=== PATIENT | female | born 1995 | race Caucasian/White ===

== ENCOUNTER 2021-05-29 16:43 | Emergency (ER) | payer OTHER, SELFPAY ==
[2021-05-29 16:48] VITALS: BP 140/62; PULSE 95; RESP 16; TEMP 36.8; O2SAT 99
[2021-05-29 17:01] VITALS: BP 140/62; PULSE 95; RESP 16; TEMP 36.8; O2SAT 99
--- NOTE | 2021-05-29 17:08 | ED.URI ---
HPI - URI/Sore Throat General Chief Complaint: Upper Respiratory Infection Stated Complaint: Fever/Cough/Sore Throat Time Seen by Provider: 05/29/21 17:00 Source: patient and RN notes reviewed Mode of arrival: ambulatory Limitations: no limitations History of Present Illness HPI Narrative: 26-year-old female presents with concern for fever, cough, body aches, sore throat since yesterday. Reports her son was diagnosed with influenza B 2 days ago. In a separate complaint she reports 3-day history of left lower dental/wisdom tooth pain. She denies difficulty swallowing. Reports she has been taking ibuprofen. MD elicited complaint: cough and sore throat Related Data Home Medications Medication Instructions Recorded Confirmed levothyroxine [Euthyrox] 200 mcg PO DAILY 05/29/21 05/29/21 venlafaxine 75 mg PO DAILY 05/29/21 05/29/21 Allergies Allergy/AdvReac Type Severity Reaction Status Date / Time adalimumab Allergy Unknown HIVES Verified 05/29/21 17:00 cefprozil Allergy Unknown Hives / Verified 05/29/21 17:00 Red Face Cephalosporins Allergy Unknown Hives / Verified 05/29/21 17:00 Red Face naproxen Allergy Unknown Hives Verified 05/29/21 17:00 etanercept AdvReac Unknown Hives / Verified 05/29/21 17:00 Red Face CEFUROXIME AXETIL Allergy Unknown Hives / Uncoded 01/26/18 11:02 Red Face Review of Systems Review of Systems: CONSTITUTIONAL: Reports malaise, fever. EYES: Denies visual changes, redness, or discharge. ENT: Denies rhinorrhea, congestion, sinus pain, otalgia. Reports sore throat. CARDIOVASCULAR: Denies chest pain, palpitations, or edema. RESPIRATORY: Reports cough. Denies dyspnea. GASTROINTESTINAL: Denies abdominal pain, nausea, vomiting, diarrhea SKIN: Denies rash or itching. MUSCULOSKELETAL: Reports myalgia. NEUROLOGIC: Denies headache. All systems reviewed & are unremarkable except as noted in HPI and below PMFSH Comments At time of signature, agree with nursing past medical, surgical, social and family history. There is no relevant family history pertinent to the presenting complaint Exam Narrative: GENERAL: Nontoxic-appearing and in no acute distress. HEAD: Normocephalic EYES: PERRLA, conjunctivae clear ENT: Nares clear, clear discharge. Mucous membranes moist. TM pearly henderson with dull light reflex bilaterally; no tragal tenderness. Oropharynx not erythematous without lesions. Tonsils not enlarged and without exudate, no drooling, no hoarseness, no trismus, uvula midline. Carry noted tooth #17 with mild gingival erythema and edema NECK: Supple. No lymphadenopathy CHEST: Clear to auscultation, breath sounds equal. No wheezing, rhonchi, rales, or stridor. No respiratory distress, speaks in full sentences. HEART: Regular rate and rhythm. No murmur heard. SKIN: Warm, dry, no rash. NEURO: Alert and oriented x3. PSYCH: Normal mood and affect Course Course Emergency Course: Patient is aware of diagnosis, understands and agrees to treatment plan. Anticipatory guidance given. Patient agrees to follow-up as directed and is aware of reasons to seek care at the emergency department. Portions of this record may have been created with voice recognition software Level of Care: Express Care Visit Vital Signs Vital signs: Vital Signs Temperature 98.2 F 05/29/21 16:48 Pulse Rate 95 05/29/21 16:48 Respiratory Rate 16 05/29/21 16:48 Blood Pressure 140/62 05/29/21 16:48 Pulse Oximetry 99 05/29/21 16:48 Temperature 98.2 F 05/29/21 17:01 Pulse Rate 95 05/29/21 17:01 Respiratory Rate 16 05/29/21 17:01 Blood Pressure 140/62 05/29/21 17:01 Pulse Oximetry 99 05/29/21 17:01 Reviewed. MDM - URI/Sore Throat MDM Narrative Medical decision making narrative: Differential diagnosis considered: Bonner virus, strep pharyngitis, allergic rhinitis, upper respiratory tract infection, sinusitis, rhinosinusitis, nasopharyngitis. viral pharyngitis, otitis media, otitis externa, pn
== END 2021-05-29 17:13 | disposition home or self-care (01) ==
PROVIDERS: Emergency Provider Nurse Practitioner
DX: B34.9 Viral infection, unspecified (principal); K08.89 Other specified disorders of teeth and supporting structures; J45.909 Unspecified asthma, uncomplicated; M06.9 Rheumatoid arthritis, unspecified; E03.9 Hypothyroidism, unspecified; F32.A Depression, unspecified
CPT/HCPCS: 87804; 99203; G0463

== ENCOUNTER 2021-06-13 14:08 | Emergency (ER) | payer OTHER, SELFPAY ==
--- NOTE | 2021-06-13 14:16 | ED.URI ---
HPI - URI/Sore Throat General Chief Complaint: Upper Respiratory Infection Stated Complaint: tight chest congestion Time Seen by Provider: 06/13/21 14:16 Source: patient and RN notes reviewed History of Present Illness HPI Narrative: Patient is a 26-year-old female who presents the urgent care with complaints of chest congestion, wheezing, congestion and runny nose. Patient states she has been running a fever since Sunday. States that her boyfriend was positive for influenza and COVID. Patient states that her rapid COVID at home was negative. Patient has been taking Mucinex, Tylenol and DayQuil. No other acute complaints. No acute distress noted. Patient aware of the plan of care. Some parts of this dictation were generated by voice recognition software and may contain typographical and/or grammatical inaccuracies. Related Data Home Medications Medication Instructions Recorded Confirmed levothyroxine [Euthyrox] 200 mcg PO DAILY 05/29/21 06/13/21 venlafaxine 75 mg PO DAILY 05/29/21 06/13/21 Allergies Allergy/AdvReac Type Severity Reaction Status Date / Time adalimumab Allergy Unknown HIVES Verified 06/13/21 14:13 cefprozil Allergy Unknown Hives / Verified 06/13/21 14:13 Red Face Cephalosporins Allergy Unknown Hives / Verified 06/13/21 14:13 Red Face naproxen Allergy Unknown Hives Verified 06/13/21 14:13 etanercept AdvReac Unknown Hives / Verified 06/13/21 14:13 Red Face CEFUROXIME AXETIL Allergy Unknown Hives / Uncoded 01/26/18 11:02 Red Face Review of Systems Review of Systems: CONSTITUTIONAL: Reports of fever, chills, sweats EYES: Denies visual changes, redness, or discharge. ENT: Reports of postnasal drainage, rhinorrhea, congestion CARDIOVASCULAR: Denies chest pain, palpitations, or edema. RESPIRATORY: Reports of cough and wheezing GASTROINTESTINAL: Denies abdominal pain, nausea, vomiting, or diarrhea. GENITOURINARY: Denies dysuria or hematuria. SKIN: Denies rash or itching. MUSCULOSKELETAL: Denies back pain, joint pain. Reports of body aches NEUROLOGIC: Denies headache, numbness, or weakness. All other systems reviewed are negative, except as documented in HPI. PMFSH Comments At the time of my signature, I reviewed and agree with the nursing past medical, surgical, social, and family history. There is no relevant family history pertinent to the patient complaint. Exam Narrative: GENERAL: This is a well-nourished, well-developed patient, appears fatigued HEAD: normocephalic, atraumatic. EYES: PERRL. Sclera clear/white. Vision is grossly intact. EARS: External ears normal, auditory canals clear and without drainage, TMs normal without perforation. Hearing grossly intact. NOSE: External nose normal with no obvious nasal discharge. Mild bilateral erythemic nares with copious amounts of yellow rhinorrhea THROAT: Mucous membranes moist. Moderate postnasal drainage NECK: Neck supple CARDIOVASCULAR: Regular rate and rhythm without murmurs, gallops, or rubs. RESPIRATORY: Wheezes and crackles throughout. SKIN: warm, intact with no suspicious lesions or rash, good texture and turgor. NEURO: awake, alert, and oriented to person, place and time. There were no obvious focal neurologic abnormalities. EXTREMITIES: No clubbing, cyanosis, or edema. Course Course Level of Care: Express Care Visit Vital Signs Vital signs: Vital Signs Temperature 98.8 F 06/13/21 14:18 Pulse Rate 100 06/13/21 14:18 Respiratory Rate 22 H 06/13/21 14:18 Blood Pressure 118/78 06/13/21 14:18 Pulse Oximetry 98 06/13/21 14:18 Temperature 98.8 F 06/13/21 14:18 Pulse Rate 100 06/13/21 14:18 Respiratory Rate 22 H 06/13/21 14:18 Blood Pressure 118/78 06/13/21 14:18 Pulse Oximetry 98 06/13/21 14:18 Reviewed MDM - URI/Sore Throat MDM Narrative Medical decision making narrative: Reviewed lab results with the patient. She is aware that she is positive for COVID. Flu swab was negative. Advis
[2021-06-13 14:18] VITALS: BP 118/78; PULSE 100; RESP 22; TEMP 37.1; O2SAT 98
== END 2021-06-13 15:00 | disposition home or self-care (01) ==
PROVIDERS: Emergency Provider Nurse Practitioner Family
DX: U07.1 COVID-19 (principal)
CPT/HCPCS: 87426; 87804; 99213; C9803; G0463

== ENCOUNTER 2021-08-02 10:35 | Emergency (ER) | payer OTHER, SELFPAY ==
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
[2021-08-02 10:39] VITALS: BP 121/82; PULSE 87; RESP 16; TEMP 37.3; O2SAT 100
== END 2021-08-02 10:56 | disposition home or self-care (01) ==
PROVIDERS: Emergency Provider Nurse Practitioner Family
DX: H66.92 Otitis media, unspecified, left ear (principal); L01.00 Impetigo, unspecified; J45.909 Unspecified asthma, uncomplicated; Z86.16 Personal history of COVID-19; M06.9 Rheumatoid arthritis, unspecified; F32.A Depression, unspecified
CPT/HCPCS: 99213; G0463

== ENCOUNTER 2021-10-22 17:18 | Emergency (ER) | payer OTHER, SELFPAY ==
[2021-10-22 17:40] VITALS: BP 126/81; PULSE 99; RESP 16; TEMP 36.3; O2SAT 98
--- NOTE | 2021-10-22 18:33 | ED.EAR ---
HPI - Ear Problem General Chief complaint: Ear Stated complaint: ear inf Time Seen by Provider: 10/22/21 18:33 Source: patient, RN notes reviewed and old records reviewed Mode of arrival: ambulatory Limitations: no limitations History of Present Illness HPI Narrative: 26-year-old female who presents to [facility] care with complaints of past history of some ear infection and ear pain with complaints to 3 days of bilateral earpain. Patient states that she has nbeen on Augment for the past 4 days for sinus infection. Patient denies any fevers or chills or sweats, reports no drainage from her ears, positive for greater ear pain to right than to left ear. MD Complaint: ear pain Location: bilateral Severity: moderate (2/10 to left ear, 7/10 to right ear) Discharge from ear: Reports no Treatment prior to arrival: other (on antibiotic for 4 days,DayQuil, Benadryl, Ibuprofen) Related Data Home Medications Medication Instructions Recorded Confirmed levothyroxine 200 mcg tablet 200 mcg PO DAILY 05/29/21 10/22/21 (Euthyrox) venlafaxine 75 mg tablet 75 mg PO BID 05/29/21 10/22/21 Allergies Allergy/AdvReac Type Severity Reaction Status Date / Time adalimumab Allergy Unknown HIVES Verified 10/22/21 17:50 cefprozil Allergy Unknown Hives / Verified 10/22/21 17:50 Red Face Cephalosporins Allergy Unknown Hives / Verified 10/22/21 17:50 Red Face naproxen Allergy Unknown Hives Verified 10/22/21 17:50 etanercept AdvReac Unknown Hives / Verified 10/22/21 17:50 Red Face CEFUROXIME AXETIL Allergy Unknown Hives / Uncoded 01/26/18 11:02 Red Face Review of Systems Review of Systems: CONSTITUTIONAL: Denies fever, chills, or sweats. EYES: Denies visual changes, redness, or discharge. ENT: Positive for rhinorrhea, congestion,no sore throat, positive for bilatral otalgia. CARDIOVASCULAR: Denies chest pain, palpitations, or edema. RESPIRATORY: Denies cough or dyspnea. GASTROINTESTINAL: Denies abdominal pain, nausea, vomiting, or diarrhea. GENITOURINARY: Denies dysuria or hematuria. SKIN: Denies rash or itching. MUSCULOSKELETAL: Denies back pain, joint pain, or myalgia. NEUROLOGIC: Denies headache, numbness, or weakness. PSYCHIATRIC: Positive for anxiety or depression. All systems reviewed & are unremarkable except as noted in HPI and below PMFSH Past Medical History Medical History (Updated 10/26/21 @ 20:26 by Melissa Colorado NP) Anxiety and depression Asthma COVID-23 Jun 2021 Hypothyroid PTSD (post-traumatic stress disorder) Surgical History Surgical History (Updated 10/26/21 @ 20:26 by Melissa Colorado NP) History of tonsillectomy S/P ureteral stent placement several ureteral stent surgeries Social History Social History (Updated 10/26/21 @ 20:21 by Melissa Colorado NP) Smoking status: Current every day smoker Tobacco type: e-cigarettes/vaping Alcohol intake: unknown Substance use type: marijuana Living arrangements: with family Gender identity (if verbalized by the patient): Female Comments At time of signature, agree with nursing past medical, surgical, social and family history. There is no relevant family history pertinent to the presenting complaint Exam Narrative: GENERAL: Well-appearing, well-nourished, and in no acute distress. HEAD: Normocephalic, atraumatic. EYES: PERRLA and EOMI. ENT: Nares with minimal redness, clear rhinorrhea no epistaxis. Mucous membranes moist.TM;s normal bilaterally ear canals bilaterally red and excoriated with some swelling to right ear canal throat pink no tonsils present. NECK: Supple. no lymphadenopathy CHEST: Clear to auscultation. No respiratory distress.[id number]% on room air HEART: Regular rate and rhythm. No murmur heard. Normal peripheral pulses. ABDOMEN: Soft, nontender, nondistended, normal active bowel sounds. EXTREMITIES: Normal range of motion. No edema. SKIN: Warm, dry, no rash. NEURO: No focal deficits. Alert and oriented x3. Course
== END 2021-10-22 18:55 | disposition home or self-care (01) ==
PROVIDERS: Emergency Provider Registered Nurse; PCP Family Medicine
DX: H60.313 Diffuse otitis externa, bilateral (principal)
CPT/HCPCS: 99213; G0463

== ENCOUNTER 2021-12-01 11:44 | Emergency (ER) | payer OTHER, SELFPAY ==
[2021-12-01 12:04] VITALS: BP 120/81; PULSE 81; RESP 18; TEMP 35.8; O2SAT 100
--- NOTE | 2021-12-01 13:01 | ED.URI ---
HPI - URI/Sore Throat General Chief Complaint: Upper Respiratory Infection Stated Complaint: Body Aches,Congestion,Sore Throat Time Seen by Provider: 12/01/21 13:01 Source: patient and RN notes reviewed Mode of arrival: ambulatory Limitations: no limitations History of Present Illness HPI Narrative: 44-year-old female presented for complaints of fever for 2 days. Temp 101 at onset. Reports body aches, sinus congestion and sore throat. Started with n/v/d today while at work. Endorses sick contacts, works at daycare. Taking up to 800mg ibuprofen every 5-6 hours. Denies cough, sob, wheezing. MD elicited complaint: cough Related Data Home Medications Medication Instructions Recorded Confirmed levothyroxine 200 mcg tablet 200 mcg PO DAILY 05/29/21 10/22/21 (Euthyrox) venlafaxine 75 mg tablet 75 mg PO BID 05/29/21 10/22/21 Allergies Allergy/AdvReac Type Severity Reaction Status Date / Time adalimumab Allergy Unknown HIVES Verified 10/22/21 17:50 cefprozil Allergy Unknown Hives / Verified 10/22/21 17:50 Red Face Cephalosporins Allergy Unknown Hives / Verified 10/22/21 17:50 Red Face naproxen Allergy Unknown Hives Verified 10/22/21 17:50 etanercept AdvReac Unknown Hives / Verified 10/22/21 17:50 Red Face CEFUROXIME AXETIL Allergy Unknown Hives / Uncoded 01/26/18 11:02 Red Face Review of Systems Review of Systems: CONSTITUTIONAL: Endorses malaise, chills, sweats, fever EYES: Denies visual changes, redness, or discharge ENT: Reports rhinorrhea, congestion, denies sinus pain, otalgia CARDIOVASCULAR: Denies chest pain, palpitations, edema RESPIRATORY: Reports cough, post nasal drainage. Denies dyspnea GASTROINTESTINAL: Denies abdominal pain SKIN: Denies rash PMFSH Past Medical History Medical History Anxiety and depression Asthma COVID-23 Jun 2021 Hypothyroid PTSD (post-traumatic stress disorder) Surgical History Surgical History History of tonsillectomy S/P ureteral stent placement several ureteral stent surgeries Social History Social History Smoking status: Current every day smoker Tobacco type: e-cigarettes/vaping Alcohol intake: unknown Substance use type: marijuana Gender identity (if verbalized by the patient): Female Exam Narrative: GENERAL: Ill-appearing, nontoxic EYES: PERRLA, conjunctivae clear ENT: Mucous membranes moist. TM pearly henderson with dull light reflex bilaterally; no tragal tenderness. Oropharynx erythematous without lesions or exudate, tonsils absent. no drooling, no hoarseness, no trismus, uvula midline. No tripod positioning, muffled voice, soft palate or pharyngeal wall bulging NECK: Supple. No lymphadenopathy CHEST: Clear to auscultation, breath sounds equal. HEART: Regular rate and rhythm. No murmur heard. ABD: Soft, nontender SKIN: Warm, dry, no rash. Course Course Emergency Course: Patient is aware of diagnosis, understands and agrees to treatment plan. Anticipatory guidance given. Patient agrees to follow-up as directed and is aware of reasons to seek care at the emergency department. Portions of this record may have been created with voice recognition software Level of Care: Express Care Visit Vital Signs Vital signs: Vital Signs Temperature 96.5 F L 12/01/21 12:04 Pulse Rate 81 12/01/21 12:04 Respiratory Rate 18 12/01/21 12:04 Blood Pressure 120/81 12/01/21 12:04 Pulse Oximetry 100 12/01/21 12:04 Oxygen Delivery Room Air 12/01/21 12:04 Temperature 96.5 F L 12/01/21 12:04 Pulse Rate 81 12/01/21 12:04 Respiratory Rate 18 12/01/21 12:04 Blood Pressure 120/81 12/01/21 12:04 Pulse Oximetry 100 12/01/21 12:04 Oxygen Delivery Room Air 12/01/21 12:04 reviewed MDM - URI/Sore Throat MDM Narrative Medical decision
== END 2021-12-01 13:20 | disposition home or self-care (01) ==
PROVIDERS: Emergency Provider Nurse Practitioner Family
DX: B34.9 Viral infection, unspecified (principal); Z20.822 Contact with and (suspected) exposure to COVID-19; F17.290 Nicotine dependence, other tobacco product, uncomplicated; J45.909 Unspecified asthma, uncomplicated; E03.9 Hypothyroidism, unspecified; F41.9 Anxiety disorder, unspecified; F32.A Depression, unspecified; F43.10 Post-traumatic stress disorder, unspecified; Z86.16 Personal history of COVID-19
CPT/HCPCS: 87081; 87426; 87804; 87880; 99213; C9803; G0463

== ENCOUNTER 2022-03-15 09:36 | Emergency (ER) | payer OTHER, SELFPAY ==
[2022-03-15 10:33] VITALS: BP 118/71; PULSE 79; RESP 18; TEMP 36.6; O2SAT 100; O2SAT 98
[2022-03-15 10:34] VITALS: BP 118/71; O2SAT 100
[2022-03-15 10:35] VITALS: O2SAT 100
--- NOTE | 2022-03-15 10:39 | ED.GENADULT ---
HPI - General Adult General Chief complaint: Vaginal Bleeding Stated complaint: vaginal bleeding Time Seen by Provider: 03/15/22 09:48 Source: patient Mode of arrival: ambulatory Limitations: no limitations History of Present Illness HPI narrative: Patient is a 26 y/o female who presents to the ED with c/o vaginal bleeding. Patient reports she started a new combined oral control pill, , 12 days ago. She was not previously on control. She had her last normal cycle approximately 2.5 weeks ago. Patient states she developed some light vaginal spotting last night. The bleeding became heavier and she noticed she is passing some clots. Bleeding persisted into today, which prompted her presentation. Patient sees an [facility] in [place], [place]. She also reports some lower abdominal cramping, but denies fever, nausea, vomiting, urinary symptoms. Related Data Home Medications Medication Instructions Recorded Confirmed levothyroxine 200 mcg tablet 200 mcg PO DAILY 05/29/21 12/01/21 (Euthyrox) venlafaxine 75 mg tablet 75 mg PO BID 05/29/21 12/01/21 Allergies Allergy/AdvReac Type Severity Reaction Status Date / Time adalimumab AdvReac Mild HIVES Verified 12/01/21 19:11 cefprozil AdvReac Mild Hives / Verified 12/01/21 19:11 Red Face Cephalosporins AdvReac Mild Hives / Verified 12/01/21 19:11 Red Face etanercept AdvReac Mild Hives / Verified 12/01/21 19:11 Red Face naproxen AdvReac Mild Hives Verified 12/01/21 19:11 CEFUROXIME AXETIL AdvReac Mild Hives / Uncoded 12/01/21 19:11 Red Face Review of Systems Review of Systems: CONSTITUTIONAL: Denies fever, chills, or sweats. CARDIOVASCULAR: Denies chest pain. RESPIRATORY: Denies dyspnea. GASTROINTESTINAL: See HPI. GENITOURINARY: See HPI. All systems reviewed & are unremarkable except as noted in HPI and below PMFSH Past Medical History Medical History Anxiety and depression Asthma COVID-23 Jun 2021 Hypothyroid PTSD (post-traumatic stress disorder) Surgical History Surgical History History of tonsillectomy S/P ureteral stent placement several ureteral stent surgeries Social History Social History Smoking status: Current every day smoker Tobacco type: e-cigarettes/vaping Alcohol intake: unknown Substance use type: marijuana Living arrangements: with family Gender identity (if verbalized by the patient): Female Exam Narrative: GENERAL: Well appearing, obese, non-toxic, in no acute distress. HEAD: Normocephalic, atraumatic. NECK: Supple. No adenopathy, no masses. RESPIRATORY: Airway patent, respirations nonlabored. Clear to auscultation bilaterally, no rales, rhonchi, wheezing. CARDIOVASCULAR: Regular rate and rhythm without murmurs, rubs, or gallops. Peripheral pulses 2+ and equal bilaterally. ABDOMINAL: Soft, no significant tenderness to palpation throughout abdomen, nondistended, no hepatosplenomegaly. Normoactive BS. PELVIC: Normal external genitalia. Very mild amount of bleeding in vaginal vault. No brisk bleeding, pooling of blood, or signs of hemorrhage. Normal-appearing cervix. No significant CMT. MUSCULOSKELETAL: Moves all extremities. Strength/ROM intact without gross deformities. SKIN: Warm, dry, normal color. No rashes. NEURO: A&O X3. Speech clear. Cranial nerves II-XII grossly intact. Steady gait. No ataxic movements. PSYCHIATRIC: Appropriate mood and affect. Normal interaction. Course Vital Signs Vital signs: Vital Signs Temperature 98 F 03/15/22 10:33 Pulse Rate 79 03/15/22 10:33 Respiratory Rate 18 03/15/22 10:33 Blood Pressure 118/71 03/15/22 10:33 Pulse Oximetry 100 03/15/22 10:33 Oxygen Delivery Room Air 03/15/22 10:33 Temperature 98 F 03/15/22 12:15 Pulse Rate 71 03/15/22 12:15 Respira
[2022-03-15 11:16] LABS: Basophils Percent Auto 0.2 % (0.2-1.2); Eosinophils Percent Auto 0.6 % (0-4.4); Hematocrit 38.5 % (37.0-47.0); Hemoglobin 12.6 g/dL (12.0-15.0); Immature Granulocyte Absolute 0.01 K/mm3 (0.00-0.031); Immature Granulocyte Percent A 0.2 % (0-0.5); Lymphocytes Absolute Auto 1.68 K/mm3 (0.9-3.2); Lymphocytes Percent Auto 32.4 % (18.3-44.2); Mean Corpuscular HGB Conc 32.7 g/dl (32-36); Mean Corpuscular Hemoglobin 25.2 pg (26-34); Mean Platelet Volume 10.4 fl (7.4-10.4); Monocytes Absolute Auto 0.3 K/mm3 (0.1-0.6); Monocytes Percent Auto 6.6 % (2.6-8.5); Neutrophils Absolute Auto 3.1 K/mm3 (1.3-6.7); Platelet Count Result 245 k/mm3 (150-375); Red Cell Distribution Width 15.7 % (11.5-14.5); White Blood Count 5.2 K/mm3 (4.5-10.0)
[2022-03-15 11:17] LABS: Appearance Urine Clear (Clear); Bilirubin Urine Negative (Negative); Blood Urine 3+ (Negative); Color Urine Yellow (Yellow); Glucose Urine UA Negative (Negative); Ketones Urine Negative (Negative); Leukocyte Esterase Ur Negative LEU/UL (Negative); Nitrate Urine Negative (Negative); Protein Urine Negative (Negative); Specific Grav Ur 1.025 (1.001-1.035); Urobilinogen Urine 0.2 mg/dL (<2.0); pH Urine 5.5 (5.0-9.0)
[2022-03-15 11:24] LABS: Bacteria Urine Trace /hpf; Mucus Urine Rare /lpf; RBC Urine >75 /hpf (0-2); Squamous Epithelial Cell Urine Few /hpf (Few)
[2022-03-15 11:25] LABS: Add Urine Microscopic? YES
[2022-03-15 11:26] LABS: Alanine Aminotransferase 28 U/L (6-35); Albumin Level 4.4 g/dL (3.5-5.1); Alkaline Phosphatase 51 U/L (38-126); Anion Gap 5 mmol/L (8-16); Aspartate Amino Transferase 25 U/L (14-36); Bilirubin,Total 0.4 mg/dL (0.2-1.3); Blood Urea Nitrogen 10 mg/dL (7-17); Calcium 8.8 mg/dL (8.4-10.2); Carbon Dioxide 26 mmol/L (22-30); Chloride 104 mmol/L (98-107); Estimated CRCL calculation 125 ml/min; Estimated Glomerular Filt Rate > 60; Glucose 120 mg/dL (65-110); Potassium 3.7 mmol/L (3.4-5.0); Sodium 135 mmol/L (137-145)
[2022-03-15 12:15] VITALS: PULSE 71; TEMP 36.6
== END 2022-03-15 12:30 | disposition home or self-care (01) ==
PROVIDERS: Emergency Provider Physician Assistant
DX: N93.9 Abnormal uterine and vaginal bleeding, unspecified (principal); F41.9 Anxiety disorder, unspecified; F32.9 Major depressive disorder, single episode, unspecified; J45.909 Unspecified asthma, uncomplicated; E03.9 Hypothyroidism, unspecified; Z86.16 Personal history of COVID-19
CPT/HCPCS: 36415; 80053; 81001; 81025; 85025; 99284

== ENCOUNTER 2022-03-20 08:49 | Emergency (ER) | payer OTHER, SELFPAY ==
[2022-03-20 08:52] VITALS: BP 130/56; PULSE 82; RESP 20; TEMP 37.1; O2SAT 100
--- NOTE | 2022-03-20 10:00 | ED.GENADULT ---
HPI - General Adult General Chief complaint: Upper Respiratory Infection Stated complaint: Vomitng/Sore Throat Time Seen by Provider: 03/20/22 10:00 Source: patient, RN notes reviewed and old records reviewed Mode of arrival: ambulatory Limitations: no limitations History of Present Illness HPI narrative: 26 year old female who presents today with complaints of sore throat since Sunday and also some nausea and vomiting started on Sunday. Patient reports on Sunday she started feeling a little stuffy with some sinus drainage and dry cough, reports fever this morning of 101F. Patient reports she has been taking DayQuil for her symptoms. patient has had COVID vaccinations but has not had Flu shot. Patient does work in a daycare. MD complaint: sore throat, nasal congestion Onset (ago): day(s) (2) Severity scale (1-10): 4 Treatments prior to arrival: other (Dayquil) Related Data Home Medications Medication Instructions Recorded Confirmed levothyroxine 200 mcg tablet 200 mcg PO DAILY 05/29/21 03/20/22 (Euthyrox) venlafaxine 75 mg tablet 75 mg PO BID 05/29/21 03/20/22 Allergies Allergy/AdvReac Type Severity Reaction Status Date / Time cefuroxime Allergy Mild Hives Verified 03/20/22 09:38 adalimumab AdvReac Mild HIVES Verified 03/20/22 09:38 cefprozil AdvReac Mild Hives / Verified 03/20/22 09:38 Red Face Cephalosporins AdvReac Mild Hives / Verified 03/20/22 09:38 Red Face etanercept AdvReac Mild Hives / Verified 03/20/22 09:38 Red Face naproxen AdvReac Mild Hives Verified 03/20/22 09:38 Review of Systems Review of Systems: CONSTITUTIONAL reports malaise, chills, sweats, or fever. EYES: Denies visual changes, redness, or discharge. ENT: Reports rhinorrhea, congestion,no sinus pain, no otalgia positive sore throat. CARDIOVASCULAR: Denies chest pain, palpitations, or edema. RESPIRATORY: Reports cough.? Denies dyspnea. GASTROINTESTINAL: Denies abdominal pain, positive for nausea, vomiting,no diarrhea SKIN: Denies rash or itching. MUSCULOSKELETAL: Denies myalgia. NEUROLOGIC: Denies headache. All systems reviewed & are unremarkable except as noted in HPI and below PMFSH Past Medical History Medical History Anxiety and depression Asthma COVID-23 Jun 2021 Hypothyroid PTSD (post-traumatic stress disorder) Surgical History Surgical History History of tonsillectomy S/P ureteral stent placement several ureteral stent surgeries Social History Social History Smoking status: Current every day smoker Tobacco type: e-cigarettes/vaping Alcohol intake: unknown Substance use type: marijuana Living arrangements: with family Gender identity (if verbalized by the patient): Female Comments At time of signature, agree with nursing past medical, surgical, social and family history. There is no relevant family history pertinent to the presenting complaint Exam Narrative: GENERAL: Well-appearing, well-nourished, and in no acute distress. HEAD: Normocephalic EYES: PERRLA, conjunctivae clear ENT: Nares clear, turbinates edematous and erythematous, clear discharge. Mucous membranes moist. TM pearly henderson with dull light reflex bilaterally; no tragal tenderness. Oropharynx erythematous without lesions. Tonsils not present, throat red with no exudate, no drooling, no hoarseness, no trismus, uvula midline.Painful swallowing. NECK: Supple. lymphadenopathy CHEST: Clear to auscultation, breath sounds equal. No wheezing, rhonchi, rales, or stridor. No respiratory distress, speaks in full sentences.cough, [id number]% on room air. HEART: Regular rate and rhythm. No murmur heard. SKIN: Warm, dry, no rash. NEURO: Alert and oriented x3. PSYCH: Normal mood and affect Course Course Emergency Course: Patient is aware o
== END 2022-03-20 10:15 | disposition home or self-care (01) ==
PROVIDERS: Emergency Provider Registered Nurse
DX: J02.0 Streptococcal pharyngitis (principal); F41.9 Anxiety disorder, unspecified; F32.A Depression, unspecified; E03.9 Hypothyroidism, unspecified; F43.10 Post-traumatic stress disorder, unspecified; Z86.16 Personal history of COVID-19; F17.290 Nicotine dependence, other tobacco product, uncomplicated
CPT/HCPCS: 87880; 99213; G0463

== ENCOUNTER 2022-06-12 09:06 | Emergency (ER) | payer OTHER, SELFPAY ==
[2022-06-12 09:14] VITALS: BP 123/71; PULSE 99; RESP 20; TEMP 37.1; O2SAT 99
--- NOTE | 2022-06-12 09:53 | ED.URI ---
HPI - URI/Sore Throat General Chief Complaint: Upper Respiratory Infection Stated Complaint: cold/flu/throat Time Seen by Provider: 06/12/22 09:54 Source: patient, RN notes reviewed and old records reviewed Mode of arrival: ambulatory Limitations: no limitations History of Present Illness HPI Narrative: 27-year-old female presents to [facility] with complaints of sore throat, body aches cough with some chest congestion with no fevers since yesterday. Patient reports that she had negative COVID test at work today. Patient reports that she has not had any fevers, has been taking Ibuprofen for her symptoms. Patient rates her throat pain as 4/10, denies any dyspnea or inability to swallow. MD elicited complaint: cough and sore throat Pertinent past history: other (strep) Onset (ago): day(s) (since yesterday) Pain scale (0-10): 4 Able to tolerate fluids by mouth: Yes Exacerbating factors: swallowing Treatments prior to arrival: ibuprofen Related Data Home Medications Medication Instructions Recorded Confirmed venlafaxine 75 mg tablet 75 mg PO BID 05/29/21 06/12/22 levothyroxine 200 mcg tablet 200 mcg PO DAILY 06/12/22 06/12/22 ziprasidone HCl 40 mg capsule 40 mg PO DAILY 06/12/22 06/12/22 Allergies Allergy/AdvReac Type Severity Reaction Status Date / Time cefuroxime Allergy Mild Hives Verified 06/12/22 09:39 adalimumab AdvReac Mild HIVES Verified 06/12/22 09:39 cefprozil AdvReac Mild Hives / Verified 06/12/22 09:39 Red Face Cephalosporins AdvReac Mild Hives / Verified 06/12/22 09:39 Red Face etanercept AdvReac Mild Hives / Verified 06/12/22 09:39 Red Face naproxen AdvReac Mild Hives Verified 06/12/22 09:39 Review of Systems Review of Systems: CONSTITUTIONAL:Reports malaise,no chills, sweats, or fever. EYES: Denies visual changes, redness, or discharge. ENT: Reports rhinorrhea, congestion, no sinus pain, no otalgia positive for sore throat. CARDIOVASCULAR: Denies chest pain, palpitations, or edema. RESPIRATORY: Reports cough.? Denies dyspnea. GASTROINTESTINAL: Denies abdominal pain, nausea, vomiting, diarrhea SKIN: Denies rash or itching. MUSCULOSKELETAL:Reports myalgia. NEUROLOGIC: Denies headache. All systems reviewed & are unremarkable except as noted in HPI and below PMFSH Past Medical History Medical History Anxiety and depression Asthma COVID-23 Jun 2021 Hypothyroid PTSD (post-traumatic stress disorder) Surgical History Surgical History History of tonsillectomy S/P ureteral stent placement several ureteral stent surgeries Social History Social History Smoking status: Current every day smoker Tobacco type: e-cigarettes/vaping Alcohol intake: unknown Substance use type: marijuana Living arrangements: with family Gender identity (if verbalized by the patient): Female Comments At time of signature, agree with nursing past medical, surgical, social and family history. There is no relevant family history pertinent to the presenting complaint Exam Narrative: GENERAL: Well-appearing, well-nourished, and in no acute distress. HEAD: Normocephalic EYES: PERRLA, conjunctivae clear ENT: Nares clear, turbinates edematous and erythematous, clear discharge. Mucous membranes moist. TM pearly henderson with dull light reflex bilaterally; no tragal tenderness. Oropharynx erythematous without lesions. Tonsils not present and throat without exudate, no drooling, no hoarseness, no trismus, uvula midline. NECK: Supple. lymphadenopathy CHEST: Clear to auscultation, breath sounds equal. No wheezing, rhonchi, rales, or stridor. No respiratory distress, speaks in full sentences. cough present SAO2 99% on room air HEART: Regular rate and rhythm. No murmur heard. SKIN: Warm, dry, no rash. NEURO: Alert and
== END 2022-06-12 10:12 | disposition home or self-care (01) ==
PROVIDERS: Emergency Provider Registered Nurse
DX: J02.0 Streptococcal pharyngitis (principal); F41.9 Anxiety disorder, unspecified; F32.A Depression, unspecified; E03.9 Hypothyroidism, unspecified; F43.10 Post-traumatic stress disorder, unspecified; Z86.16 Personal history of COVID-19
CPT/HCPCS: 87880; 99213; G0463

== ENCOUNTER 2022-10-27 09:26 | Emergency (ER) | payer OTHER, SELFPAY ==
[2022-10-27 09:34] VITALS: BP 117/78; PULSE 87; RESP 16; TEMP 36.7; O2SAT 99
--- NOTE | 2022-10-27 09:38 | ED.URI ---
HPI - URI/Sore Throat General Chief Complaint: Upper Respiratory Infection Stated Complaint: Sore Throat Time Seen by Provider: 10/27/22 09:51 Source: patient, RN notes reviewed and old records reviewed Mode of arrival: ambulatory Limitations: no limitations History of Present Illness HPI Narrative: 27-year-old female presents to the [facility] with complaints of a sore throat, right ear pain Symptoms started yesterday. Patient states even though she does not have tonsils that she had strep frequently. Patient is diabetic, has a Dexcom, currently blood blood sugar reading 177 Onset (ago): day(s) (1) Related Data Home Medications Medication Instructions Recorded Confirmed venlafaxine 75 mg tablet 75 mg PO BID 05/29/21 10/27/22 levothyroxine 200 mcg tablet 200 mcg PO DAILY 06/12/22 10/27/22 ziprasidone HCl 40 mg capsule 40 mg PO DAILY 06/12/22 10/27/22 rosuvastatin 20 mg tablet 20 mg PO DAILY 10/27/22 10/27/22 venlafaxine 37.5 mg 37.5 mg PO DAILY 10/27/22 10/27/22 capsule,extended release 24 hr Allergies Allergy/AdvReac Type Severity Reaction Status Date / Time cefuroxime Allergy Mild Hives Verified 06/12/22 09:39 adalimumab AdvReac Mild HIVES Verified 06/12/22 09:39 cefprozil AdvReac Mild Hives / Verified 06/12/22 09:39 Red Face Cephalosporins AdvReac Mild Hives / Verified 06/12/22 09:39 Red Face etanercept AdvReac Mild Hives / Verified 06/12/22 09:39 Red Face naproxen AdvReac Mild Hives Verified 06/12/22 09:39 Review of Systems Review of Systems: All systems reviewed & are unremarkable except as noted in HPI and below Constitutional: Constitutional: Reports no additional constitutional complaints Eyes: Eyes: Reports no additional eye complaints ENT: Reports as per HPI, Reports otalgia and Reports sore throat Cardiovascular: Cardiovascular: Reports no additional cardiovascular complaints, Denies chest pain and Denies dyspnea Respiratory: Respiratory: Reports as per HPI, Denies chest congestion, Reports cough and Denies dyspnea Gastrointestinal: Gastrointestinal: Reports no additional gastrointestinal complaints, Denies abdominal pain, Denies nausea and Denies vomiting Musculoskeletal: Musculoskeletal: Reports no additional musculoskeletal complaints Integumentary/Breasts: Skin/Breast: Reports system reviewed and no additional complaints, except as docu Neurologic: Reports system reviewed and no additional complaints, except as documented Psychiatric: Psychiatric: Reports no additional psychiatric complaints Allergic/Immunologic: Allergic/Immunologic: Reports no additional allergic/immunologic complaints PMFSH Past Medical History Medical History Anxiety and depression Asthma COVID-23 Jun 2021 Hypothyroid PTSD (post-traumatic stress disorder) Surgical History Surgical History History of tonsillectomy S/P ureteral stent placement several ureteral stent surgeries Social History Social History Smoking status: Current every day smoker Tobacco type: e-cigarettes/vaping Alcohol intake: unknown Substance use type: marijuana Living arrangements: with family Gender identity (if verbalized by the patient): Female Comments At the time of my signature, I reviewed and agree with the nursing past medical, surgical, social, and family history. There is no relevant family history pertinent to the patient complaint. Exam Const: General: cooperative, healthy appearing, comfortable, no acute distress, well developed, alert and well nourished Nutritional Appearance: well nourished and obese Orientation/consciousness: patient oriented x3 Limitations: no limitations HENMT: Head: normal to inspection Ears: hearing grossly normal bilaterally, external ears normal, EAC's normal and TM abnormal with fluid behind the TM gee
== END 2022-10-27 10:33 | disposition home or self-care (01) ==
PROVIDERS: Emergency Provider Nurse Practitioner
DX: J02.9 Acute pharyngitis, unspecified (principal); J06.9 Acute upper respiratory infection, unspecified; F17.290 Nicotine dependence, other tobacco product, uncomplicated; F12.90 Cannabis use, unspecified, uncomplicated; J45.909 Unspecified asthma, uncomplicated; E03.9 Hypothyroidism, unspecified; F41.9 Anxiety disorder, unspecified; F32.A Depression, unspecified; F43.10 Post-traumatic stress disorder, unspecified; Z96.0 Presence of urogenital implants
CPT/HCPCS: 87081; 87880; 99213; G0463

== ENCOUNTER 2023-07-16 18:33 | Emergency (ER) | payer OTHER, SELFPAY ==
[2023-07-16 18:40] VITALS: BP 129/66; PULSE 73; RESP 20; TEMP 36.6; O2SAT 100
--- NOTE | 2023-07-16 19:09 | ED.URI ---
HPI - URI/Sore Throat General Chief Complaint: Upper Respiratory Infection Stated Complaint: Sore Throat Time Seen by Provider: 07/16/23 19:00 Source: patient, RN notes reviewed and old records reviewed Mode of arrival: ambulatory Limitations: no limitations History of Present Illness HPI Narrative: 28 year old female who presents to [facility] with complaints of 2 day history of sore throat, very painful to swallow, fatigue states history of frequent strep. Patient reports that she has been taking Ibuprofen for her pain, reports that she has felt feverish with some chills and sweats, denies any body aches. Patient is Typw 1 diabetic, has insulin pump with Dexcom glucose monitor. MD elicited complaint: sore throat and other (fatigue, painful swallowing, has felt feverish) Pertinent past history: pneumonia, asthma and other (strep throat) Onset (ago): day(s) (2) Pain scale (0-10): 8 Able to tolerate fluids by mouth: Yes Exacerbating factors: swallowing Treatments prior to arrival: ibuprofen Related Data Home Medications Medication Instructions Recorded Confirmed venlafaxine 75 mg tablet 75 mg PO BID 05/29/21 07/16/23 levothyroxine 200 mcg tablet 200 mcg PO DAILY 06/12/22 07/16/23 rosuvastatin 20 mg tablet 20 mg PO DAILY 10/27/22 07/16/23 venlafaxine 37.5 mg 37.5 mg PO DAILY 10/27/22 07/16/23 capsule,extended release 24 hr blood-glucose sensor (Dexcom G6 07/16/23 07/16/23 Sensor device) insulin pump cart,automated,BT 07/16/23 07/16/23 (Omnipod 5 G6 Pods (Gen 5) subcutaneous cartridge) norgestimate 0.25 mg-ethinyl See Rx Instructions .Route .COMPLEX 07/16/23 07/16/23 estradiol 35 mcg tablet (Sprintec (28)) ziprasidone HCl 40 mg capsule 40 mg PO DAILY 07/16/23 07/16/23 Allergies Allergy/AdvReac Type Severity Reaction Status Date / Time cefuroxime Allergy Mild Hives Verified 07/16/23 19:08 adalimumab AdvReac Mild HIVES Verified 07/16/23 19:08 cefprozil AdvReac Mild Hives / Verified 07/16/23 19:08 Red Face Cephalosporins AdvReac Mild Hives / Verified 07/16/23 19:08 Red Face etanercept AdvReac Mild Hives / Verified 07/16/23 19:08 Red Face naproxen AdvReac Mild Hives Verified 07/16/23 19:08 Review of Systems Review of Systems: CONSTITUTIONAL: Reports malaise, chills, sweats, has felt feverish. EYES: Denies visual changes, redness, or discharge. ENT: Reports rhinorrhea, congestion,no sinus pain,no otalgia and positive for sore throat. CARDIOVASCULAR: Denies chest pain, palpitations, or edema. RESPIRATORY: Reports no cough.? Denies dyspnea. GASTROINTESTINAL: Denies abdominal pain, nausea, vomiting, diarrhea SKIN: Denies rash or itching. MUSCULOSKELETAL: Denies myalgia. NEUROLOGIC: Denies headache. All systems reviewed & are unremarkable except as noted in HPI and below PMFSH Past Medical History Medical History Anxiety and depression Asthma COVID-23 Jun 2021 Diabetes type I Hypothyroid PTSD (post-traumatic stress disorder) Surgical History Surgical History History of tonsillectomy S/P ureteral stent placement several ureteral stent surgeries Social History Social History Smoking status: Current every day smoker Tobacco type: e-cigarettes/vaping Alcohol intake: unknown Substance use type: marijuana Living arrangements: with family Gender identity (if verbalized by the patient): Female Comments At time of signature, agree with nursing past medical, surgical, social and family history. There is no relevant family history pertinent to the presenting complaint Exam Narrative: GENERAL: Well-appearing, well-nourished, and in no acute distress. HEAD: Normocephalic EYES: PERRLA, conjunctivae clear ENT: Nares clear, turbinates edematous and erythematous, clear discharge. Mucou
== END 2023-07-16 19:35 | disposition home or self-care (01) ==
PROVIDERS: Emergency Provider Registered Nurse
DX: J02.9 Acute pharyngitis, unspecified (principal); F17.290 Nicotine dependence, other tobacco product, uncomplicated; J45.909 Unspecified asthma, uncomplicated; E10.9 Type 1 diabetes mellitus without complications; E03.9 Hypothyroidism, unspecified; Z86.16 Personal history of COVID-19; Z96.0 Presence of urogenital implants; F41.9 Anxiety disorder, unspecified; F32.A Depression, unspecified; Z96.41 Presence of insulin pump (external) (internal)
CPT/HCPCS: 87081; 87880; 99213; G0463

== ENCOUNTER 2023-10-08 09:41 | Emergency (ER) | payer OTHER, SELFPAY ==
[2023-10-08 09:46] VITALS: BP 101/61; PULSE 81; RESP 20; TEMP 36.7; O2SAT 100
--- NOTE | 2023-10-08 09:55 | ED.HA ---
HPI - Headache General Chief Complaint: Headache Stated Complaint: migraine Time Seen by Provider: 10/08/23 09:56 Source: patient, RN notes reviewed and old records reviewed Mode of arrival: ambulatory Limitations: no limitations History of Present Illness HPI Narrative: 28 year old female presents to [facility] with complaints of migraine headache which started early this morning 0300 behind her eyes with nausea. Patient states she took Excedrin Migraine at 0400 and went to work but she had to leave work due to pain. Patient is Type I diabetic and is on insulin pump and Dexcom which she reports that sugars have been running higher lately reports that she thinks it is from stress.Patient reports that she has history of migraines usually every couple of month or so occurrence. Patient has no medication for nausea at home states that she normally can take Excedrin migraine and Ibuprofen and it helps but is bad today rates pain 7/10. Patient reports that she needs to get to a dark room and needs a work note. MD elicited complaint: migraine Pertinent past history: migraines and other Onset (ago): hour(s) (0300) Location: frontal and other (behind eyes) Pain scale (0-10): 7 Associated symptoms: nausea Treatments prior to arrival: ibuprofen and other (Excedrin migraine) Related Data Home Medications Medication Instructions Recorded Confirmed venlafaxine 75 mg tablet 75 mg PO BID 05/29/21 07/16/23 levothyroxine 200 mcg tablet 200 mcg PO DAILY 06/12/22 07/16/23 rosuvastatin 20 mg tablet 20 mg PO DAILY 10/27/22 07/16/23 venlafaxine 37.5 mg 37.5 mg PO DAILY 10/27/22 07/16/23 capsule,extended release 24 hr blood-glucose sensor (Dexcom G6 07/16/23 07/16/23 Sensor device) insulin pump cart,automated,BT 07/16/23 07/16/23 (Omnipod 5 G6 Pods (Gen 5) subcutaneous cartridge) norgestimate 0.25 mg-ethinyl See Rx Instructions .Route .COMPLEX 07/16/23 07/16/23 estradiol 35 mcg tablet (Sprintec (28)) ziprasidone HCl 40 mg capsule 40 mg PO DAILY 07/16/23 07/16/23 Allergies Allergy/AdvReac Type Severity Reaction Status Date / Time cefuroxime Allergy Mild Hives Verified 07/16/23 19:08 adalimumab AdvReac Mild HIVES Verified 07/16/23 19:08 cefprozil AdvReac Mild Hives / Verified 07/16/23 19:08 Red Face Cephalosporins AdvReac Mild Hives / Verified 07/16/23 19:08 Red Face etanercept AdvReac Mild Hives / Verified 07/16/23 19:08 Red Face naproxen AdvReac Mild Hives Verified 07/16/23 19:08 Review of Systems Review of Systems: CONSTITUTIONAL: Denies fever, chills, or sweats. EYES: Denies visual changes, redness, or discharge.pain behind eyes ENT: Denies rhinorrhea, congestion, sore throat, or otalgia. CARDIOVASCULAR: Denies chest pain, palpitations, or edema. RESPIRATORY: Denies cough or dyspnea. GASTROINTESTINAL: Denies abdominal pain,reports nausea,no vomiting, or diarrhea. GENITOURINARY: Denies dysuria or hematuria. SKIN: Denies rash or itching. MUSCULOSKELETAL: Denies back pain, joint pain, or myalgia. NEUROLOGIC: Reports migraine headache, no numbness, or weakness. PSYCHIATRIC: Positive for history of anxiety or depression. All systems reviewed & are unremarkable except as noted in HPI and below PMFSH Past Medical History Medical History (Updated 10/09/23 @ 08:06 by Melissa Colorado NP) Anxiety and depression Asthma COVID-23 Jun 2021 Diabetes type I Hx of migraines Hypothyroid PTSD (post-traumatic stress disorder) Surgical History Surgical History History of tonsillectomy S/P ureteral stent placement several ureteral stent surgeries Social History Social History Smoking status: Current every day smoker Tobacco type: e-cigarettes/vaping Alcohol intake: unknown Substance use type: marijuana Living arrangements: with family Gender identity (if verbalized by the patient):
== END 2023-10-08 10:13 | disposition home or self-care (01) ==
PROVIDERS: Emergency Provider Registered Nurse
DX: G43.909 Migraine, unspecified, not intractable, without status migrainosus (principal); F17.290 Nicotine dependence, other tobacco product, uncomplicated; J45.909 Unspecified asthma, uncomplicated; E10.9 Type 1 diabetes mellitus without complications; Z96.41 Presence of insulin pump (external) (internal); E06.9 Thyroiditis, unspecified; Z96.0 Presence of urogenital implants; F41.9 Anxiety disorder, unspecified; F32.A Depression, unspecified; Z86.16 Personal history of COVID-19
CPT/HCPCS: 99213; G0463

== ENCOUNTER 2024-01-12 09:33 | Emergency (ER) | payer OTHER, SELFPAY ==
[2024-01-12 10:15] VITALS: BP 117/59; PULSE 73; RESP 16; TEMP 36.3; O2SAT 100
--- NOTE | 2024-01-12 10:43 | ED.GENADULT ---
HPI - General Adult General Chief complaint: Dental/Oral Stated complaint: Toothache Source: patient Mode of arrival: ambulatory Limitations: no limitations History of Present Illness HPI narrative: Patient presents for evaluation of left upper dental pain. Symptom onset yesterday. She woke from sleep this morning with mild left sided facial swelling. Pain is constant, throbbing, 8/10 in severity. She has had similar symptoms in the past. She has an impacted wisdom tooth in the area where she is experiencing pain. No fever, chills, nausea, vomiting or sore throat. She has been taking ibuprofen for her symptoms. Related Data Home Medications Medication Instructions Recorded Confirmed venlafaxine 75 mg tablet 75 mg PO BID 05/29/21 01/12/24 levothyroxine 200 mcg tablet 200 mcg PO DAILY 06/12/22 01/12/24 rosuvastatin 20 mg tablet 20 mg PO DAILY 10/27/22 01/12/24 venlafaxine 37.5 mg 37.5 mg PO DAILY 10/27/22 01/12/24 capsule,extended release 24 hr blood-glucose sensor (Dexcom G6 07/16/23 01/12/24 Sensor device) insulin pump cart,automated,BT 07/16/23 01/12/24 (Omnipod 5 G6 Pods (Gen 5) subcutaneous cartridge) norgestimate 0.25 mg-ethinyl See Rx Instructions .Route .COMPLEX 07/16/23 01/12/24 estradiol 35 mcg tablet (Sprintec (28)) ziprasidone HCl 40 mg capsule 40 mg PO DAILY 07/16/23 01/12/24 Allergies Allergy/AdvReac Type Severity Reaction Status Date / Time cefuroxime Allergy Mild Hives Verified 01/12/24 10:01 prednisone AdvReac Severe Other Verified 01/12/24 10:03 adalimumab AdvReac Mild HIVES Verified 01/12/24 10:01 cefprozil AdvReac Mild Hives / Verified 01/12/24 10:01 Red Face Cephalosporins AdvReac Mild Hives / Verified 01/12/24 10:01 Red Face etanercept AdvReac Mild Hives / Verified 01/12/24 10:01 Red Face naproxen AdvReac Mild Hives Verified 01/12/24 10:01 Review of Systems Review of Systems: CONSTITUTIONAL: Denies fever, chills, or sweats. EYES: Denies visual changes, redness, or discharge. ENT: Reports left upper dental pain with associated mild facial swelling. Denies rhinorrhea, congestion, sore throat, or otalgia. CARDIOVASCULAR: Denies chest pain, palpitations, or edema. RESPIRATORY: Denies cough or dyspnea. GASTROINTESTINAL: Denies abdominal pain, nausea, vomiting, or diarrhea. GENITOURINARY: Denies dysuria or hematuria. SKIN: Denies rash or itching. MUSCULOSKELETAL: Denies back pain, joint pain, or myalgia. NEUROLOGIC: Denies headache, numbness, dizziness, or weakness. PSYCHIATRIC: Denies anxiety or depression. [facility], [facility] Past Medical History Medical History Anxiety and depression Asthma COVID-23 Jun 2021 Diabetes type I Hx of migraines Hypothyroid PTSD (post-traumatic stress disorder) Surgical History Surgical History History of tonsillectomy S/P ureteral stent placement several ureteral stent surgeries Family History Family History Mother Family history non-contributory Social History Social History Smoking status: Current every day smoker Tobacco type: e-cigarettes/vaping Alcohol intake: unknown Substance use type: marijuana Living arrangements: with family Gender identity (if verbalized by the patient): Female Exam Narrative: GENERAL: Well-appearing, well-nourished, and in no acute distress. HEAD: Normocephalic, atraumatic. EYES: PERRLA and EOMI. ENT: Left upper with some to this impacted. There is tenderness in the gumline at that site. Nares clear, no rhinorrhea or epistaxis. Mucous membranes moist. Oropharynx without tonsillar hypertrophy exudate or other lesions. Bilateral TMs pearly henderson nonbulging NECK: Supple. No adenopathy or masses. No carotid bruits or JVD CHEST: Clear to auscultation. No respiratory distress. No wheezes rales or rhonchi HEART: Regular rate and rhythm. No murmur heard. Normal peripheral pulses. ABDOMEN: Soft, nontender, nondistended, normal active bowel sounds. EXTREMITIES: Normal range of motion. No edema. SKIN: Warm, dry, no rash. NEURO: No focal deficits. Alert and oriented x3. PSYCH: Normal mood and affect. Course Course Emergency Course: This is a 28 yr old female who presented with left upper dental pain. She has an impacted tooth. Will tx with amoxicillin and tramadol. Follow-up with primary provider and dentist. Go to the ER for worsening symptoms. Patient in agreement with plan care. Level of Care: Express Care Visit Vital Signs Vital signs: Vital Signs Temperature 36.3 C L 01/12/24 10:15 Pulse Rate 73 01/12/24 10:15 Respiratory Rate 16 01/12/24 10:15 Blood Pressure 117/59 L 01/12/24 10:15 Pulse Oximetry 100 01/12/24 10:15 Oxygen Delivery Room Air 01/12/24 10:15 Temperature 36.3 C L 01/12/24 10:15 Pulse Rate 73 01/12/24 10:15 Respiratory Rate 16 01/12/24 10:15 Blood Pressure 117/59 L 01/12/24 10:15 Pulse Oximetry 100 01/12/24 10:15 Oxygen Delivery Room Air 01/12/24 10:15 Medical Decision Making Vital Signs Vital Signs: Vital Signs Temperature 36.3 C L 01/12/24 10:15 Pulse Rate 73 01/12/24 10:15 Respiratory Rate 16 01/12/24 10:15 Blood Pressure 117/59 L 01/12/24 10:15 Pulse Oximetry 100 01/12/24 10:15 Oxygen Delivery Room Air 01/12/24 10:15 Temperature 36.3 C L 01/12/24 10:15 Pulse Rate 73 01/12/24 10:15 Respiratory Rate 16 01/12/24 10:15 Blood Pressure 117/59 L 01/12/24 10:15 Pulse Oximetry 100 01/12/24 10:15 Oxygen Delivery Room Air 01/12/24 10:15 Discharge Plan Discharge Clinical Impression: Impacted tooth Patient Disposition: Home, Self-Care Condition: Stable Instructions: Antibiotic Form, Toothache (ED) Patient Language: Ukrainian Prescriptions: New amoxicillin 500 mg tablet 500 mg PO TID Qty: 30 0RF tramadol 50 mg tablet 50 mg PO Q8H PRN (Reason: pain) Qty: 15 0RF No Action venlafaxine 75 mg Tablet 75 mg PO BID levothyroxine 200 mcg tablet 200 mcg PO DAILY venlafaxine 37.5 mg capsule,extended release 24hr 37.5 mg PO DAILY rosuvastatin 20 mg tablet 20 mg PO DAILY norgestimate-ethinyl estradiol [Sprintec (28)] 0.25-35 mg-mcg tablet See Rx Instructions .ROUTE .COMPLEX Rx Instructions: PRESCRIBED ziprasidone HCl 40 mg capsule 40 mg PO DAILY (DME) Dexcom G6 Sensor Device MISCELLANEOUS (DME) Omnipod 5 G6 Pods (Gen 5) Cartridge SUBCUT sumatriptan succinate [Imitrex] 50 mg tablet See Rx Instructions .ROUTE .COMPLEX Qty: 10 0RF Rx Instructions: take 1 tab at onset of headache; if no relief may repeat 1 tab after at least 2 hrs; max = 4 tabs/24 hr Follow-up/Referrals: Hank Alanis [Other] Stand Alone Forms: Work/School Release IP Time of Disposition: 10:42
== END 2024-01-12 10:45 | disposition home or self-care (01) ==
PROVIDERS: Emergency Provider Nurse Practitioner
DX: K01.1 Impacted teeth (principal); F17.290 Nicotine dependence, other tobacco product, uncomplicated; F12.90 Cannabis use, unspecified, uncomplicated; E10.9 Type 1 diabetes mellitus without complications; E03.9 Hypothyroidism, unspecified; J45.909 Unspecified asthma, uncomplicated; F41.9 Anxiety disorder, unspecified; F32.A Depression, unspecified; F43.10 Post-traumatic stress disorder, unspecified; Z86.16 Personal history of COVID-19; Z96.0 Presence of urogenital implants
CPT/HCPCS: 99213; G0463

== ENCOUNTER 2024-03-17 14:17 | Emergency (ER) | payer OTHER, SELFPAY ==
[2024-03-17 14:20] VITALS: BP 108/69; PULSE 90; RESP 20; TEMP 36.8; O2SAT 100
--- OUTSIDE RECORDS SUMMARY | 2024-03-17 14:31 | XMS_ITS | Clinical Summary ---
Author Organization [facility] Address [address] [place] [id number] Care Team Providers Care [employer] Name Role Phone None, Provider MD Primary Care Provider Unavaila ble Allergies Active Allergy Reactions Criticality Noted Date Comments Cephalosporins Rash Low 01/09/2021 Medications levothyroxine 100 MCG tablet Take 200 mcg by mouth every morning. Active hydrOXYzine 25 MG capsule Take 25 mg by mouth. Active sertraline 100 MG tablet Take 100 mg by mouth daily. Active loratadine (CLARITIN) 10 MG tablet Take 1 tablet (10 mg total) by mouth daily. 30 tablet 01/09/2021 Active Active Problems No known active problems Immunizations Name Administration Dates Next Due MODERNA COVID-19 (12+) MRNA, LNP-S, PF, 100 MCG/ 0.5 ML DOSE 10/12/2020,09/21/2020 Family History Medical History Relation Comments None Neg Hx Social History Tobacco Use Types Packs/Day Years Used Date Smoking Tobacco: Never Smokeless Tobacco: Never Alcohol Use Standard Drinks/Week Comments Yes 0 (1 standard drink = 0.6 oz pur e alcohol) rarely Comments Unknown Sex and Gender Information Value Date Recorded Sex Assigned at Not on file Legal Sex Female 10:51 AM [employer] Gender Identity Not on file Sexual Orientation Not on file Last Filed Vital Signs Vital Sign Reading Time Taken Comments Blood Pressure 107/71 01/09/2021 11:06 AM [employer] Pulse 100 01/09/2021 11:06 AM [employer] Temperature 36.1 C (96.9 F) 01/09/2021 11:06 AM [employer] Respiratory Rate 18 01/09/2021 11:06 AM [employer] Oxygen Saturation 100% 01/09/2021 11:06 AM [employer] Inhaled Oxygen Concentration - - Weight 108.9 kg (240 lb) 01/09/2021 11:06 AM [employer] Height 177.8 cm (5' 10 ) 01/09/2021 11:06 AM [employer] Body Mass Index 34.44 01/09/2021 11:06 AM [employer] Plan of Treatment Health Maintenance Due Date Last Done Comments Cervical Cancer Screening Pap Smear (Age 21 to 29) Every 3 Years 1996 Cervical Cancer Screening 1996 Annual Physical 04/30/1999 Hepatitis C 2014 COVID-19 Vaccine ( season) 2023 10/12/2020, 09/21/2020 Influenza Adult (#1) 2023 02/13/2020, 10/24/2012, 12/14/2011, Additional history exists DTaP, Tdap and Td Vaccines (6 - Td or Tdap) 03/17/2030 03/17/2020, 02/13/2020, 08/06/2011, Additional history exists Hepatitis B Vaccines Completed 1996, 1996, 1996, Additional history exists HPV Vaccines Completed 08/04/2010, 03/09, 01/20/2010 Meningococcal Vaccine Aged Out 12/14/2011 No becky waldemar eligible based on patient's age to complete this topic Meningococcal B Vaccine Aged Out No l onger eligible based on patient's age to complete this topic Pneumococcal Vaccine: Pediatrics (0 to 5 Years) and At-Risk Patients (6 to 64 Years) Aged Out No longer eligible based on patient's age to complete this topic RSV Immunizations Under 20 Months Aged Out No longer eligible based on patient's age to complete this topic Insurance [employer] Care Teams [employer] Relationship Specialty Start Date End Date None, Provider, PCP - General 01/09/21
--- OUTSIDE RECORDS SUMMARY | 2024-03-17 14:31 | XMS_ITS | Clinical Summary ---
Author Organization [facility] Address [address] [place] [address] Care Team Providers Care Forder Operator Name Role Phone Miles Duckworth MD Unavailable [phone] Hank Alanis MD Primary Care Provider Caryn Castellon NP Unavailable [phone] Allergies Active Allergy Reactions Criticality Noted Date Comments Adalimumab Hives Medium Cefprozil Hives Medium Cefuroxime Hives Medium Cephalosporins Hives Medium Etanercept Hives Medium Naproxen Hives Medium Medications alcohol swabs (Alcohol Wipes) pads, medicated Use as directed to clean skin prior to insulin injection and finger sticks. E10.65 400 each 023 Active glucagon (Gvoke HypoPen 2-Pack) 1 mg/0.2 mL auto-injectorIndi cations:patient with diabetes mellitus at risk of hypoglycemia Inject 0.2 mL under the skin as needed (for severe hypoglycemia requiring the assistance of another.) E10.65 0.2 mL 11 023 Active OneTouch Delica Plus Lancet 33 gauge misc Inject 1 Device under the skin 4 (four) times a day before meals and nightly E10.65 400 each 023 Active pen needle, diabetic 32 gauge x 5/32 needle Use as directed 4 times a day. E10.65 400 each 023 Active Additional Information Patient not taking.Reported on 03/11/2024 rosuvastatin (CRESTOR) 20 mg tablet Take 1 tablet (20 mg total) by mouth daily 90 tablet 3 023 Active Additional Information Patient not taking.Reported on 03/11/2024 insulin lispro (HumaLOG, ADMELOG) 100 unit/mL pen for injectionIndicati ons:type 1 diabetes mellitus Inject 12 Units under the skin 3 (three) times a day with meals E10.65 45 mL 3 023 Active insulin glargine (LANTUS) 100 unit/mL (3 mL) pen for injection Inject 42 Units under the skin nightly E10.65 45 mL 3 023 Active Additional Information Patient not taking.Reported on 03/11/2024 insulin pump cart,auto,BT-cntr (Omnipod 5 G6 Intro Kit, Gen 5,) cartridgeIndicati ons:Type 1 diabetes mellitus with hyperglycemia (HCC) Please provide 1 omnipod 5 G6 intro kit- (Gen 5) [facility] # [id number] e11.9 1 each Active insulin lispro (HumaLOG) 100 unit/mL vial for injection Fill omnipod with humalog insulin. Total daily dose of insulin 90 units 90 mL 3 024 Active Sprintec, 28, 0.25-35 mg-mcg per tablet Active venlafaxine XR (EFFEXOR-XR) 75 mg 24 hr capsuleIndication s:LUZ (generalized anxiety disorder),Recurre nt major depressive disorder, in partial remission (HCC) Take 1 capsule (75 mg total) by mouth 2 (two) times a day 180 capsule 1 Active ziprasidone (GEODON) 40 mg capsule Take 1 capsule (40 mg total) by mouth nightly 100 capsule 1 024 Active acetone, urine, test strip Test first AM urine and as directed 100 strip 11 024 Active Additional Information Patient not taking.Reported on 03/11/2024 venlafaxine XR (EFFEXOR-XR) 37.5 mg 24 hr capsuleIndication s:Recurrent major depressive disorder, in partial remission (HCC),LUZ (generalized anxiety disorder) Take 1 capsule (37.5 mg total) by mouth daily To be taken along with Venlafaxine 75 mg in am 90 capsule 1 024 2024 Active busPIRone (BUSPAR) 15 mg tabletIndications :Generalized Anxiety Disorder Take 1 tablet (15 mg total) by mouth 2 (two) times a day 180 tablet 1 024 Active clonazePAM (KlonoPIN) 0.5 mg tabletIndications :LUZ (generalized anxiety disorder) Take 1 tablet (0.5 mg total) by mouth daily as needed for anxiety 10 tablet 024 Active valACYclovir (VALTREX) 1 gram tabletIndications :History of cold sores Take 2 tabs (2000 mg) 2 times a days for 1 day. 10 tablet 1 025 Active traMADoL (ULTRAM) 50 mg tablet Take by mouth every 8 (eight) hours as needed 024 Active lidocaine viscous (XYLOCAINE) 2 % solutionIndicatio ns:Mouth Irritation Apply 10 mL to the mouth or throat 3 (three) times a day as needed (for mouth/dental pain) 210 mL 025 Active insulin logging specialist cart,aut,G6/7,cnt r (Omnipod 5 G6-G7 Intro Kt,Gen5,) cartridgeIndicati ons:Type 1 diabetes mellitus with hyperglycemia (HCC) Inject 1 Device under the skin continuously 1 each 1 025 Active lancets misc 1 each by other route daily Use to monitor blood sugar daily. E10.65 300 each 4 025 Active blood-glucose meter kit Use daily as directed for monitoring of blood sugar for diabetes. E10.65 1 kit 1 025 Active blood glucose diagnostic (glucose blood) strip Check blood sugar 3x times a day or as directed. E10.65 300 each 4 025 Active levothyroxine (SYNTHROID) 150 mcg tablet Take 1 tablet (150 mcg total) by mouth daily Take 30 minute prior to food on an empty stomach. 90 tablet 4 025 Active insulin pump cart,auto,BT,G6/7 (Omnipod 5 G6-G7 Pods, Gen 5,) cartridge Inject 1 Device under the skin continuously E10.65 30 each 4 025 Active OneTouch Verio Reflect Meter misc 023 2024 Discontinued(T herapy completed) blood-glucose transmitter (Dexcom G6 Transmitter) deviceIndications :Type 1 diabetes mellitus with hyperglycemia (HCC) 1 Device continuously Use to monitor blood sugar continuously, change every 90 days e11.65 1 each 3 04/08/ 024 2024 Discontinued(T herapy completed) blood-glucose sensor (Dexcom G6 Sensor) deviceIndications :Type 1 diabetes mellitus with hyperglycemia (HCC) 1 Device continuously Use to check glucose level continuously; change every 10 days. E11.65 10 each 3 04/08/ 024 2024 Discontinued(T herapy completed) senna-docusate (PERICOLACE) 8.6-50 mgIndications:con stipation Take 1 tablet by mouth daily 90 tablet 3 024 2024 Discontinued(T herapy completed) insulin pump cart,automated,BT (Omnipod 5 G6 Pods, Gen 5,) cartridgeIndicati ons:Type 1 diabetes mellitus with hyperglycemia (HCC) Please provide 3 boxes (15 pods) omnipod 5 G6 Pod (Gen 5) [facility] # [id number] Change omnipod every 48-72 hrs. Total daily dose of insulin 100 units. e11.9 15 each 11 024 2024 Discontinued(T herapy completed) levothyroxine (SYNTHROID) 175 mcg tablet Take 1 tablet (175 mcg total) by mouth daily Take 30 minute prior to food on an empty stomach. 90 tablet 2 024 2024 Discontinued(R eorder) ondansetron ODT (ZOFRAN-ODT) 4 mg disintegrating tablet 024 2024 Discontinued(T herapy completed) SUMAtriptan (IMITREX) 50 mg tablet 024 2024 Discontinued(T herapy completed) blood glucose diagnostic (glucose blood) strip Use as directed up to four times a day. 400 each 3 024 2024 Discontinued(T herapy completed) valACYclovir (VALTREX) 1 gram tablet Take 2 tabs (2000 mg) 2 times a days for 1 day. 4 tablet 1 025 2024 Discontinued(R eorder) Omnipod 5 G6-G7 Pods, Gen 5, cartridge CHANGE OMNIPOD EVERY 48-72 HOURS. TOTAL DAILY DOSE OF INSULIN 100 UNITS 025 2024 Discontinued(T herapy completed) amoxicillin-clavu lanate (AUGMENTIN) 875-125 mg per tabletIndications :Dental infection Take 1 tablet by mouth 2 (two) times a day for 10 days 20 tablet 025 2024 lidocaine viscous (XYLOCAINE) 2 % solutionIndicatio ns:Mouth Irritation Apply 10 mL to the mouth or throat 3 (three) times a day as needed (for mouth/dental pain) 210 mL 025 2024 Discontinued insulin pump cart,auto,BT,G6/7 (Omnipod 5 G6-G7 Pods, Gen 5,) cartridge Inject 1 Device under the skin continuously E10.65 30 each 4 025 2024 Discontinued(R eorder) Active Problems Problem Noted Date Diagnosed Date Omnipod OP [address] 03/11/2024 Assessment & Plan (03/11/2024 4:19 PM FINANCIAL SPECIALIST): This is a chronic condition which is not at goal. Download reviewed from 02/27/2024 to 03/11/2024 Type of insulin pump- Omnipod 0 P5 Pump settings : Basal- 1.25 IC - 11.5 ISF-28 Active insulin time 3hrs. TARGET GLUCOSE-110 Avg BG- 213 Avg Total daily insulin- 62 units Avg daily basal - 36 units Avg daily bolus - 26 units Interpretation-average glucose 213. 60% time in range. 0 hypoglycemia. 40% hyperglycemia Sleep walking and eating 08/03/2023 Assessment & Plan (08/03/2023 11:03 AM CDT): - new diagnosis - reports symptoms over past 5 months - sleep walking and eating - on multiple medications Venlafaxine, Ziprasidone, Buspar and Clonazepam PRN only --> will lower Venlafaxine dose, see changes made on this visit - concern medications may play a role with parasomnias - also recommend in lab sleep study, referral placed to sleep medicine provider Microcytic anemia 05/03/2023 Assessment & Plan (05/03/2023 9:38 AM CDT): - Noted on lab work on 02/2023 in ED - Prior to that - Reports fatigue and states she has been taking iron supplements - recheck labs, additional labs also ordered for fatigue Lab Results Component Value Date IRON 39 11/29/2022 TIBC 359 11/29/2022 FERRITIN 15 11/29/2022 Lab Results Component Value Date VITB12 780 11/29/2022 Lab Results Component Value Date FOLATE 7.8 11/29/2022 Lab Results Component Value Date TSH 3.89 11/29/2022 Constipation 05/03/2023 Assessment & Plan (05/03/2023 9:56 AM CDT): - chronic condition, worse - worse since being on iron supplementation - start Pericolace daily and can add on laxative PRN Class 1 obesity due to exces s calories with serious comorbidity and body mass index (BMI) of 31.0 to 31.9 in adult 04/09/2023 Assessment & Plan (01/10/2024 3:13 PM FINANCIAL SPECIALIST): Wt Readings from Last 3 Encounters: 01/10/24 97.1 kg (214 lb) 12/02/23 96.3 kg (212 lb 3.2 oz) 11/06/23 94.8 kg (209 lb) Body mass index is 31.59 kg/m . - chronic condition, stable - has had significant improvement with weight loss this year - BMI Follow-up includes: nutrition counseling, exercise counseling and education provided - Recommend to exercise at least 30 minutes moderate to vigorous exercise most days of the week. (minimum 150 minutes weekly) Assessment & Plan (11/06/2023 4:51 PM CDT): Wt Readings from Last 3 Encounters: 11/06/23 94.8 kg (209 lb) 05/03/23 113.3 kg (249 lb 11.2 oz) 04/09/23 113.7 kg (250 lb 9.6 oz) Body mass index is 30.85 kg/m . - chronic condition --> significant improvement noted in terms of her weight with weight loss, has been staying active and exercising and also doing weight lifting - chronic condition, not at goal but improved, keep It up - BMI Follow-up includes: nutrition counseling, exercise counseling and education provided - Recommend to exercise at least 30 minutes moderate to vigorous exercise most days of the week. (minimum 150 minutes weekly) Assessment & Plan (08/03/2023 11:00 AM CDT): Wt Readings from Last 3 Encounters: 05/03/23 113.3 kg (249 lb 11.2 oz) 04/09/23 113.7 kg (250 lb 9.6 oz) 03/01/23 111.1 kg (245 lb) There is no height or weight on file to calculate BMI. - reports current weight of 231, exercising 5 days a week and has helped - chronic condition, not at goal but improved, keep It up - BMI Follow-up includes: nutrition counseling, exercise counseling and education provided - Recommend to exercise at least 30 minutes moderate to vigorous exercise most days of the week. (minimum 150 minutes weekly) Assessment & Plan (05/03/2023 9:33 AM CDT): Wt Readings from Last 3 Encounters: 05/03/23 113.3 kg (249 lb 11.2 oz) 04/09/23 113.7 kg (250 lb 9.6 oz) 03/01/23 111.1 kg (245 lb) Body mass index is 36.86 kg/m . - chronic condition, not at goal - BMI Follow-up includes: nutrition counseling, exercise counseling and education provided - Recommend to exercise at least 30 minutes moderate to vigorous exercise most days of the week. (minimum 150 minutes weekly) Assessment & Plan (04/09/2023 12:08 PM FINANCIAL SPECIALIST): This is a chronic condition which continues 3 lb weight loss since last office visit Encouraged healthy eating and exercise dexcom 7 continuous glucose monitoring device Assessment & Plan (03/11/2024 4:16 PM FINANCIAL SPECIALIST): Continuous glucose monitor (cgm) applied from 02/27/2024 to 03/11/2024 This device was placed for monitor and treatment of blood sugar. Interpretation of data- average glucose 171, 59% time in range, 0 hypoglycemia, 41% hyperglycemia. Assessment & Plan (04/09/2023 12:10 PM FINANCIAL SPECIALIST): Continuous glucose monitor (cgm) applied from 03/12/2023 to 03/25/2023 This device was placed for monitor and treatment of blood sugar. Interpretation of data- average glucose 158, 73% time in range, 0 hypoglycemia, 27% hyperglycemia. History of cold sores 02/13/2023 Overview (02/13/2023): - recurring conditions intermittently - has used Valtrex in past with success - 02/28 - contacted me and send in valtrex for use with outbreaks LUZ (generalized anxiety disorder) 12/15/2022 Assessment & Plan (01/10/2024 3:34 PM FINANCIAL SPECIALIST): - chronic condition, not at goal, worse - anxiety - worse - depression - worse - has coexisting depression and anxiety, PTSD (trauma to sister) - depression is well controlled but anxiety is not at goal - currently on Venlafaxine XR 75 mg BID, Ziprasidone 40 mg nightly, Buspar 7.5 mg BID --> increase Buspar to 15 mg BID, add Venlafaxine ER 37.5 in am to Venlafaxine XR 75 mg BID that she is taking, continue ziprasidone 40 mg nightly - struggles with panic attacks 3-4 times a week (feels short of breath, hot, throat tightness, sweating, fidgetign and has hard time falling asleep and staying asleep) ---> better controlled with clonazepam 0.5 mg BID PRN which she has uses <10 a month - has been on Prozac in teenage years, Citalopram, Zoloft, hydroxyzine - continue with current management with changes made above - referral placed to psychiatry, discussed to use resources from [facility] in [place] as well Assessment & Plan (11/06/2023 4:48 PM CDT): - chronic condition - anxiety - better controlled - depression - better controlled - has coexisting depression and anxiety, PTSD (trauma to sister) - depression is well controlled but anxiety is not at goal - currently on Venlafaxine XR 75 mg BID, Ziprasidone 40 mg nightly, Buspar 7.5 mg BID - struggles with panic attacks 3-4 times a week (feels short of breath, hot, throat tightness, sweating, fidgetign and has hard time falling asleep and staying asleep) ---> better controlled with clonazepam 0.5 mg BID PRN which she has uses <10 a month - has been on Prozac in teenage years, Citalopram, Zoloft, hydroxyzine - continue with current management with changes made above Assessment & Plan (08/03/2023 11:01 AM CDT): - chronic condition - anxiety - well controlled - depression - well controlled - has coexisting depression and anxiety, PTSD (trauma to sister) - depression is well controlled but anxiety is not at goal - currently on Venlafaxine XR 75 mg BID and Venlafaxine XR 37.5 mg daily as well ---> stop Venlafaxine XR 37.5 mg daily for now due to parasomnias - currently on Ziprasidone 40 mg nightly, Buspar 7.5 mg BID - has been on Hydroxyzine 25 mg TID PRN for anxiety - struggles with panic attacks 3-4 times a week (feels short of breath, hot, throat tightness, sweating, fidgetign and has hard time falling asleep and staying asleep) ---> better controlled since starting Clonazepam 0.5 mg BID PRn which she has uses <10 a month - has been on Prozac in teenage years, Citalopram, Zoloft, hydroxyzine - continue with current management with changes made above Assessment & Plan (05/03/2023 9:35 AM CDT): - chronic condition - anxiety improved but not at goal - depression - well controlled - has coexisting depression and anxiety, PTSD (trauma to sister) - depression is well controlled but anxiety is not at goal - currently on Venlafaxine XR 75 mg BID and Venlafaxine XR 37.5 mg daily as well - currently on Ziprasidone 40 mg nightly - has been on Hydroxyzine 25 mg TID PRN for anxiety - struggles with panic attacks 3-4 times a week (feels short of breath, hot, throat tightness, sweating, fidgetign and has hard time falling asleep and staying asleep) ---> better controlled since starting Clonazepam 0.5 mg BID PRn which she has uses <10 a month - has been on Prozac in teenage years, Citalopram, Zoloft, hydroxyzine - started Buspar 7.5 mg BID on prior visit for better anxiety management - continue with current management with changes made above Assessment & Plan (12/22/2022 5:17 AM FINANCIAL SPECIALIST): - chronic condition - anxiety improved but not at goal - depression - well controlled - has coexisting depression and anxiety, PTSD (trauma to sister) - depression is well controlled but anxiety is not at goal - currently on Venlafaxine XR 75 mg BID and Venlafaxine XR 37.5 mg daily as well - currently on Ziprasidone 40 mg nightly - has been on Hydroxyzine 25 mg TID PRN for anxiety - struggles with panic attacks 3-4 times a week (feels short of breath, hot, throat tightness, sweating, fidgetign and has hard time falling asleep and staying asleep) ---> better controlled since starting Clonazepam 0.5 mg BID PRn which she has uses <10 a month, refill provided - has been on Prozac in teenage years, Citalopram, Zoloft, hydroxyzine - start Buspar 7.5 mg BID, script sent in for better anxiety management - continue with current management with changes made above Assessment & Plan (12/15/2022 2:02 PM FINANCIAL SPECIALIST): - chronic condition, not at goal - has coexisting depression and anxiety, PTSD (trauma to sister) - depression is well controlled but anxiety is not at goal - currently on Venlafaxine XR 75 mg BID and Venlafaxine XR 37.5 mg daily as well - currently on Ziprasidone 40 mg nightly - has been on Hydroxyzine 25 mg TID PRN for anxiety - struggles with panic attacks 3-4 times a week (feels short of breath, hot, throat tightness, sweating, fidgetign and has hard time falling asleep and staying asleep) - has been on Prozac in teenage years, Citalopram, Zoloft - start Clonazepam 0.5 mg BID PRN only for better control of anxiety - continue with current management with changes made above Dyslipidemia due to type 1 diabetes mellitus 01/2023 Assessment & Plan (04/09/2023 12:07 PM FINANCIAL SPECIALIST): This is a chronic condition which is not at goal of LDL less than 70 Continue rosuvastatin Encouraged to eat healthy, include fresh fruits and vegetables daily and avoid eating fried foods more than once per week. Encouraged to take medications as prescribed. Assessment & Plan (12/15/2022 2:05 PM FINANCIAL SPECIALIST): - recent diagnosis, better controlled - in setting of T1DM - currently on Crestor 20 mg nightly - most recent lab as shown below - recheck labs, order placed and result as shown below - continue current management Lab Results Component Value Date CHOL 173 11/29/2022 CHOL 241 (H) 09/05/2022 Lab Results Component Value Date HDL 39 (L) 11/29/2022 HDL 36 (L) 09/05/2022 Lab Results Component Value Date LDLCALC 109 11/29/2022 LDLCALC 178 (H) 09/05/2022 Lab Results Component Value Date TRIG 126 11/29/2022 TRIG 144 09/05/2022 Preventative health care 11/16/2022 Assessment & Plan (12/15/2022 2:04 PM FINANCIAL SPECIALIST): - New or chronic worsening conditions: anxiety - Mental health: no significant psychiatric/mental health conditions affecting her day to day functioning - Dental health: Up to date with regular dental care and cleaning. Discussed importance of regular tooth brushing, flossing, and dental visits. - Nutrition: Stressed importance of moderation in sodium/caffeine intake, saturated fat and cholesterol, caloric balance, sufficient intake of fresh fruits, vegetables - Exercise: Stressed the importance of regular exercise - Immunizations: Age and sex appropriate immunizations reviewed and offered - Cervical Cancer screening: up to date, Follows with OBGYN Dr. Duckworth - Breast Cancer screening: n/a - Colon cancer screening: n/a - Lung cancer screening: n/a - Bone desnity/osteoporosis screening: n/a - control: none Rheumatoid arthritis with negative rheumatoid fa ctor 08/22/2022 Assessment & Plan (02/04/2024 12:01 AM FINANCIAL SPECIALIST): - chronic, unknown status - reports diagnosed in childhood at age 6 - used to be on medications for this, used to be seen at [facility] - not on any medications at this time - History of Rheumatoid arthritis involving both hands, unspecified whether rheumatoid factor present - obtained lab work - RA factor was negative on lab work, negative inflammatory markers noted in past - Referral placed to rheumatology again for further workup as prior referral did not go through, new referral placed to Dr. Garcia in [place], [place] placed XR Right hand 11/27 IMPRESSION: No acute fracture. 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 Occasional small erosion favored of the carpals. Given the history, this likely reflects underlying rheumatoid arthritis. There is flexion at the PIP joints of the 2nd through 5th fingers. There is extension of the DIP joint of the 3rd and 4th fingers. In these 2 fingers, this could reflect a boutonniere deformity as can be seen in patients with rheumatoid arthritis. As these views are expected to have the fingers flexed on the lateral views, the PIP joint flexion could be positional. Clinical correlation recommended. Assessment & Plan (11/06/2023 4:53 PM CDT): - chronic, reprots diagnosed in childhood at age 6 - used to be on medications for this, used to be seen at [facility] - not on any medications at this time - History of Rheumatoid arthritis involving both hands, unspecified whether rheumatoid factor present - obtained lab work - RA factor was negative on lab work, negative inflammatory markers noted in past - Referral placed to rheumatology for further workup in past but did not take place, new referral placed to Dr. Garcia XR Right hand 11/27 IMPRESSION: No acute fracture. 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 Occasional small erosion favored of the carpals. Given the history, this likely reflects underlying rheumatoid arthritis. There is flexion at the PIP joints of the 2nd through 5th fingers. There is extension of the DIP joint of the 3rd and 4th fingers. In these 2 fingers, this could reflect a boutonniere deformity as can be seen in patients with rheumatoid arthritis. As these views are expected to have the fingers flexed on the lateral views, the PIP joint flexion could be positional. Clinical correlation recommended. Assessment & Plan (12/22/2022 5:18 AM FINANCIAL SPECIALIST): - chronic, reprots diagnosed in childhood at age 6 - used to be on medications for this, used to be seen at [facility] - not on any medications at this time - History of Rheumatoid arthritis involving both hands, unspecified whether rheumatoid factor present - obtained lab work - RA factor was negative on lab work, negative inflammatory markers noted - Referral placed to rheumatology for further workup XR Right hand 11/27 IMPRESSION: No acute fracture. 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 Occasional small erosion favored of the carpals. Given the history, this likely reflects underlying rheumatoid arthritis. There is flexion at the PIP joints of the 2nd through 5th fingers. There is extension of the DIP joint of the 3rd and 4th fingers. In these 2 fingers, this could reflect a boutonniere deformity as can be seen in patients with rheumatoid arthritis. As these views are expected to have the fingers flexed on the lateral views, the PIP joint flexion could be positional. Clinical correlation recommended. Assessment & Plan (12/15/2022 2:04 PM FINANCIAL SPECIALIST): - chronic, reprots diagnosed in childhood at age 6 - used to be on medications for this, used to be seen at [facility] - not on any medications at this time - History of Rheumatoid arthritis involving both hands, unspecified whether rheumatoid factor present - obtained lab work - RA factor was negative on lab work, negative inflammatory markers noted - Referral to be placed to rheumatology for further workup XR Right hand 11/27 IMPRESSION: No acute fracture. 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 Occasional small erosion favored of the carpals. Given the history, this likely reflects underlying rheumatoid arthritis. There is flexion at the PIP joints of the 2nd through 5th fingers. There is extension of the DIP joint of the 3rd and 4th fingers. In these 2 fingers, this could reflect a boutonniere deformity as can be seen in patients with rheumatoid arthritis. As these views are expected to have the fingers flexed on the lateral views, the PIP joint flexion could be positional. Clinical correlation recommended. Type 1 diabetes mellitus with hyperglycemia 08/05 Assessment & Plan (04/09/2023 12:04 PM FINANCIAL SPECIALIST): This is a chronic condition which is at goal of less than 7%. Personally reviewed most recent A1c - Lab Results Component Value Date HGBA1C 6.7 04/09/2023 Personally reviewed POC blood sugar- at goal 80-180 Lab Results Component Value Date POCGLU 145 04/09/2023 Medication- ContinueLantus 30 units daily, Humalog 10 units 3 times a day 15 minutes prior to meals with correctional insulin (1:50). Will proceed with omnipod OP 5 Monitor blood sugar continuously with dexcom 6/7sensor. Encouraged annual eye exam. Monofilament foot exam completed. protective senses intact Personally reviewed CMP eGFR- 107 Kidney function- normal Urine microalbumin/creatinine ratio - at goal <30 not treated with DILIA/ARB B/P today- at goal of <140/90. Personally reviewed lipid panel. Not at Goal of less than 70. Continue rosuvastatin. Assessment & Plan (09/04/2022 3:37 PM CDT): This is a chronic condition which is improving, close to goal of less than 7%. Personally reviewed most recent A1c - Lab Results Component Value Date HGBA1C 9.9 (H) 08/19/2022 Glycemic management indicator is at 7.3% Personally reviewed POC blood sugar- Latest Reference Range & Units 09/04/22 14:46 Glucose POC mg/dL 122 at goal 80-180 Medication- Continue Lantus 30 units daily HS, Humalog 10 units 15 minutes prior to 3 meals a day-with a 1-50 correct Monitor blood sugar continuously with Dexcom 7 sensor. Encouraged annual eye exam. Monofilament foot exam completed. protective senses intact Personally reviewed CMP eGFR- 124 Kidney function- normal Urine microalbumin/creatinine ratio - order. goal <30 not treated with DILIA/ARB B/P today-at goal of <140/90. Ordered lipid panel. Goal of less than 70. Childbearing age, will consider statin therapy depending on LDL results. Acquired hypothyroidism 08/20/2022 Overview (11/06/2023): Managed by endocrinology Assessment & Plan (05/04/2023 10:22 AM CDT): - chronic, worse - need adjustment of her tyroid function based on lab test result obtained - diagnosed in teenage years, has T1DM, RA - currently on Levothyroxine 175 mcg daily - Recommend taking Levothryoxine on a empty stomach, which means one hour before eating or two hours after eating. - Discussed food in the stomach will interfere with absorption of Levothyroxine. - Discussed Calcium, antacids and iron supplements will interfere with the absorption of Levothyroxine, encouraged to take these at a different time of the day. - continue current therapy, recheck labs, order placed Lab Results Component Value Date TSH 10.15 (H) 05/03/2023 TSH 3.89 11/29/2022 TSH 0.17 (L) 08/19/2022 Assessment & Plan (04/09/2023 12:08 PM FINANCIAL SPECIALIST): This is a chronic condition which is at goal of TSH between 0.3 to 4.2 mclUnits/ml Personally reviewed lab. Lab Results Component Value Date TSH 3.89 11/29/2022 TSH 0.17 (L) 08/19/2022 TSH 69.64 (H) 10/29/2017 Continue Levothryoxine 175 mcg po daily in am Discussed the importance of taking Levothryoxine on a empty stomach, which means one hour before eating or two hours after eating. Discussed food in the stomach will interfere with absorption of Levothyroxine. Discussed Calcium, antacids and iron supplements will interfere with the absorption of Levothyroxine, encouraged to take these at a different time of the day. Assessment & Plan (12/15/2022 2:06 PM FINANCIAL SPECIALIST): - chronic, better controlled - diagnosed in teenage years, has T1DM, RA - currently on Levothyroxine 175 mcg daily (this was decreased from 200 mcg in August when she was diagnosed with T2DM and was noted to have too high of thyroid level) - recheck labs, most recent labs as shown below - Discussed the importance of taking Levothryoxine on a empty stomach, which means one hour before eating or two hours after eating. - Discussed food in the stomach will interfere with absorption of Levothyroxine. - Discussed Calcium, antacids and iron supplements will interfere with the absorption of Levothyroxine, encouraged to take these at a different time of the day. - continue current therapy Lab Results Component Value Date TSH 3.89 11/29/2022 TSH 0.17 (L) 08/19/2022 TSH 69.64 (H) 10/29/2017 Assessment & Plan (09/04/2022 3:37 PM CDT): This is a chronic condition which is not at goal of TSH between 0.3 to 4.2 mclUnits/ml Personally reviewed lab. Lab Results Component Value Date TSH 0.17 (L) 08/19/2022 TSH 69.64 (H) 10/29/2017 TSH 58.72 (H) 03/17/2016 Continue Levothryoxine 175 mcg po daily in am. Will be followed by Dr. Sun for her thyroid disease Discussed the importance of taking Levothryoxine on a empty stomach, which means one hour before eating or two hours after eating. Discussed food in the stomach will interfere with absorption of Levothyroxine. Discussed Calcium, antacids and iron supplements will interfere with the absorption of Levothyroxine, encouraged to take these at a different time of the day. Repeat TSH, T4 in 6 weeks, Recurrent major depressive disorder, in partial remission 08/20/2022 Assessment & Plan (01/10/2024 3:34 PM FINANCIAL SPECIALIST): - chronic condition, not at goal, worse - anxiety - worse - depression - worse - has coexisting depression and anxiety, PTSD (trauma to sister) - depression is well controlled but anxiety is not at goal - currently on Venlafaxine XR 75 mg BID, Ziprasidone 40 mg nightly, Buspar 7.5 mg BID --> increase Buspar to 15 mg BID, add Venlafaxine ER 37.5 in am to Venlafaxine XR 75 mg BID that she is taking, continue ziprasidone 40 mg nightly - struggles with panic attacks 3-4 times a week (feels short of breath, hot, throat tightness, sweating, fidgetign and has hard time falling asleep and staying asleep) ---> better controlled with clonazepam 0.5 mg BID PRN which she has uses <10 a month - has been on Prozac in teenage years, Citalopram, Zoloft, hydroxyzine - continue with current management with changes made above - referral placed to psychiatry, discussed to use resources from [facility] in [place] as well Assessment & Plan (11/06/2023 4:48 PM CDT): - chronic condition - anxiety - better controlled - depression - better controlled - has coexisting depression and anxiety, PTSD (trauma to sister) - depression is well controlled but anxiety is not at goal - currently on Venlafaxine XR 75 mg BID, Ziprasidone 40 mg nightly, Buspar 7.5 mg BID - struggles with panic attacks 3-4 times a week (feels short of breath, hot, throat tightness, sweating, fidgetign and has hard time falling asleep and staying asleep) ---> better controlled with clonazepam 0.5 mg BID PRN which she has uses <10 a month - has been on Prozac in teenage years, Citalopram, Zoloft, hydroxyzine - continue with current management with changes made above Assessment & Plan (08/03/2023 11:01 AM CDT): - chronic condition - anxiety - well controlled - depression - well controlled - has coexisting depression and anxiety, PTSD (trauma to sister) - depression is well controlled but anxiety is not at goal - currently on Venlafaxine XR 75 mg BID and Venlafaxine XR 37.5 mg daily as well ---> stop Venlafaxine XR 37.5 mg daily for now due to parasomnias - currently on Ziprasidone 40 mg nightly, Buspar 7.5 mg BID - has been on Hydroxyzine 25 mg TID PRN for anxiety - struggles with panic attacks 3-4 times a week (feels short of breath, hot, throat tightness, sweating, fidgetign and has hard time falling asleep and staying asleep) ---> better controlled since starting Clonazepam 0.5 mg BID PRn which she has uses <10 a month - has been on Prozac in teenage years, Citalopram, Zoloft, hydroxyzine - continue with current management with changes made above Assessment & Plan (05/03/2023 9:35 AM CDT): - chronic condition - anxiety improved but not at goal - depression - well controlled - has coexisting depression and anxiety, PTSD (trauma to sister) - depression is well controlled but anxiety is not at goal - currently on Venlafaxine XR 75 mg BID and Venlafaxine XR 37.5 mg daily as well - currently on Ziprasidone 40 mg nightly - has been on Hydroxyzine 25 mg TID PRN for anxiety - struggles with panic attacks 3-4 times a week (feels short of breath, hot, throat tightness, sweating, fidgetign and has hard time falling asleep and staying asleep) ---> better controlled since starting Clonazepam 0.5 mg BID PRn which she has uses <10 a month - has been on Prozac in teenage years, Citalopram, Zoloft, hydroxyzine - started Buspar 7.5 mg BID on prior visit for better anxiety management - continue with current management with changes made above Assessment & Plan (12/22/2022 5:17 AM FINANCIAL SPECIALIST): - chronic condition - anxiety improved but not at goal - depression - well controlled - has coexisting depression and anxiety, PTSD (trauma to sister) - depression is well controlled but anxiety is not at goal - currently on Venlafaxine XR 75 mg BID and Venlafaxine XR 37.5 mg daily as well - currently on Ziprasidone 40 mg nightly - has been on Hydroxyzine 25 mg TID PRN for anxiety - struggles with panic attacks 3-4 times a week (feels short of breath, hot, throat tightness, sweating, fidgetign and has hard time falling asleep and staying asleep) ---> better controlled since starting Clonazepam 0.5 mg BID PRn which she has uses <10 a month, refill provided - has been on Prozac in teenage years, Citalopram, Zoloft, hydroxyzine - start Buspar 7.5 mg BID, script sent in for better anxiety management - continue with current management with changes made above Assessment & Plan (12/15/2022 2:01 PM FINANCIAL SPECIALIST): - chronic condition, not at goal - has coexisting depression and anxiety, PTSD (trauma to sister) - depression is well controlled but anxiety is not at goal - currently on Venlafaxine XR 75 mg BID and Venlafaxine XR 37.5 mg daily as well - currently on Ziprasidone 40 mg nightly - has been on Hydroxyzine 25 mg TID PRN for anxiety - struggles with panic attacks 3-4 times a week (feels short of breath, hot, throat tightness, sweating, fidgetign and has hard time falling asleep and staying asleep) - has been on Prozac in teenage years, Citalopram, Zoloft - start Clonazepam 0.5 mg BID PRN only for better control of anxiety - continue with current management with changes made above Urge incontinence 07/28/2021 Resolved Problems Problem Noted Date Diagnosed Date Resolved Date Hyperglycemia due to diabete s mellitus (CMS/HCC) 08/20/2022 09/04/2022 Encounters Date Type Department Care Team Description 03/12/2024 Telephone [facility] Diabetes Endocrine Care at [address] [phone] Caryn Castellon NP 03/12/2024 Orders Only [facility] Diabetes Endocrine Care at [address] [phone] Caryn Castellon NP Acquired hypothyroidism (Primary Dx) 03/11/2024 3:25 PM FINANCIAL SPECIALIST - 03/11/2024 11:59 PM FINANCIAL SPECIALIST Hospital Encounter [address] [address] Type 1 diabetes mellitus with hyperglycemia (HCC) Discharge Disposition: Discharge to home or self care 03/11/2024 3:15 PM FINANCIAL SPECIALIST Lab [facility] Outpatient Lab at [address] [phone] Type I (juvenile type) diabetes mellitus with renal manifestations, 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) (CMS/HCC) (HCC) (Primary Dx) 03/11/2024 2:30 PM FINANCIAL SPECIALIST Office Visit [facility] Diabetes Endocrine [facility] at [address] [place] [address] Caryn Castellon NP Type 1 diabetes mellitus with hyperglycemia (HCC) (Primary Dx); Dyslipidemia due to type 1 diabetes mellitus (HCC); Acquired hypothyroidism; Class 1 obesity due to excess calories with serious comorbidity and body mass index (BMI) of 31.0 to 31.9 in adult; dexcom 7 continuous glucose monitoring device; Omnipod OP [address] 02/28/2024 11:15 AM FINANCIAL SPECIALIST Office Visit [facility] [place] [address] [place] [address] Sultana Barrera NP Dental infection (Primary Dx) 02/18/2024 E-Visit [facility] Primary Care at [address] [phone] Hank Alanis MD Your Medications 01/29/2024 1:30 PM FINANCIAL SPECIALIST Office Visit [facility] Care at [address] [phone] Cecilia Mosquera NP Viral URI with cough (Primary Dx); Sorethroat 01/10/2024 3:00 PM FINANCIAL SPECIALIST Office Visit [facility] Primary Care at [address] [phone] Hank Alanis MD Recurrent major depressive disorder, in partial remission (HCC) (Primary Dx); LUZ (generalized anxiety disorder); Class 1 obesity due to excess calories with serious comorbidity and body mass index (BMI) of 31.0 to 31.9 in adult; Need for influenza vaccination; Rheumatoid arthritis with negative rheumatoid factor, involving unspecified site (HCC) 01/10/2024 Orders Only [facility] Primary Care at [address] [phone] Hank Alanis MD Recurrent major depressive disorder, in partial remission (HCC); LUZ (generalized anxiety disorder); Rheumatoid arthritis with negative rheumatoid factor, involving unspecified site (HCC) from Last 3 Months Immunizations Name Administration Dates Next Due DTP 08/31/1997 DTP / HiB 1996,1996,1996 DTaP 09/10/2000 HPV, Quadrivalent 08/04/2010,03/31/2010,01/21/20 10 Hep B, Adolescent or Pediatric 7,1996,1996,04/29 HiB 08/31/1997 IPV 09/10/2000 Influenza, Quadrivalent, Spl it, Intramuscular 02/13/2020 Influenza, Quadrivalent, Spl it, Preservative Free, Intramuscular 10/24/2012 Influenza, Trivalent, Preser vative Free, Intramuscular 01/10/2024,12/14/2011,01/19/2011,11/23 Influenza, Unspecified 11/06/2023(Deferr ed: Patient Refused),05/03/2023(Deferred: Patient Refused),11/05/2021(Deferred: Patient Refused),12/21/2016 MMR 04/25/2020,09/10/2000,05/06/1997 Meningococcal Conjugate (Menveo) 12/14/2011 OPV 08/31/1997, 7,1996,07/01 Td, Unspecified 08/06/2011 Tdap 03/17/2020,02/13/2020,06/30/2010 Varicella 09/13/2006,08/12/2001 Surgical History Surgery Date Site/Laterality Comments TONSILLECTOMY WRIST SURGERY hematoma removed Medical History Medical History Date Comments Arthritis Asthma Hypothyroid Depression Hyperglycemia due to diabetes mellitus ([facility]) ([facility]) 08/20/2022 Social History Tobacco Use Types Packs/Day Years Used Date Smoking Tobacco: Every Day Vaping Smokeless Tobacco: Former Quit: 11/2019 Tobacco Cessation:Ready to Q uit: Not Asked; Counseling Given: Not Answered Alcohol Use Standard Drinks/Week Comments Not Currently 0 (1 standard drink = 0.6 oz pur e alcohol) occasional Social Connection and Isolat ion Panel [NHANES] Answer Date Recorded In a typical week, how many times do you talk on the phone with family, friends, or neighbors? More than three times a week 08/21/2022 How often do you get togethe r with friends or relatives? More than three times a week 08/21/2022 How often do you attend chur ch or jainism services? Never 08/21/2022 Do you belong to any clubs o r organizations such as mandaen groups, unions, fraternal or athletic groups, or school groups? No 08/21/2022 How often do you attend meet ings of the clubs or organizations you belong to? Never 08/21/2022 Are you , , di vorced, , never , or living with a partner? Never 08/21/2022 AUDIT-C Answer Date Recorded Q1: How often do you have a drink containing alcohol? Never 01/10/2024 Q2: How many drinks containi ng alcohol do you have on a typical day when you are drinking? Patient does not drink Q3: How often do you have si x or more drinks on one occasion? Never 01/10/2024 Overall Financial Resource Strain (CARDIA) Answe r Date Recorded How hard is it for you to pa y for the very basics like food, housing, medical care, and heating? Not hard at all 08/21/2022 PHQ-2 Answer Date Recorded PHQ-2 Total Score (If total score is 3 or more points, staff should administer the PHQ-9) 2 01/10/2024 Hunger Vital Sign Answer Date Recorded Within the past 12 months, y ou worried that your food would run out before you got the money to buy more. Never true 08/22/19 23 Within the past 12 months, t he food you bought just didn't last and you didn't have money to get more. Never true 08/21/2022 PRAPARE - Transportation Answer Date Re corded In the past 12 months, has l ack of transportation kept you from medical appointments or from getting medications? No 08/05 In the past 12 months, has l ack of transportation kept you from meetings, work, or from getting things needed for daily living? No 08/21/2022 Housing Stability Vital Sign Answer Mc e Recorded In the last 12 months, was t here a time when you were not able to pay the mortgage or rent on time? No 08/21/2022 In the last 12 months, how many places have you lived? 1 08/21/2022 In the last 12 months, was t here a time when you did not have a steady place to sleep or slept in a fpc (including now)? No 08/21/2022 Personal Safety Answer Date Recorded Have you ever been in or are you currently in a harmful physical or emotional relationship or is someone making you feel afraid or unsafe? Denies 02/13/2023 Education Answer Date Recorded What is the highest level of school you have completed or the highest degree you have received? Associate degree: academic program 08/21/2022 Comments No Sex and Gender Information Value Date Recorded Sex Assigned at Not on file Legal Sex Female 1:10 AM FINANCIAL SPECIALIST Gender Identity Not on file Sexual Orientation Not on file Obstetrics History Para Term AB IAB SAB Ectopic Multiple Livin g Live Births 2 1 1 1 1 0 1 1 Date Outcome GA Total Labor Labor/2nd/3rd Weight Sex Type Anes PTL Christina A1 A5 Name Clin SAB 2020 Term 39w 4d 1h 36m 0h 18m/1h 11m/0h 07m 3.458 kg (7 lb 10 oz) M Vag-S pont Epidur al N Livin g 8 9 HUNTER ,OLIVIA VIRK Y Damion n, Miles mckinley MD Complications:Precipitous La bor (<3 hours) Delivery Location:[facility] Last Filed Vital Signs Vital Sign Reading Time Taken Comments Blood Pressure 118/72 03/11/2024 2:39 PM FINANCIAL SPECIALIST Pulse 79 02/28/2024 11:07 AM FINANCIAL SPECIALIST Temperature 36.3 C (97.4 F) 02/28/2024 11:07 AM FINANCIAL SPECIALIST Respiratory Rate 18 02/28/2024 11:07 AM FINANCIAL SPECIALIST Oxygen Saturation 99% 02/28/2024 11:07 AM FINANCIAL SPECIALIST Inhaled Oxygen Concentration - - Weight 95.8 kg (211 lb 4.8 oz) 03/11/2024 2:39 P M FINANCIAL SPECIALIST Height 175.3 cm (5' 9 ) 03/11/2024 2:39 PM FINANCIAL SPECIALIST Body Mass Index 31.2 03/11/2024 2:39 PM FINANCIAL SPECIALIST Plan of Treatment Health Maintenance Due Date Last Done Comments Cervical Cancer Screening 1996 Pneumococcal vaccine <65 (1 of 2 - PCV) 2002 Dilated Eye Exam 2006 Foot Exam 09/05/2023 09/04/2022 Covid-19 Vaccine (2023-2 5 season) 2023 10/12/2020, 09/21/2020 Regular Well Visit/Exam 18-64 11/17/2023 11/16/2022 Hemoglobin A1C 09/08/2024 03/11/2024, 10/0 02/2023, 04/09/2023, Additional history exists Depression Screening 01/09/2025 01/10/2024, 11/06/2023, 08/03/2023, Additional history exists Albumin Creatinine Ratio, Urine 03/11/2025 03/11/2024, 11/06/2023, 09/05/2022 Lipid Panel 03/11/2025 03/11/2024, 11/06, 09/05/2022, Additional history exists TSH Level 03/11/2025 03/11/2024, 07/06, 05/03/2023, Additional history exists eGFR 03/11/2025 03/11/2024, 04/06, 02/13/2023, Additional history exists DTaP/Tdap/Td Vaccine (10 - T d or Tdap) 03/17/2030 03/17/2020, 02/13/2020, 08/06/2011, Additional history exists Hepatitis B Screening Completed 1996 , 1996, 1996, Additional history exists Varicella Vaccines Completed 09/13/2006, 08/12/2001 HPV Vaccines Completed 08/04/2010, 03/09, 01/20/2010 Hepatitis C Screening Completed 11/29/2022 Influenza Vaccine Completed 01/10/2024, , 12/21/2016, Additional history exists Procedures Procedure Name Priority Date/Time Associated Diagnosis Comments T3, FREE Routine 03/11/2024 3:25 PM FINANCIAL SPECIALIST EGFR Routine 03/11/2024 3:25 PM FINANCIAL SPECIALIST Type 1 diabetes mellitus with hyperglycemia (HCC) T4, FREE Routine 03/11/2024 3:25 PM FINANCIAL SPECIALIST Type 1 diabetes mellitus with hyperglycemia (HCC) THYROID FUNCTION CASCADE Routine 03/11/2024 3:25 PM FINANCIAL SPECIALIST Type 1 diabetes mellitus with hyperglycemia (HCC) LIPID PANEL Routine 03/11/2024 3:25 PM FINANCIAL SPECIALIST Type 1 diabetes mellitus with hyperglycemia (HCC) COMPREHENSIVE METABOLIC PANEL Routine 03/11/2024 3:25 PM FINANCIAL SPECIALIST Type 1 diabetes mellitus with hyperglycemia (HCC) ALBUMIN CREATININE RATIO, URINE Routine 03/11/2024 3:25 PM FINANCIAL SPECIALIST Type 1 diabetes mellitus with hyperglycemia (HCC) POCT GLUCOSE Routine 03/11/2024 2:44 PM FINANCIAL SPECIALIST Type 1 diabetes mellitus with hyperglycemia (HCC) POCT HEMOGLOBIN A1C Routine 03/11/2024 2 :43 PM FINANCIAL SPECIALIST Type 1 diabetes mellitus with hyperglycemia (HCC) POCT RAPID STREP Routine 01/29/2024 12:3 5 PM FINANCIAL SPECIALIST Sorethroat POC INFLUENZA A/B, COVID-19 ANTIGEN Routine 01/29/2024 12:35 PM FINANCIAL SPECIALIST Sorethroat HEPATITIS C ANTIBODY Routine 11/29/2022 2:02 PM CDT Rheumatoid arthritis involving both hands, unspecified whether rheumatoid factor present (HCC) from Last 3 Months or Most Recently Relevant to Health Maintenance Results * eGFR (03/11/2024 3:25 PM FINANCIAL SPECIALIST) eGFR >90 >=60 mL/min/1. 73 m2 Comment: Interpretive Data Reference Interval Normal >/= 90 mL/min/1.73m2 Mildly decreased* 60 - 89 mL/min/1.73m2 Mildly to moderately decreased 45 - 59 mL/min/1.73m2 Moderately to severely decreased 30 - 44 mL/min/1.73m2 Severely decreased 15 - 29 mL/min/1.73m2 Kidney Failure < 15 mL/min/1.73m2 *Relative to young adult level Estimated glomerular filtration rate is determined by the 2020 CKD-EPI equation recommended by the National Kidney Foundation (A Unifying Approach to GFR Estimation: Recommendations of the NKF-ASK Task Force on Reassessing the Inclusion of Race in Diagnosing Kidney Disease, JASN 2020). The CKD-EPI equation should not be used for patients with unstable renal function and has not been validated in children and those over 70. Current interpretive data was last reviewed 2020. Blood 03/11/2024 3:25 PM FINANCIAL SPECIALIST 03/11/2024 9:15 PM FINANCIAL SPECIALIST Caryn Castellon RN COMPLIANCE LAB BLOOD ORDERABLES Final Resu lt Performing Organization Address City/[facility]/ZIP Co de Phone Number [facility] [id number] [place] [address] * (ABNORMAL) Thyroid Function [place] (03/11/2024 3:25 PM FINANCIAL SPECIALIST) TSH 0.10(L) 0.30 - 4.20 mcIUnit/mL Blood 03/11/2024 3:25 PM FINANCIAL SPECIALIST 03/11/2024 7:07 PM FINANCIAL SPECIALIST Result [facility] Caryn Castellon NP LAB BLOOD ORDERABLES Final Resu Performing Organization Address [facility] Co de Phone Number [facility] [id number] [place] [address] * Albumin Creatinine Ratio, Urine (03/11/2024 3:25 PM FINANCIAL SPECIALIST) Albumin Ur <12.0 mg/L Comment: Interpretive Data No reference range established. Current interpretive data was last revised 2018. Creatinine Ur 62.7 mg/dL RANDAL Comment: Interpretive Data No reference range established. Current interpretive data was last revised 2018. Albumin Creatinine Ratio, Ur <19 1 - 29 mg/g RANDAL Urine 03/11/2024 3:25 PM FINANCIAL SPECIALIST 03/11/2024 7:07 PM FINANCIAL SPECIALIST Caryn Castellon NP LAB URINE ORDERABLES Final Resu lt Performing Organization Address [facility] Co de Phone Number R[facility]AL AM[facility] [id number] [facility] [place] [address] * T3, free (03/11/2024 3:25 PM FINANCIAL SPECIALIST) Free T3 2.6 2.0 - 4.4 pg/mL Blood 03/11/2024 3:25 PM FINANCIAL SPECIALIST 03/11/2024 9:15 PM FINANCIAL SPECIALIST Narrative RANER - 03/11/2024 10:26 PM FINANCIAL SPECIALIST This test was reflexed from a Free T4 result. Caryn Castellon RN COMPLIANCE LAB BLOOD ORDERABLES Final Resu lt Performing Organization Address [facility] Co de Phone Number RANDAL AMARAL [id number] [address] [facility] [place] [address] * T4, free (03/11/2024 3:25 PM FINANCIAL SPECIALIST) Free T4 1.54 0.90 - 1.70 ng/dL Blood 03/11/2024 3:25 PM FINANCIAL SPECIALIST 03/11/2024 9:15 PM FINANCIAL SPECIALIST Caryn Castellon NP LAB BLOOD ORDERABLES Final Resu lt Performing Organization Address [facility] Co de Phone Number RANDAL [id number] [address] [facility] [place] [address] * Lipid panel (03/11/2024 3:25 PM FINANCIAL SPECIALIST) Cholesterol 195 30 - 199 mg/dL Comment: Interpretive Data Ages < or = 19 years Acceptable: <170 mg/dL Borderline high: 170-199 mg/dL High: >or= 200 mg/dL Ages > or = 20 years Desirable: <200 mg/dL Borderline high: 200-239 mg/dL High: >or= 240 mg/dL Literature References: 1. Expert Panel on Integrated Guidelines for Cardiovascular Health and Risk Reduction in Children and Adolescents. Pediatrics 2011;128:S213 2. NCEP Expert Panel. Circulation 2004;110:227 Current Interpretive Data was last revised on 2017. Triglycerides 74 <=149 mg/dL RANDAL Comment: Interpretive Data Ages < or = 9 years Acceptable: <75 mg/dL Borderline high: 75-99 mg/dL High: >or= 100 mg/dL Ages 10 to 20 years Acceptable: <90 mg/dL Borderline high: 90-129 mg/dL High: >or= 130 mg/dL Ages > or = 20 years Desirable: <150 mg/dL Borderline high: 150-199 mg/dL High: 200-499 mg/dL Very high: >or= 499 mg/dL Literature References: 1. Expert Panel on Integrated Guidelines for Cardiovascular Health and Risk Reduction in Children and Adolescents. Pediatrics 2011;128:S213 2. NCEP Expert Panel. Circulation 2004;110:227 Current Interpretive Data was last revised on 2017. HDL 72 >=40 mg/dL RANDAL Comment: Interpretive Data Ages < or = 19 years Acceptable: >45 mg/dL Borderline low: 40-45 mg/dL Low: <40 mg/dL Ages > or = 20 years Desirable: >or= 60 mg/dL Low: <40 mg/dL Literature References: 1. Expert Panel on Integrated Guidelines for Cardiovascular Health and Risk Reduction in Children and Adolescents. Pediatrics 2011;128:S213 2. NCEP Expert Panel. Circulation 2003;110:227 Current Interpretive Data was last revised on 2017. LDL, calculated 110 <=129 mg/dL RANDAL Comment: Interpretive Data Ages < or = 19 years Acceptable: <110 mg/dL Borderline high: 110-129 mg/dL High: >or= 130 mg/dL Ages > or = 20 years Optimal: <100 mg/dL Near optimal: 100-129 mg/dL Borderline high: 130-159 mg/dL High: >160 mg/dL Calculated using the Kiko LDL-C estimating equation. This equation was implemented on 2023. Prior to this date LDL-C was estimated using the Friedewald equation. Literature References: 1. Expert Panel on Integrated Guidelines for Cardiovascular Health and Risk Reduction in Children and Adolescents. Pediatrics 2011;128:S213 2. NCEP Expert Panel. Circulation 2004;110:227 3. Kiko Mitchell et al. JEN Cardiol. 2019June 05;5(5):540548. doi: 10.1001/jamacardio.2020.0013 Current Interpretive Data was last revised on 2023. Non-HDL Cholesterol 123 mg/dL CERNER Comment: Interpretive Data Ages < or = 19 years Acceptable: <120 mg/dL Borderline high: 120-144 mg/dL High: >145 mg/dL Ages > or = 20 years When triglycerides are >200 mg/dL, Non-HDL cholesterol is a secondary target of therapy with treatment goals that are 30 mg/dL greater than the LDL cholesterol target. Literature References: 1. Expert Panel on Integrated Guidelines for Cardiovascular Health and Risk Reduction in Children and Adolescents. Pediatrics 2011;128:S213 2. NCEP Expert Panel. Circulation 2004;110:227 Current Interpretive Data was last revised on 2017. Chol/HDL ratio 3 CERNER Blood 03/11/2024 3:25 PM FINANCIAL SPECIALIST 03/11/2024 7:07 PM FINANCIAL SPECIALIST Narrative CERNER - 03/11/2024 9:38 PM FINANCIAL SPECIALIST These lab test should be done fasting. This means do not eat or drink for at least 12 hours prior to getting your blood drawn. Has the patient been fasting for 8 hours or more?->Yes us Caryn Castellon NP LAB BLOOD ORDERABLES Final Resu lt [facility] [id number] [place] [address] * (ABNORMAL) Comprehensive metabolic panel (03/11/2024 3:25 PM FINANCIAL SPECIALIST) Sodium 135 135 - 145 mmol/L Potassium, pl 4.7 3.3 - 4.9 mmol/L CERNER Chloride 101 97 - 110 mmol/L CERNER CH CO2 26 22 - 32 mmol/L CERNER CH Anion gap 8 2 - 15 mmol/L CERNER CH BUN 12 6 - 25 mg/dL CERNER Creatinine 0.74 0.60 - 1.10 mg/dL CERNER Glucose 260(H) 70 - 199 mg/dL CERNER Comment: Interpretive Data Fasting glucose >/= 126 mg/dl is diagnostic for diabetes. Fasting is defined as no caloric intake for at least 8 hours. Fasting glucose between 100 mg/dl to 125 mg/dl is diagnostic of prediabetes. In a patient with classic symptoms of hyperglycemia or hyperglycemic crisis, a random glucose >/= 200 mg/dl is diagnostic for diabetes. In the absence of unequivocal hyperglycemia, results should be confirmed by repeat testing. The classification and Diagnosis of Diabetes Diabetes Care 2021; 46: S19-S40. Current interpretive data was last revised 2022. Calcium 9.3 8.5 - 10.3 mg/dL CERNER CH Bilirubin, total 0.3 0.1 - 1.2 mg/dL CERNER CH Protein, pl 7.0 6.5 - 8.5 g/dL CERNER CH Albumin 4.2 3.5 - 5.0 g/dL CERNER CH Alk phos 56 40 - 130 Units/L CERNER CH ALT 16 7 - 45 Units/L CERNER CH AST 21 10 - 45 Units/L CERNER CH Blood 03/11/2024 3:25 PM FINANCIAL SPECIALIST 03/11/2024 7:07 PM FINANCIAL SPECIALIST Caryn Castellon NP LAB BLOOD ORDERABLES Final Resu lt RANDAL [id number] [facility] [place], [place] [id number] * POCT glucose (03/11/2024 2:44 PM FINANCIAL SPECIALIST) Glucose Blood, POC 234 mg/dL Blood 03/11/2024 2:44 PM FINANCIAL SPECIALIST Caryn Castellon NP POINT OF CARE TEST ORDERABLES F inal Result * POCT hemoglobin A1c (03/11/2024 2:43 PM FINANCIAL SPECIALIST) Hemoglobin A1C, POC 7.3 4.0 - 5.6 % Blood 03/11/2024 2:43 PM FINANCIAL SPECIALIST Caryn K. Ravinder RN COMPLIANCE POINT OF CARE TEST ORDERABLES F inal Result * POC Influenza A/B, COVID-19 antigen (01/29/2024 12:35 PM FINANCIAL SPECIALIST) Pathologist [facility] Influenza A Ag, POC Negative Negative [facility] Influenza B Ag, POC Negative Negative [facility] COVID-19 Ag POC Presumptive Negative Presumptive Negative, Invalid [facility] Nasal 01/29/2024 12:3 5 PM FINANCIAL SPECIALIST Result [facility] Cecilia Mosquera RN COMPLIANCE POINT OF CARE TEST OR DERABLES Final Result [address] [id number] * POCT rapid strep A (01/29/2024 12:35 PM FINANCIAL SPECIALIST) Pathologist [facility] Rapid Strep A, POC Negative Negative Swab 01/29/2024 12:3 5 PM FINANCIAL SPECIALIST Result [facility] Cecilia Mosquera RN COMPLIANCE POINT OF CARE TEST OR DERABLES Final Result * Hepatitis C antibody Blood (11/29/2022 2:02 PM CDT) Pathologist [facility] Hep C Ab Nonreactive Nonreactive RANDAL DUENAS (KEVIN) Comment: Interpretive Data Nonreactive: Antibodies to HCV not detected. Does NOT exclude the possibility of recent exposure to HCV. Equivocal: Equivocal for HCV antibodies. Supplemental molecular testing will be automatically performed to determine infection status in accordance with current CDC screening recommendations. Reactive: Positive for HCV antibodies. This may represent current or past HCV infection. Supplemental molecular testing will be automatically performed to determine current infection status in accordance with current CDC screening recommendations. Interpretive data was last revised on 2019. Testing performed by: [facility], [address] [place] [address], [place]., [address] Blood 11/29/2022 2:02 PM CDT 11/29/2022 7:16 PM CDT Hank Alanis MD LAB MICROBIOLOGY - GENE RAL ORDERABLES Final Result [facility] [address] [facility] [place] [address] from Last 3 Months or Most Recently Relevant to Health Maintenance Insurance [facility] Advance Directives For more information, please contact: [phone] * Full Code (Latest Code Status on File) Date Activated Date Inactivated Comments 08/20/2022 2:20 AM 08/22/2022 5:42 PM * Full Code Date Activated Date Inactivated Comments 04/24/2020 11:43 AM 04/25/2020 11:38 PM * Full Code Date Activated Date Inactivated Comments 04/23/2020 5:48 AM 04/24/2020 11:43 AM Full CPR in case of cardiopulmonary arrest Care Teams Forder Operator Relationship Specialty Start Date End Date Hank Alanis MD [address] [place] [address] DR MYNOR Patel [facility] [address] [place] [address] PCP - General Family Medicine 11/16/22 Miles Duckworth MD [address] [place] [address] DR MYNOR Del Real [facility] [address] [place] [address] Toll Gate Keeper Obstetrics and Gynecology 04/25/20 Caryn Castellon, RN COMPLIANCE [address] [place] [address] DR MYNOR Patel [facility] [address] [place] [address] Nurse Practitioner Endocrinology Diabetes & Metabolism 11/24/22
--- OUTSIDE RECORDS SUMMARY | 2024-03-17 14:31 | XMS_ITS | Referral Summary ---
Author Organization [facility] Address [address] [place] [address] Care Team Providers Care Low Altitude Air Defense Gunner Name Role Phone Miles Duckworth MD Unavailable [phone] Hank Alanis MD Primary Care Provider Caryn Castellon CRYOGENICS ENGINEER Unavailable [phone] Encounters Date Type Department Care Team Description 03/12/2024 Telephone [facility] Diabetes Endocrine Care at [address] [address] Caryn Castellon NP 03/12/2024 Orders Only [facility] Diabetes Endocrine Care at [address] [address] Caryn Castellon, JAEL Acquired hypothyroidism (Primary Dx) 03/11/2024 3:25 PM RISK PREVENTION ENGINEER - 03/11/2024 11:59 PM RISK PREVENTION ENGINE[place] [address] Type 1 diabetes mellitus with hyperglycemia (HCC) Discharge Disposition: Discharge to home or self care 03/11/2024 3:15 PM RISK PREVENTION ENGINEER Lab [facility] Outpatient Lab at [address] [place] [phone] Type I (juvenile type) diabetes mellitus with renal manifestations, 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) (CMS/HCC) (HCC) (Primary Dx) 03/11/2024 2:30 PM RISK PREVENTION ENGINEER Office Visit [facility] Diabetes Endocrine Care at [address] [place] [address] Caryn Castellon NP Type 1 diabetes mellitus with hyperglycemia (HCC) (Primary Dx); Dyslipidemia due to type 1 diabetes mellitus (HCC); Acquired hypothyroidism; Class 1 obesity due to excess calories with serious comorbidity and body mass index (BMI) of 31.0 to 31.9 in adult; dexcom 7 continuous glucose monitoring device; Omnipod OP [address] 02/28/2024 11:15 AM RISK PREVENTION ENGINEER Office Visit [facility] [place] [address] [place] [address] Sultana Barrera NP Dental infection (Primary Dx) 02/18/2024 E-Visit [facility] Primary Care at [address] [phone] Hank Alanis MD Your Medications 01/29/2024 1:30 PM RISK PREVENTION ENGINEER Office Visit [facility] Care at [address] [address] Cecilia Mosquera NP Viral URI with cough (Primary Dx); Sorethroat 01/10/2024 Orders Only [facility] Primary Care at [address] [phone] Hank Alanis MD Recurrent major depressive disorder, in partial remission (HCC); LUZ (generalized anxiety disorder); Rheumatoid arthritis with negative rheumatoid factor, involving unspecified site (HCC) 01/10/2024 3:00 PM RISK PREVENTION ENGINEER Office Visit [facility] Primary Care at [address] [address] Hank Alanis MD Recurrent major depressive disorder, in partial remission (HCC) (Primary Dx); LUZ (generalized anxiety disorder); Class 1 obesity due to excess calories with serious comorbidity and body mass index (BMI) of 31.0 to 31.9 in adult; Need for influenza vaccination; Rheumatoid arthritis with negative rheumatoid factor, involving unspecified site (HCC) from Last 3 Months Allergies Active Allergy Reactions Criticality Noted Date Comments Adalimumab Hives Medium Cefprozil Hives Medium Cefuroxime Hives Medium Cephalosporins Hives Medium Etanercept Hives Medium Naproxen Hives Medium Medications alcohol swabs (Alcohol Wipes) pads, medicated Use as directed to clean skin prior to insulin injection and finger sticks. E10.65 400 each 11 023 Active glucagon (Gvoke HypoPen 2-Pack) 1 [...] before meals and nightly E10.65 400 each 3 023 Active pen needle, diabetic 32 gauge x 5/32 needle Use as directed 4 times a day. E10.65 400 each 3 023 Active Additional Information Patient not [...] omnipod 5 G6 intro kit- (Gen 5) [facility] # [id number] e11.9 1 each 024 Active insulin lispro (HumaLOG) 100 unit/mL vial for injection Fill omnipod with humalog insulin. Total daily dose of insulin 90 units 90 mL 3 024 Active Sprintec, 28, 0.25-35 mg-mcg per tablet 024 Active venlafaxine XR (EFFEXOR-XR) 75 mg 24 hr capsuleIndication s:LUZ (generalized anxiety disorder),Recurre nt major depressive disorder, in partial remission (HCC) Take 1 capsule (75 mg total) by mouth 2 (two) times a day 180 capsule 1 024 Active ziprasidone (GEODON) 40 mg capsule Take 1 capsule (40 mg total) by mouth nightly 100 capsule 1 024 Active acetone, urine, test strip Test first AM urine and as directed 100 strip 11 Active Additional Information Patient not taking.Reported on [...] mouth/dental pain) 210 mL 025 Active insulin chemist water purification cart,aut,G6/7,cnt r (Omnipod 5 G6-G7 Intro Kt,Gen5,) [...] the skin continuously E10.65 30 each 4 Active OneTouch Verio Reflect Meter [facility] [place] 023 2024 Discontinued(T herapy completed) blood-glucose transmitter (Dexcom G6 Transmitter) deviceIndications :Type 1 diabetes mellitus with hyperglycemia (HCC) 1 Device continuously Use to monitor blood sugar continuously, change every 90 days e11.65 1 each 3 024 2024 Discontinued(T herapy completed) blood-glucose sensor (Dexcom G6 Sensor) deviceIndications :Type 1 diabetes mellitus with hyperglycemia (HCC) 1 Device continuously Use to check glucose level continuously; change every 10 days. E11.65 10 each 3 024 2024 Discontinued(T herapy completed) senna-docusate (PERICOLACE) 8.6-50 mgIndications:con stipation Take 1 tablet by mouth daily 90 tablet 3 024 2024 Discontinued(T herapy completed) insulin pump cart,automated,BT (Omnipod 5 G6 Pods, Gen 5,) cartridgeIndicati ons:Type 1 diabetes mellitus with hyperglycemia (HCC) Please provide 3 boxes (15 pods) omnipod 5 G6 Pod (Gen 5) [facility] # [id number] Change omnipod every 48-72 hrs. Total daily [...] 03/11/2024 Assessment & Plan (03/11/2024 4:19 PM RISK PREVENTION ENGINEER): This is a chronic condition which is [...] 04/09/2023 Assessment & Plan (01/10/2024 3:13 PM RISK PREVENTION ENGINEER): Wt Readings from Last 3 Encounters: 01/10/24 [...] weekly) Assessment & Plan (04/09/2023 12:08 PM RISK PREVENTION ENGINEER): This is a chronic condition which continues 3 lb weight loss since last office visit Encouraged healthy eating and exercise dexcom 7 continuous glucose monitoring device Assessment & Plan (03/11/2024 4:16 PM RISK PREVENTION ENGINEER): Continuous glucose monitor (cgm) applied from 02/27/2024 to 03/11/2024 This device was placed for monitor and treatment of blood sugar. Interpretation of data- average glucose 171, 59% time in range, 0 hypoglycemia, 41% hyperglycemia. Assessment & Plan (04/09/2023 12:10 PM RISK PREVENTION ENGINEER): Continuous glucose monitor (cgm) applied from 03/12/2023 [...] 12/15/2022 Assessment & Plan (01/10/2024 3:34 PM RISK PREVENTION ENGINEER): - chronic condition, not at goal, worse [...] to psychiatry, discussed to use resources from [facility] in [place] as well Assessment & Plan (11/06/2023 4:48 [...] above Assessment & Plan (12/22/2022 5:17 AM RISK PREVENTION ENGINEER): - chronic condition - anxiety improved but [...] above Assessment & Plan (12/15/2022 2:02 PM RISK PREVENTION ENGINEER): - chronic condition, not at goal - [...] 01/2023 Assessment & Plan (04/09/2023 12:07 PM RISK PREVENTION ENGINEER): This is a chronic condition which is not at goal of LDL less than 70 Continue rosuvastatin Encouraged to eat healthy, include fresh fruits and vegetables daily and avoid eating fried foods more than once per week. Encouraged to take medications as prescribed. Assessment & Plan (12/15/2022 2:05 PM RISK PREVENTION ENGINEER): - recent diagnosis, better controlled - in [...] 11/16/2022 Assessment & Plan (12/15/2022 2:04 PM RISK PREVENTION ENGINEER): - New or chronic worsening conditions: anxiety [...] 08/22/2022 Assessment & Plan (02/04/2024 12:01 AM RISK PREVENTION ENGINEER): - chronic, unknown status - reports diagnosed in childhood at age 6 - used to be on medications for this, used to be seen at [facility] - not on any medications at this time - History of Rheumatoid arthritis involving both hands, unspecified whether rheumatoid factor present - obtained lab work - RA factor was negative on lab work, negative inflammatory markers noted in past - Referral placed to rheumatology again for further workup as prior referral did not go through, new referral placed to Dr. Garcia in [place], [place] placed XR Right hand 11/27 IMPRESSION: [...] used to be seen at [facility] - not on any medications at [...] recommended. Assessment & Plan (12/22/2022 5:18 AM RISK PREVENTION ENGINEER): - chronic, reprots diagnosed in childhood at age 6 - used to be on medications for this, used to be seen at [facility] - not on any medications at [...] recommended. Assessment & Plan (12/15/2022 2:04 PM RISK PREVENTION ENGINEER): - chronic, reprots diagnosed in childhood at age 6 - used to be on medications for this, used to be seen at [facility] - not on any medications at [...] 08/05 Assessment & Plan (04/09/2023 12:04 PM RISK PREVENTION ENGINEER): This is a chronic condition which is [...] 5 Monitor blood sugar continuously with dexcom /7sensor. Encouraged annual eye exam. Monofilament foot exam [...] 08/19/2022 Assessment & Plan (04/09/2023 12:08 PM RISK PREVENTION ENGINEER): This is a chronic condition which is at goal of TSH between 0.3 to 4.2 Noamits/ml Personally reviewed lab. Lab Results Component Value [...] day. Assessment & Plan (12/15/2022 2:06 PM RISK PREVENTION ENGINEER): - chronic, better controlled - diagnosed in [...] 08/20/2022 Assessment & Plan (01/10/2024 3:34 PM RISK PREVENTION ENGINEER): - chronic condition, not at goal, worse [...] to psychiatry, discussed to use resources from [facility] in [place] as well Assessment & Plan (11/06/2023 4:48 [...] above Assessment & Plan (12/22/2022 5:17 AM RISK PREVENTION ENGINEER): - chronic condition - anxiety improved but [...] above Assessment & Plan (12/15/2022 2:01 PM RISK PREVENTION ENGINEER): - chronic condition, not at goal - [...] Date Hyperglycemia due to diabete s mellitus ([facility]) 08/20/2022 09/04/2022 Immunizations Name Administration Dates Next Due DTP [...] Td, Unspecified 08/06/2011 Tdap 03/17/2020,02/13/2020,06/30/2010 Varicella 09/13/2006,08/12/2001 Social History Tobacco Use Types Packs/Day Years [...] week 08/21/2022 How often do you attend [facility] or orthodox services? Never 08/21/2022 Do you belong to any clubs o r organizations such as religious groups, unions, fraternal or athletic groups, or [...] place to sleep or slept in a mcc (including now)? No 08/21/2022 Personal Safety Answer [...] on file Legal Sex Female 1:10 AM RISK PREVENTION ENGINEER Gender Identity Not on file Sexual Orientation Not on file Last Filed Vital Signs Vital Sign Reading Time Taken Comments Blood Pressure 118/72 03/11/2024 2:39 PM RISK PREVENTION ENGINEER Pulse 79 02/28/2024 11:07 AM RISK PREVENTION ENGINEER Temperature 36.3 C (97.4 F) 02/28/2024 11:07 AM RISK PREVENTION ENGINEER Respiratory Rate 18 02/28/2024 11:07 AM RISK PREVENTION ENGINEER Oxygen Saturation 99% 02/28/2024 11:07 AM RISK PREVENTION ENGINEER Inhaled Oxygen Concentration - - Weight 95.8 kg (211 lb 4.8 oz) 03/11/2024 2:39 P M RISK PREVENTION ENGINEER Height 175.3 cm (5' 9 ) 03/11/2024 2:39 PM RISK PREVENTION ENGINEER Body Mass Index 31.2 03/11/2024 2:39 PM RISK PREVENTION ENGINEER Plan of Treatment Not on file Procedures Procedure Name Priority Date/Time Associated Diagnosis Comments T3, FREE Routine 03/11/2024 3:25 PM RISK PREVENTION ENGINEER EGFR Routine 03/11/2024 3:25 PM RISK PREVENTION ENGINEER Type 1 diabetes mellitus with hyperglycemia (HCC) T4, FREE Routine 03/11/2024 3:25 PM RISK PREVENTION ENGINEER Type 1 diabetes mellitus with hyperglycemia (HCC) THYROID FUNCTION CASCADE Routine 03/11/2024 3:25 PM RISK PREVENTION ENGINEER Type 1 diabetes mellitus with hyperglycemia (HCC) LIPID PANEL Routine 03/11/2024 3:25 PM RISK PREVENTION ENGINEER Type 1 diabetes mellitus with hyperglycemia (HCC) COMPREHENSIVE METABOLIC PANEL Routine 03/11/2024 3:25 PM RISK PREVENTION ENGINEER Type 1 diabetes mellitus with hyperglycemia (HCC) ALBUMIN CREATININE RATIO, URINE Routine 03/11/2024 3:25 PM RISK PREVENTION ENGINEER Type 1 diabetes mellitus with hyperglycemia (HCC) POCT GLUCOSE Routine 03/11/2024 2:44 PM RISK PREVENTION ENGINEER Type 1 diabetes mellitus with hyperglycemia (HCC) POCT HEMOGLOBIN A1C Routine 03/11/2024 2 :43 PM RISK PREVENTION ENGINEER Type 1 diabetes mellitus with hyperglycemia (HCC) POCT RAPID STREP Routine 01/29/2024 12:3 5 PM RISK PREVENTION ENGINEER Sorethroat POC INFLUENZA A/B, COVID-19 ANTIGEN Routine 01/29/2024 12:35 PM RISK PREVENTION ENGINEER Sorethroat HEPATITIS C ANTIBODY Routine 11/29/2022 2:02 PM CDT Rheumatoid arthritis involving both hands, unspecified whether rheumatoid factor present (HCC) from Last 3 Months or Most Recently Relevant to Health Maintenance Results * eGFR (03/11/2024 3:25 PM RISK PREVENTION ENGINEER) eGFR >90 >=60 mL/min/1. 73 m2 Comment: [...] last reviewed 2020. Blood 03/11/2024 3:25 PM RISK PREVENTION ENGINEER 03/11/2024 9:15 PM RISK PREVENTION ENGINEER Caryn Castellon CRYOGENICS ENGINEER LAB BLOOD ORDERABLES Final Resu lt Performing Organization Address [facility] Co de Phone Number RANDAL AMARAL [address] [address] [facility] [place] [address] * (ABNORMAL) Thyroid Function [place] (03/11/2024 3:25 PM RISK PREVENTION ENGINEER) TSH 0.10(L) 0.30 - 4.20 mcIUnit/mL Blood 03/11/2024 3:25 PM RISK PREVENTION ENGINEER 03/11/2024 7:07 PM RISK PREVENTION ENGINEER Caryn Castellon CRYOGENICS ENGINEER LAB BLOOD ORDERABLES Final Resu lt Performing Organization Address [facility] de Phone Number RANDAL AMARAL [address] [address] [facility] [place] [address] * Albumin Creatinine Ratio, Urine (03/11/2024 3:25 PM RISK PREVENTION ENGINEER) Albumin Ur <12.0 mg/L Comment: Interpretive Data No reference range established. Current interpretive data was last revised 2018. Creatinine Ur 62.7 mg/dL [facility] Comment: Interpretive Data No reference range established. Current interpretive data was last revised 2018. Albumin Creatinine Ratio, Ur <19 1 - 29 mg/g RANDAL Urine 03/11/2024 3:25 PM RISK PREVENTION ENGINEER 03/11/2024 7:07 PM RISK PREVENTION ENGINEER Caryn Castellon CRYOGENICS ENGINEER LAB URINE ORDERABLES Final Resu lt Performing Organization Address [facility] Co de Phone Number RANDAL AMARAL [address] [address] [facility] [place] [address] * T3, free (03/11/2024 3:25 PM RISK PREVENTION ENGINEER) Free T3 2.6 2.0 - 4.4 pg/mL Blood 03/11/2024 3:25 PM RISK PREVENTION ENGINEER 03/11/2024 9:15 PM RISK PREVENTION ENGINEER Narrative RANDAL - 03/11/2024 10:26 PM RISK PREVENTION ENGINEER This test was reflexed from a Free T4 result. Cayrn Castellon CRYOGENICS ENGINEER LAB BLOOD ORDERABLES Final Resu lt Performing Organization Address [facility] Co de Phone Number RANDAL AMARAL [phone] [address] [facility] [place] [address] * T4, free (03/11/2024 3:25 PM RISK PREVENTION ENGINEER) Free T4 1.54 0.90 - 1.70 ng/dL Blood 03/11/2024 3:25 PM RISK PREVENTION ENGINEER 03/11/2024 9:15 PM RISK PREVENTION ENGINEER Caryn Castellon NP LAB BLOOD ORDERABLES Final Resu lt Performing Organization Address [facility] de Phone Number [facility] [address] [place] [address] * Lipid panel (03/11/2024 3:25 PM RISK PREVENTION ENGINEER) Cholesterol 195 30 - 199 mg/dL Comment: [...] revised on 2017. Triglycerides 74 <=149 mg/dL [facility] Comment: Interpretive Data Ages < or = [...] on 2017. HDL 72 >=40 mg/dL RANDAL AMARAL Comment: Interpretive Data Ages < or = [...] 2017. LDL, calculated 110 <=129 mg/dL RANDAL AMARAL Comment: Interpretive Data Ages < or = [...] NCEP Expert Panel. Circulation 2004;110:227 3. Kiko Burris al. JEN Cardiol. 2020 June 05;5(5):540-548. doi: 10.1001/jamacardio.2020.0013 Current Interpretive Data was last revised on 2023. Non-HDL Cholesterol 123 mg/dL RANDAL AMARAL Comment: Interpretive Data Ages < or = [...] revised on 2017. Chol/HDL ratio 3 [facility] CH Blood 03/11/2024 3:25 PM RISK PREVENTION ENGINEER 03/11/2024 7:07 PM RISK PREVENTION ENGINEER Narrative [facility]ER CH - 03/11/2024 9:38 PM RISK PREVENTION ENGINEER These lab test should be done fasting. This means do not eat or drink for at least 12 hours prior to getting your blood drawn. Has the patient been fasting for 8 hours or more?->Yes us Caryn Castellon NP LAB BLOOD ORDERABLES Final Resu lt RANDAL [address] [place] [address] * (ABNORMAL) Comprehensive metabolic panel (03/11/2024 3:25 PM RISK PREVENTION ENGINEER) Sodium 135 135 - 145 mmol/L Potassium, [...] Calcium 9.3 8.5 - 10.3 mg/dL CERNER Bilirubin, total 0.3 0.1 - 1.2 mg/dL [facility] Protein, pl 7.0 6.5 - 8.5 g/dL [facility] Albumin 4.2 3.5 - 5.0 g/dL [facility] Alk phos 56 40 - 130 Units/L [facility] ALT 16 7 - 45 Units/L [facility] AST 21 10 - 45 Units/L [facility] Blood 03/11/2024 3:25 PM RISK PREVENTION ENGINEER 03/11/2024 7:07 PM RISK PREVENTION ENGINEER Caryn Castellon CRYOGENICS ENGINEER LAB BLOOD ORDERABLES Final Resu lt [facility] [address] [place] [address] * POCT glucose (03/11/2024 2:44 PM RISK PREVENTION ENGINEER) Glucose Blood, POC 234 mg/dL Blood 03/11/2024 2:44 PM RISK PREVENTION ENGINEER Caryn Castellon CRYOGENICS ENGINEER POINT OF CARE TEST ORDERABLES F inal Result * POCT hemoglobin A1c (03/11/2024 2:43 PM RISK PREVENTION ENGINEER) Hemoglobin A1C, POC 7.3 4.0 - 5.6 % Blood 03/11/2024 2:43 PM RISK PREVENTION ENGINEER Caryn Castellon CRYOGENICS ENGINEER POINT OF CARE TEST ORDERABLES F inal Result * POC Influenza A/B, COVID-19 antigen (01/29/2024 12:35 PM RISK PREVENTION ENGINEER) Influenza A Ag, POC Negative Negative [facility] Influenza B Ag, POC Negative Negative [facility] COVID-19 Ag POC Presumptive Negative Presumptive Negative, Invalid [facility] [place] Nasal 01/29/2024 12:3 5 PM RISK PREVENTION ENGINEER Cecilia Mosquera CRYOGENICS ENGINEER POINT OF CARE TEST OR DERABLES Final Result Performing Organization Address [facility]/ZIP Co de Phone Number [facility] [address] [phone] * POCT rapid strep A (01/29/2024 12:35 PM RISK PREVENTION ENGINEER) Rapid Strep A, POC Negative Negative Swab 01/29/2024 12:3 5 PM RISK PREVENTION ENGINEER Cecilia Cori Eveline CRYOGENICS ENGINEER POINT OF CARE TEST OR DERABLES Final Result * Hepatitis C antibody Blood (11/29/2022 2:02 PM CDT) Hep C Ab Nonreactive Nonreactive RANDAL DUENAS [...] last revised on 2019. Testing performed by: [facility], [address] [place] [address]., [address] Blood 11/29/2022 2:02 PM CDT 11/29/2022 7:16 PM CDT Hank Alanis MD LAB MICROBIOLOGY - GENE RAL ORDERABLES Final Result RANDAL DUENAS ([place]) [address] [facility] [place] [address] from Last 3 Months or Most Recently Relevant to Health Maintenance Insurance Advance Directives For more information, please contact: [phone] * Full Code (Latest Code Status on File) Date Activated Date Inactivated Comments 08/20/2022 2:20 AM 08/22/2022 5:42 PM * Full Code Date Activated Date Inactivated Comments 04/24/2020 11:43 AM 04/25/2020 11:38 PM * Full Code Date Activated Date Inactivated Comments 04/23/2020 5:48 AM 04/24/2020 11:43 AM Full CPR in case of cardiopulmonary arrest Care Teams Low Altitude Air Defense Gunner Relationship Specialty Start Date End Date Hank Alanis MD [address] [place] Patel [facility] [address] [place] [address] PCP - General Family Medicine 11/16/22 Miles Duckworth MD [address] [place] Del Real [facility] [address] [place] [address] Autopsy Pathologist Obstetrics and Gynecology 04/25/20 Caryn Castellon, CRYOGENICS ENGINEER [address] [place] Patel [facility] [address] [place] [address] Nurse Practitioner Endocrinology Diabetes & Metabolism 11/24/22
--- OUTSIDE RECORDS SUMMARY | 2024-03-17 14:31 | XMS_ITS | Referral Summary ---
Author Organization [facility] Address [address] [place] [address] Care Team Providers Care Bias Binding Cutter Name Role Phone Corky Tejada MD Primary Care Provider [phone] Source Comments [facility],non-owned Affiliates and Associated Physician Practices is amultiple site organization consisting of ambulatory clinics and hospital sitesin [place], [place], [place] and [place]. This disclosure is being madepursuant to the Care Everywhere program and may not contain all information available regarding this patient. Last updated 17.[facility] Allergies Active Allergy Reactions Criticality Noted Date Comments Adalimumab Urticaria Medium 03/27/2018 Ceftin Urticaria 05/27/2009 Cefzil Urticaria 05/27/2009 Cephalosporins Rash Low 10/30/2013 Enbrel Shortness of Breath 05/27/2009 Naproxen 10/19/2011 Prednisone Urticaria Medium 03/27/2018 Medications * Be aware that medications may not be up to date on this document. Alwaysverify current medications with the patient. 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 Overview (08/19/2009): Current outpatient prescriptions: (Adverse reaction to Enbrel) folic acid (FOLVITE) DICLOFENAC SODIUM PO METHOTREXATE PO VALTREX PO albuterol HFA (VENTOLIN HFA) montelukast (SINGULAIR) Levothyroxine Loratadine Tylenol PRN Thyroiditis, autoimmune 05/27/2009 Overview (08/19/2009): Noted May 2009, on levothyroxine since that time Assessment & Plan (10/31/2013 8:13 AM CDT): 1) continue current levothyroxine dose 2) may take your dose at any time of the day so long as you take it 3) obtain pill box that mother will fill weekly 4) recheck thyroid function in 6 weeks 5) return in [address] Barr Social History Tobacco Use Types Packs/Day Years Used Date Smoking Tobacco: Never Tobacco Cessation:Counseling Given: Not Answered Alcohol Use Standard Drinks/Week Comments Yes 0 (1 standard drink = 0.6 oz pur e alcohol) rare Sex and Gender Information Value Date Recorded Sex Assigned at Not on file Gender Identity Not on file Sexual Orientation Not on file Last Filed Vital Signs Vital Sign Reading Time Taken Comments Blood Pressure 130/72 01/26/2022 10:48 AM CARROT GRADER INSPECTOR Pulse 92 08/07/2016 8:55 AM CDT Temperature 35.9 C (96.7 F) 01/26/2022 10:48 AM CARROT GRADER INSPECTOR Respiratory Rate 14 10/29/2013 3:30 PM CDT Oxygen Saturation - - Inhaled Oxygen Concentration - - Weight 119.7 kg (264 lb) 01/26/2022 10:48 AM CARROT GRADER INSPECTOR Height 175.3 cm (5' 9 ) 01/26/2022 10:48 AM CARROT GRADER INSPECTOR Body Mass Index 38.99 01/26/2022 10:48 AM CARROT GRADER INSPECTOR Plan of Treatment Not on file Care Teams Bias Binding Cutter Relationship Specialty Start Date End Date Corky Tejada MD PCP - General 09/04/17
--- OUTSIDE RECORDS SUMMARY | 2024-03-17 14:31 | XMS_ITS | Encounter Summary ---
Author Organization [facility] Address [address] [place] [address] Care Team Providers Care Signal Integrity Engineer Name Role Phone Sweta Grimm DO Primary Care Provider + Corky Tejada MD Primary Care Provider [phone] Reason for Visit * Reason Onset Date Comments Refill Request 04/27/2014 Mom had to sayda edule f/u appointment and needs refill of levothyroxine till then. Please call into [employer] [phone] Encounter Details Date Type Department Care Team (Late st Contact Info) Description 04/27/2014 Telephone [facility] - Endocrinology [address] [place] [id number] Micah Barr MD [address] [place] [id number] Refill Request (Mom had to reschedule f/u appointment and needs refill of levothyroxine till then. Please call into [employer] [phone]) Social History Tobacco Use Types Packs/Day Years Used Date Smoking Tobacco: Never Alcohol Use Standard Drinks/Week Comments Not Asked 0 (1 standard drink = 0.6 oz pur e alcohol) Sex and Gender Information Value Date Recorded Sex Assigned at Not on file Gender Identity Not on file Sexual Orientation Not on file documented as of this encounter Plan of Treatment Not on file documented as of this encounter Visit Diagnoses Diagnosis Thyroiditis, autoimmune- Primary Chronic lymphocytic thyroiditis documented in this encounter Care Teams Signal Integrity Engineer Relationship Specialty Start Date End Date Sweta Grimm DO [address] [facility] [place] [phone] PCP - General Pediatrics 03/19/12 09/03/17 Corky Tejada MD [address] [facility] [place] [phone] PCP - General 09/04/17 documented as of this encounter
--- OUTSIDE RECORDS SUMMARY | 2024-03-17 14:31 | XMS_ITS | Clinical Summary ---
Author Organization [facility] Address [address] [place] [address] Care Team Providers Care Line Prep Cook Name Role Phone Corky Tejada MD Primary Care Provider [phone] Source Comments [facility],non-owned Affiliates and Associated Physician Practices is amultiple site organization consisting of ambulatory clinics and hospital sitesin [place], [place], [place] and [place]. This disclosure is being madepursuant to the Care Everywhere program and may not contain all information available regarding this patient. Last updated 17.[facility] Allergies Active Allergy Reactions Criticality Noted Date [...] Comments Blood Pressure 130/72 01/26/2022 10:48 AM NEUROLOGIST Pulse 92 08/07/2016 8:55 AM CDT Temperature 35.9 C (96.7 F) 01/26/2022 10:48 AM NEUROLOGIST Respiratory Rate 14 10/29/2013 3:30 PM CDT Oxygen Saturation - - Inhaled Oxygen Concentration - - Weight 119.7 kg (264 lb) 01/26/2022 10:48 AM NEUROLOGIST Height 175.3 cm (5' 9 ) 01/26/2022 10:48 AM NEUROLOGIST Body Mass Index 38.99 01/26/2022 10:48 AM NEUROLOGIST Plan of Treatment Health Maintenance Due Date Last Done Comments PAP SMEAR 1996 HIV SCREENING 04/30/2011 HEPATITIS C SCREENING 04/25/2014 DTAP/TDAP/TD VACCINES (1 - Tdap) 04/30/2015 HEPATITIS B VACCINE (1 of 3 - 19+ 3-dose series) 04/30/2015 COVID-19 VACCINE (3 2023- season) 2023 10/12/2020, 09/21/2020 INFLUENZA VACCINE (#1) 2023 3, 12/14/2011, 01/19/2011, Additional history exists DEPRESSION SCREENING 02/06/2024 ZOSTER VACCINE (1 of 2) 2046 HIB VACCINE Aged Out No longer eligi ble based on patient's age to complete this topic HPV VACCINE Aged Out No longer eligi ble based on patient's age to complete this topic MENINGOCOCCAL (Group B) VACCINE Aged Out No longer eligible based on patient's age to complete this topic MENINGOCOCCAL VACCINE Aged Out No becky waldemar eligible based on patient's age to complete this topic PNEUMOCOCCAL VACCINE Aged Out No long er eligible based on patient's age to complete this topic Care Teams Line Prep Cook Relationship Specialty Start Date End Date Corky Tejada MD [facility] - General 09/04/17
--- OUTSIDE RECORDS SUMMARY | 2024-03-17 14:32 | XMS_ITS | Clinical Summary ---
Author Organization [facility] Address [address] [place] [address] Phone Care Team Providers Care Instructor Physical Name Role Phone Halima Qureshi MD Unavailable Unavail able Rhianna Diaz MD Unavailable [phone] Taiwo Glez MD Primary Care Provider Allergies Active Allergy Reactions Criticality Noted Date Comments Cefprozil Hives 07/10/2016 Cefuroxime Hives 07/10/2016 Cephalosporins Hives 05/28/2015 Etanercept Shortness of Breath 07/10/2016 Adalimumab Hives 03/27/2018 Naproxen Hives 07/10/2016 Prednisone Hives 03/27/2018 Medications FLUoxetine (PROZAC) 40 MG Capsule Take 40 mg by mouth daily. Active MONONESSA 0.25-35 MG-MCG Tablet TK 1 T PO QD 14 7 Active hydrOXYzine (VISTARIL) 25 MG Capsule Take 25 mg by mouth 3 times daily as needed for Itching. Active citalopram (CELEXA) 20 MG Tablet Take 40 mg by mouth daily. 8 Active ClonazePAM (KLONOPIN PO) Take by mouth. A ctive ARIPiprazole (ABILIFY PO) Take by mouth. Ac tive predniSONE (DELTASONE) 20 MG Tablet Use as directed. 15 Tab 8 Active Additional Information Patient not taking.Reported on 03/27/2018 albuterol 108 (90 Base) MCG/ACT Aerosol Solution take 2 Puffs by inhalation every 6 hours as needed for Wheezing or Cough. 1 Inhaler 8 Active Additional Information Patient not taking.Reported on 07/28/2019 levothyroxine (SYNTHROID) 100 MCG TabletIndication s:Hypothyroidism due to acquired atrophy of thyroid TAKE 1 TABLET BY MOUTH DAILY 90 Tab 2 8 Active gabapentin (NEURONTIN) 100 MG Capsule 0 9 Active azithromycin (ZITHROMAX Z-MICKEY) 250 MG TabletIndication s:Pharyngitis, unspecified etiology 2 tab(s) daily for 1 day, then 1 tab(s) daily for days 2-5. 6 Tab 9 Active Additional Information Patient not taking.Reported on 06/16/2018 ondansetron (ZOFRAN) 4 MG Tablet Take 1 Tab by mouth every 8 hours as needed for Nausea - 2nd line. 15 Tab 9 Active Additional Information Patient not taking.Reported on 08/29/2018 venlafaxine (EFFEXOR-XR) 150 MG CAPSULE SR 24 HR TAKE 1 CAPSULE BY MOUTH ONCE DAILY IN THE MORNING 0 Active amoxicillin-clav ulanate (AUGMENTIN) 875-125 MG TabletIndication s:Infected skin of earlobe, left Take 1 Tab by mouth 2 times daily. 20 Tab 0 Active Active Problems Problem Noted Date Diagnosed Date Hypothyroidism Depression Anxiety Rheumatoid arthritis Immunizations Immunization Administration Dates Next Due DTAP VACCINE 09/10/2000 DTP Vaccine 08/31/1997 DTP-Hib 1996,1996,1996 Hepatitis B Vaccine, Pediatric/adolescent 1996,1996,1996,04/29 Hib Vaccine,unspecified Formulation 08/31/1997 Human Papillomavirus Vaccine (HPV), quadrivalent 08/04/2010,03/31/2010,01/20/2010 Inactivated Polio Vaccine 09/10/2000 Influenza Vaccine 12/14/2011,01/19/2011,11/24/19 09 Influenza Vaccine, Quadrivalent, PF 10/24/2012 MMR Vaccine 09/10/2000,05/06/1997 Meningococcal MCV4O 12/14/2011 OPV 08/31/1997, 7,1996,07/01 TDAP Vaccine 06/30/2010 Td, Unspecified Formulation 08/06/2011 Varicella Vaccine Live 09/13/2006,08/12/2001 Family History Medical History Relation Name Comments Diabetes Mother Cancer Paternal Aunt Breast Cancer Paternal Grandmother Esophag eal Diabetes Paternal Grandmother Relation Name Status Comments Mother Paternal Aunt Paternal Grandmother Social History Tobacco Use Types Packs/Day Years Used Date Smoking Tobacco: Never Smokeless Tobacco: Current Tobacco Cessation:Counseling Given: No Comments:patient uses vape Alcohol Use Standard Drinks/Week Comments No 0 (1 standard drink = 0.6 oz pur e alcohol) Sexually Active Control Partners Comments Yes None Male Comments No Sex and Gender Information Value Date Recorded Sex Assigned at Not on file Legal Sex Female 9:13 PM CDT Gender Identity Not on file Sexual Orientation Not on file Last Filed Vital Signs Vital Sign Reading Time Taken Comments Blood Pressure 123/72 12/26/2021 3:15 PM ACCOUNTS PAYABLE PAYROLL COORDINATOR Pulse 94 12/26/2021 3:15 PM ACCOUNTS PAYABLE PAYROLL COORDINATOR Temperature 36.9 C (98.5 F) 12/26/2021 1:53 PM ACCOUNTS PAYABLE PAYROLL COORDINATOR Respiratory Rate 18 12/26/2021 1:53 PM ACCOUNTS PAYABLE PAYROLL COORDINATOR Oxygen Saturation 99% 12/26/2021 3:15 PM ACCOUNTS PAYABLE PAYROLL COORDINATOR Inhaled Oxygen Concentration - - Weight 117.9 kg (260 lb) 12/26/2021 1:51 PM ACCOUNTS PAYABLE PAYROLL COORDINATOR Height 177.8 cm (5' 10 ) 12/26/2021 1:51 PM ACCOUNTS PAYABLE PAYROLL COORDINATOR Body Mass Index 37.31 12/26/2021 1:51 PM ACCOUNTS PAYABLE PAYROLL COORDINATOR Plan of Treatment Health Maintenance Due Date Last Done Comments Hepatitis C Virus (HCV) Screening 1996 Pap Smear 2017 DTaP/Tdap/Td Immunization (8 - Td or Tdap) 08/05/2021 08/06/2011, 06/30/2010, 09/10/2000, Additional history exists Influenza Immunization (#1) 10/07/202310/06, 12/14/2011, 01/19/2011, Additional history exists SARS-COV-2 Immunization ( - season) 2023 10/12/2020, 09/21/2020 Respiratory Syncytial Virus (RSV) Immunization (Adult) (1 - 1-dose 75+ series) 04/30/2071 Hepatitis B Immunization Completed 997, 1996, 1996, Additional history exists Human Papillomavirus (HPV) Immunization Discontinued 08/04/2010, 03/31/2010, 01/20/2010 Meningococcal Immunization (ACWY) Aged Out 12/14/2011 No longer eligible based on patient's age to complete this topic Pneumococcal Immunization Combined Aged Out No longer eligible based on patient's age to complete this topic Rotavirus Immunization Aged Out No lo nger eligible based on patient's age to complete this topic Insurance MEDICAID [employer] Care Teams Instructor Physical Relationship Specialty Start Date End Date Taiwo Glez MD [address] [place] [address] [address] [place] [address] PCP - General Internal Medicine 03/17/20 Halima Qureshi MD Consulting Physician Obstetrics & Gynecology 07/10/16 Rhianna Diaz MD Consulting Physician Rheumatology 07/10/16
--- OUTSIDE RECORDS SUMMARY | 2024-03-17 14:32 | XMS_ITS | Patient Health Summary ---
Author Organization [facility] Address [address] [place] [address] Care Team Providers Care Organic Chemistry Professor Name Role Phone Corky Tejada MD Primary Care Provider [phone] Note from [facility],non-owned Affiliates and Associated Physician Practices is amultiple site organization consisting of ambulatory clinics and hospital sitesin [place], [place], [place] and [place]. This disclosure is being madepursuant to the Care Everywhere program and may not contain all information available regarding this patient. Last updated 17.[facility] Allergies * Adalimumab(Urticaria) -Medium Criticality * Ceftin(Urticaria) * Cefzil(Urticaria) * Cephalosporins(Rash) -Low Criticality * Enbrel(Shortness of Breath) * Naproxen * Prednisone(Urticaria) -Medium Criticality Medications * Be aware that medications may not be up to date on this document. Alwaysverify current medications with the patient. 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 Thyroiditis, autoimmune 05/27/2009 Social History Tobacco Use Types Packs/Day Years [...] Comments Blood Pressure 130/72 01/26/2022 10:48 AM FIRE PRODUCTION OPERATOR Pulse 92 08/07/2016 8:55 AM CDT Temperature 35.9 C (96.7 F) 01/26/2022 10:48 AM FIRE PRODUCTION OPERATOR Respiratory Rate 14 10/29/2013 3:30 PM CDT Oxygen Saturation - - Inhaled Oxygen Concentration - - Weight 119.7 kg (264 lb) 01/26/2022 10:48 AM FIRE PRODUCTION OPERATOR Height 175.3 cm (5' 9 ) 01/26/2022 10:48 AM FIRE PRODUCTION OPERATOR Body Mass Index 38.99 01/26/2022 10:48 AM FIRE PRODUCTION OPERATOR Procedures * OR INSERT NON-INDWELLING BLADDER(Performed 01/26/2022) Performed for Urgency incontinence, Nocturia * OR FIT/INSERT INTRAVAG SUPPORT DEVICE(Performed 01/26/2022) Performed for Midline cystocele, Incomplete uterovaginal prolapse, Perineocele * PROC PESSARY INSERTION(Performed 01/26/2022) Performed for Midline cystocele, Incomplete uterovaginal prolapse, Perineocele * URINALYSIS AUTO - POINT OF CARE (AMB) [facility](Performed 01/26/2022) Performed for Urgency incontinence, Nocturia * LAB HISTORICAL RESULTS-ONBASE(Performed 08/22/2016) * XR WRIST RIGHT 3VW OR MORE(Performed 10/30/2013) Performed for Polyarticular juvenile idiopathic arthritis (HCC), Thyroiditis, autoimmune, Arthralgia * XR WRIST LEFT 3VW OR MORE(Performed 10/30/2013) Performed for Polyarticular juvenile idiopathic arthritis (HCC), Thyroiditis, autoimmune, Arthralgia * XR HAND RIGHT 3VW OR MORE(Performed 10/30/2013) Performed for Polyarticular juvenile idiopathic arthritis (HCC), Thyroiditis, autoimmune, Arthralgia * XR HAND LEFT 3VW OR MORE(Performed 10/30/2013) Performed for Polyarticular juvenile idiopathic arthritis (HCC), Thyroiditis, autoimmune, Arthralgia * URINE MICROSCOPIC ONLY REFLEX TO CULTURE(Performed 10/30/2013) Performed for Polyarticular juvenile idiopathic arthritis (HCC) * T4 TOTAL(Performed 10/30/2013) Performed for Thyroiditis, autoimmune * TSH(Performed 10/30/2013) Performed for Thyroiditis, autoimmune * URINALYSIS REFLEX MICROSCOPIC REFLEX CULTURE(Performed 10/30/2013) Performed for Polyarticular juvenile idiopathic arthritis (HCC) * ERYTHROCYTE SEDIMENTATION RATE(Performed 10/30/2013) Performed for Polyarticular juvenile idiopathic arthritis (HCC) * C-REACTIVE PROTEIN(Performed 10/30/2013) Performed for Polyarticular juvenile idiopathic arthritis (HCC) * COMPREHENSIVE METABOLIC PANEL(Performed 10/30/2013) Performed for Polyarticular juvenile idiopathic arthritis (HCC) * CBC W AUTO DIFFERENTIAL(Performed 10/30/2013) Performed for Polyarticular juvenile idiopathic arthritis (HCC) * CULTURE STREP GROUP A(Performed 06/19/2013) * TSH(Performed 04/10/2013) Performed for Thyroiditis, autoimmune * T4 TOTAL(Performed 04/10/2013) Performed for Thyroiditis, autoimmune * SS-B (SJOGREN'S) ANTIBODY(Performed 11/14/2012) Performed for Polyarticular juvenile idiopathic arthritis (HCC), Thyroiditis, autoimmune, Arthralgia * SS-A (SJOGREN'S) ANTIBODY(Performed 11/14/2012) Performed for Polyarticular juvenile idiopathic arthritis (HCC), Thyroiditis, autoimmune, Arthralgia * LDH BLOOD(Performed 11/14/2012) Performed for Polyarticular juvenile idiopathic arthritis (HCC), Thyroiditis, autoimmune, Arthralgia * CK BLOOD(Performed 11/14/2012) Performed for Polyarticular juvenile idiopathic arthritis (HCC), Thyroiditis, autoimmune, Arthralgia * ERYTHROCYTE SEDIMENTATION RATE(Performed 11/14/2012) Performed for Polyarticular juvenile idiopathic arthritis (HCC), Thyroiditis, autoimmune, Arthralgia * C-REACTIVE PROTEIN(Performed 11/14/2012) Performed for Polyarticular juvenile idiopathic arthritis (HCC), Thyroiditis, autoimmune, Arthralgia * COMPREHENSIVE METABOLIC PANEL(Performed 11/14/2012) Performed for Polyarticular juvenile idiopathic arthritis (HCC), Thyroiditis, autoimmune, Arthralgia * CBC W AUTO DIFFERENTIAL(Performed 11/14/2012) Performed for Polyarticular juvenile idiopathic arthritis (HCC), Thyroiditis, autoimmune, Arthralgia * ALDOLASE(Performed 11/14/2012) Performed for Polyarticular juvenile idiopathic arthritis (HCC), Thyroiditis, autoimmune, Arthralgia * T4 TOTAL(Performed 11/14/2012) Performed for Polyarticular juvenile idiopathic arthritis (HCC), Thyroiditis, autoimmune, Arthralgia * T4 FREE(Performed 11/14/2012) Performed for Polyarticular juvenile idiopathic arthritis (HCC), Thyroiditis, autoimmune, Arthralgia * TSH(Performed 11/14/2012) Performed for Polyarticular juvenile idiopathic arthritis (HCC), Thyroiditis, autoimmune, Arthralgia * URINE MICROSCOPIC ONLY REFLEX TO CULTURE(Performed 08/15/2012) Performed for Polyarticular juvenile idiopathic arthritis (HCC), Thyroiditis, autoimmune * URINALYSIS REFLEX MICROSCOPIC REFLEX CULTURE(Performed 08/15/2012) Performed for Polyarticular juvenile idiopathic arthritis (HCC), Thyroiditis, autoimmune * T4 FREE(Performed 08/15/2012) Performed for Polyarticular juvenile idiopathic arthritis (HCC), Thyroiditis, autoimmune * T4 TOTAL(Performed 08/15/2012) Performed for Polyarticular juvenile idiopathic arthritis (HCC), Thyroiditis, autoimmune * TSH(Performed 08/15/2012) Performed for Polyarticular juvenile idiopathic arthritis (HCC), Thyroiditis, autoimmune * CAROLYN BLOOD SCREEN W/REFLEX TITER(Performed 08/15/2012) Performed for Polyarticular juvenile idiopathic arthritis (HCC), Thyroiditis, autoimmune * ERYTHROCYTE SEDIMENTATION RATE(Performed 08/15/2012) Performed for Polyarticular juvenile idiopathic arthritis (HCC), Thyroiditis, autoimmune * C-REACTIVE PROTEIN(Performed 08/15/2012) Performed for Polyarticular juvenile idiopathic arthritis (HCC), Thyroiditis, autoimmune * CBC W AUTO DIFFERENTIAL(Performed 08/15/2012) Performed for Polyarticular juvenile idiopathic arthritis (HCC), Thyroiditis, autoimmune * COMPREHENSIVE METABOLIC PANEL(Performed 08/15/2012) Performed for Polyarticular juvenile idiopathic arthritis (HCC), Thyroiditis, autoimmune * XR HAND RIGHT 3VW OR MORE(Performed 08/15/2012) Performed for Polyarticular juvenile idiopathic arthritis (HCC), Thyroiditis, autoimmune * XR HAND LEFT 3VW OR MORE(Performed 08/15/2012) Performed for Polyarticular juvenile idiopathic arthritis (HCC), Thyroiditis, autoimmune * LAB RESULTS ORDER(Performed 07/27/2012) * LIPID PROFILE(Performed 10/19/2011) Performed for Thyroiditis, autoimmune * CAROLYN BLOOD SCREEN W/REFLEX TITER(Performed 10/19/2011) Performed for Polyarticular juvenile idiopathic arthritis (HCC) * RHEUMATOID FACTOR BLOOD SCREEN(Performed 10/19/2011) Performed for Polyarticular juvenile idiopathic arthritis (HCC) * C-REACTIVE PROTEIN(Performed 10/19/2011) Performed for Polyarticular juvenile idiopathic arthritis (HCC) * ERYTHROCYTE SEDIMENTATION RATE(Performed 10/19/2011) Performed for Polyarticular juvenile idiopathic arthritis (HCC) * COMPREHENSIVE METABOLIC PANEL(Performed 10/19/2011) Performed for Polyarticular juvenile idiopathic arthritis (HCC) * TSH(Performed 10/19/2011) Performed for Thyroiditis, autoimmune * CBC W AUTO DIFFERENTIAL(Performed 10/19/2011) Performed for Thyroiditis, autoimmune * T4 TOTAL(Performed 10/19/2011) Performed for Thyroiditis, autoimmune * URINE MICROSCOPIC ONLY REFLEX TO CULTURE(Performed 10/19/2011) Performed for Polyarticular juvenile idiopathic arthritis (HCC) * URINALYSIS REFLEX MICROSCOPIC REFLEX CULTURE(Performed 10/19/2011) Performed for Polyarticular juvenile idiopathic arthritis (HCC) * ERYTHROCYTE SEDIMENTATION RATE(Performed 03/23/2011) Performed for Polyarticular juvenile idiopathic arthritis (HCC) * C-REACTIVE PROTEIN(Performed 03/23/2011) Performed for Polyarticular juvenile idiopathic arthritis (HCC) * CBC W AUTO DIFFERENTIAL(Performed 03/23/2011) Performed for Polyarticular juvenile idiopathic arthritis (HCC) * TSH(Performed 03/23/2011) Performed for Thyroiditis, autoimmune * T4 TOTAL(Performed 03/23/2011) Performed for Thyroiditis, autoimmune * URINALYSIS REFLEX MICROSCOPIC REFLEX CULTURE(Performed 03/23/2011) Performed for Polyarticular juvenile idiopathic arthritis (HCC) * XR SI JOINTS 3VW OR MORE(Performed 10/13/2010) Performed for Polyarticular juvenile idiopathic arthritis (HCC) * XR KNEE RIGHT 2VW OR LESS(Performed 10/13/2010) Performed for Polyarticular juvenile idiopathic arthritis (HCC) * XR HAND RIGHT 3VW OR MORE(Performed 10/13/2010) Performed for Polyarticular juvenile idiopathic arthritis (HCC) * XR HAND LEFT 3VW OR MORE(Performed 10/13/2010) Performed for Polyarticular juvenile idiopathic arthritis (HCC) * XR LUMBAR SPINE 2 OR 3VW(Performed 10/13/2010) Performed for Polyarticular juvenile idiopathic arthritis (HCC) * DIFFERENTIAL MANUAL(Performed 10/13/2010) * URINALYSIS REFLEX MICROSCOPIC REFLEX CULTURE(Performed 10/13/2010) * SS-B (SJOGREN'S) ANTIBODY(Performed 10/13/2010) * SS-A (SJOGREN'S) ANTIBODY(Performed 10/13/2010) * GAR (SM) ANTIBODY JORGE(Performed 10/13/2010) * SCLERODERMA 70 (SCL) ANTIBODY(Performed 10/13/2010) * HAND BUFFER ANTIBODY(Performed 10/13/2010) * DNA ANTIBODY DOUBLE STRANDED(Performed 10/13/2010) * CAROLYN BLOOD SCREEN W/REFLEX TITER(Performed 10/13/2010) * CYCLIC CITRULLINATED PEPTIDE(CCP) AB IGG(Performed 10/13/2010) * TSH(Performed 10/13/2010) * RHEUMATOID FACTOR BLOOD SCREEN(Performed 10/13/2010) * C-REACTIVE PROTEIN(Performed 10/13/2010) * ERYTHROCYTE SEDIMENTATION RATE(Performed 10/13/2010) * COMPREHENSIVE METABOLIC PANEL(Performed 10/13/2010) * CBC W AUTO DIFFERENTIAL(Performed 10/13/2010) * XR KNEE LEFT 2VW OR LESS(Performed 10/13/2010) Performed for Polyarticular juvenile idiopathic arthritis (HCC) * T4 FREE(Performed 08/18/2010) Performed for Thyroiditis, autoimmune * TSH(Performed 08/18/2010) Performed for Thyroiditis, autoimmune * ERYTHROCYTE SEDIMENTATION RATE(Performed 08/18/2010) Performed for Polyarticular juvenile idiopathic arthritis (HCC) * C-REACTIVE PROTEIN(Performed 08/18/2010) Performed for Polyarticular juvenile idiopathic arthritis (HCC) * COMPREHENSIVE METABOLIC PANEL(Performed 08/18/2010) Performed for Polyarticular juvenile idiopathic arthritis (HCC) * CBC W AUTO DIFFERENTIAL(Performed 08/18/2010) Performed for Polyarticular juvenile idiopathic arthritis (HCC) * URINALYSIS REFLEX MICROSCOPIC REFLEX CULTURE(Performed 08/18/2010) Performed for Polyarticular juvenile idiopathic arthritis (HCC) * LAB RESULTS ORDER(Performed 05/24/2010) * URINALYSIS REFLEX MICROSCOPIC REFLEX CULTURE(Performed 05/19/2010) * LDH BLOOD(Performed 05/19/2010) * CK BLOOD(Performed 05/19/2010) * ALDOLASE(Performed 05/19/2010) * ERYTHROCYTE SEDIMENTATION RATE(Performed 05/19/2010) * C-REACTIVE PROTEIN(Performed 05/19/2010) * COMPREHENSIVE METABOLIC PANEL(Performed 05/19/2010) * CBC W AUTO DIFFERENTIAL(Performed 05/19/2010) * TSH(Performed 05/19/2010) Performed for Thyroiditis, autoimmune * T4 TOTAL(Performed 05/19/2010) Performed for Thyroiditis, autoimmune * THYROID AB PANEL (TPO AB+THYROGLOB AB)(Performed 01/06/2010) Performed for Polyarticular juvenile idiopathic arthritis (HCC), Thyroiditis, autoimmune * T4 FREE(Performed 01/06/2010) Performed for Polyarticular juvenile idiopathic arthritis (HCC), Thyroiditis, autoimmune * TSH(Performed 01/06/2010) Performed for Polyarticular juvenile idiopathic arthritis (HCC), Thyroiditis, autoimmune * ERYTHROCYTE SEDIMENTATION RATE(Performed 01/06/2010) Performed for Polyarticular juvenile idiopathic arthritis (HCC), Thyroiditis, autoimmune * C-REACTIVE PROTEIN(Performed 01/06/2010) Performed for Polyarticular juvenile idiopathic arthritis (HCC), Thyroiditis, autoimmune * COMPREHENSIVE METABOLIC PANEL(Performed 01/06/2010) Performed for Polyarticular juvenile idiopathic arthritis (HCC), Thyroiditis, autoimmune * CBC W AUTO DIFFERENTIAL(Performed 01/06/2010) Performed for Polyarticular juvenile idiopathic arthritis (HCC), Thyroiditis, autoimmune * URINALYSIS REFLEX MICROSCOPIC REFLEX CULTURE(Performed 01/06/2010) Performed for Polyarticular juvenile idiopathic arthritis (HCC), Thyroiditis, autoimmune * LAB RESULTS ORDER(Performed 12/17/2009) * ERYTHROCYTE SEDIMENTATION RATE(Performed 08/19/2009) Performed for Polyarticular Juvenile Idiopathic Arthritis (HCC) * C-REACTIVE PROTEIN(Performed 08/19/2009) Performed for Polyarticular Juvenile Idiopathic Arthritis (HCC) * CBC W AUTO DIFFERENTIAL(Performed 08/19/2009) Performed for Polyarticular Juvenile Idiopathic Arthritis (HCC) * COMPREHENSIVE METABOLIC PANEL(Performed 08/19/2009) Performed for Polyarticular Juvenile Idiopathic Arthritis (HCC), Chronic Lymphocytic Thyroiditis * T4 FREE(Performed 08/19/2009) Performed for Thyroiditis, Autoimmune * TSH(Performed 08/19/2009) Performed for Thyroiditis, Autoimmune * URINALYSIS REFLEX MICROSCOPIC REFLEX CULTURE(Performed 08/19/2009) Performed for Polyarticular Juvenile Idiopathic Arthritis (HCC) * T3 TOTAL(Performed 05/28/2009) Performed for Thyroid Gland Disease * T3 TOTAL(Performed 05/27/2009) Performed for Polyarticular Juvenile Rheumatoid Arthritis, Chronic or Unspecified (HCC) * T4 FREE(Performed 05/27/2009) Performed for Polyarticular Juvenile Rheumatoid Arthritis, Chronic or Unspecified (HCC) * VITAMIN D 25-HYDROXY(Performed 05/27/2009) Performed for Polyarticular Juvenile Rheumatoid Arthritis, Chronic or Unspecified (HCC) * RHEUMATOID FACTOR BLOOD SCREEN(Performed 05/27/2009) Performed for Polyarticular Juvenile Rheumatoid Arthritis, Chronic or Unspecified (HCC) * ERYTHROCYTE SEDIMENTATION RATE(Performed 05/27/2009) Performed for Polyarticular Juvenile Rheumatoid Arthritis, Chronic or Unspecified (HCC) * TSH(Performed 05/27/2009) Performed for Polyarticular Juvenile Rheumatoid Arthritis, Chronic or Unspecified (HCC) * CK BLOOD(Performed 05/27/2009) Performed for Polyarticular Juvenile Rheumatoid Arthritis, Chronic or Unspecified (HCC) * CYCLIC CITRULLINATED PEPTIDE(CCP) AB IGG(Performed 05/27/2009) Performed for Polyarticular Juvenile Rheumatoid Arthritis, Chronic or Unspecified (HCC) * C-REACTIVE PROTEIN(Performed 05/27/2009) Performed for Polyarticular Juvenile Rheumatoid Arthritis, Chronic or Unspecified (HCC) * COMPREHENSIVE METABOLIC PANEL(Performed 05/27/2009) Performed for Polyarticular Juvenile Rheumatoid Arthritis, Chronic or Unspecified (HCC) * CBC W AUTO DIFFERENTIAL(Performed 05/27/2009) Performed for Polyarticular Juvenile Rheumatoid Arthritis, Chronic or Unspecified (HCC) * ALDOLASE(Performed 05/27/2009) Performed for Polyarticular Juvenile Rheumatoid Arthritis, Chronic or Unspecified (HCC) * URINALYSIS REFLEX MICROSCOPIC REFLEX CULTURE(Performed 05/27/2009) Performed for Polyarticular Juvenile Rheumatoid Arthritis, Chronic or Unspecified (HCC) * GROSS EXAM PATHOLOGY(Performed 09/08/2008) Results * OR INSERT NON-INDWELLING BLADDER (01/26/2022 11:54 AM FIRE PRODUCTION OPERATOR) Narrative Monica Cabral Che, MD - 01/26/2022 11:54 AM FIRE PRODUCTION OPERATOR Monica Cabral Che, MD 01/26/2022 11:54 AM The patient was prepped with betadine (or with hibiclens or other antiseptic agent if allergic to topical iodine). She understood the rationale for the procedure and agreed to the procedure. A 15F short female catheter was then advanced into the urethra and urine was collected for bedside urinalysis as well as a urine culture and/or formal urinalysis as needed. The post void residual is as noted in the progress note, as are results of the dipstick taken. The patient tolerated the procedure well. Monica Cabral MD PROCEDURE/MINOR SURG ICAL ORDERABLES * OR FIT/INSERT INTRAVAG SUPPORT DEVICE (01/26/2022 11:32 AM FIRE PRODUCTION OPERATOR) Narrative Monica Cabral Che, MD - 01/26/2022 11:32 AM FIRE PRODUCTION OPERATOR Monica Cabral Che, MD 01/26/2022 11:33 AM #6 ring pessary with floor Monica Cabral MD PROCEDURE/MINOR SURG ICAL ORDERABLES * URINALYSIS AUTO - POINT OF CARE (AMB) [facility] (01/26/2022) Glucose UA neg Bilirubin UA POCT neg Ketones UA POCT neg Specific [place] UA 1.015 Blood Urine POCT neg pH UA 6.0 Protein UA neg Urobilinogen UA 0.2 Nitrite UA neg WBC UA neg Urine URINE / Unknown 01/26/2022 Monica Cabral MD LAB - POINT OF CARE ORDERABLES * LAB HISTORICAL RESULTS-ONBASE (08/22/2016) 08/22/2016 Historical Provider LAB - CHEMISTRY O RDERABLES Performing Organization Address City/State/[facility] Co de Phone Number [place] [phone] [place] [address], [facility] * XR WRIST 3+ VW RIGHT (10/30/2013 6:25 PM CDT) Anatomical Region Laterality Modality Wrist / Hand Radiographic Mariaelena ging 10/31/2013 8:18 AM CDT Impressions 10/31/2013 8:55 AM CDT Bilateral, symmetric cystic lucencies within the carpal bones and at the bases of the third metacarpals with periarticular demineralization about the wrist and flexion contraction deformities at the second through fifth proximal interphalangeal joints in keeping with history of juvenile polyarticular rheumatoid arthritis. Narrative 10/31/2013 8:55 AM CDT EXAMINATION: 1. Left hand 3 views 2. Right hand 3 views 3. Left wrist 3 views 4. Right wrist 3 views HISTORY: 18-year-old with juvenile rheumatoid arthritis. COMPARISON: Right and left hand radiographs dated 08/15/2012, 10/13/2010, and 04/04/2007. FINDINGS: 1. Right hand and wrist: PA, oblique, and lateral views of the right wrist and PA, oblique, and lateral views of the right hand are submitted for interpretation. There are multiple cystic lucencies within the carpal bones and at the base of the third metacarpal. The carpal bones, metacarpal bases, and distal radius and ulna demonstrate periarticular demineralization. There are flexion contraction deformities at the second through fifth proximal interphalangeal joints, most severe at the fifth digit. There is no fracture. 2. Left hand and wrist: PA, oblique, and lateral views of the left wrist and PA, oblique, and lateral views of the left hand are submitted for interpretation. There are several cystic lucencies within the carpal bones and at the base of the third metacarpal. There is jami-articular demineralization at the bases of the metacarpals, carpal bones, and distal radius and ulna. Flexion contraction deformities are again noted at the second through fifth proximal interphalangeal joints, most severe at the fourth and fifth digits. There is no fracture. Procedure Note Fanny Jacques MD - 10/31/2013 EXAMINATION: 1. Left hand 3 views 2. Right hand 3 views 3. Left wrist 3 views 4. Right wrist 3 views HISTORY: 18-year-old with juvenile rheumatoid arthritis. COMPARISON: Right and left hand radiographs dated 08/15/2012, 10/13/2010, and 04/04/2007. FINDINGS: 1. Right hand and wrist: PA, oblique, and lateral views of the right wrist and PA, oblique, and lateral views of the right hand are submitted for interpretation. There are multiple cystic lucencies within the carpal bones and at the base of the third metacarpal. The carpal bones, metacarpal bases, and distal radius and ulna demonstrate periarticular demineralization. There are flexion contraction deformities at the second through fifth proximal interphalangeal joints, most severe at the fifth digit. There is no fracture. 2. Left hand and wrist: PA, oblique, and lateral views of the left wrist and PA, oblique, and lateral views of the left hand are submitted for interpretation. There are several cystic lucencies within the carpal bones and at the base of the third metacarpal. There is jami-articular demineralization at the bases of the metacarpals, carpal bones, and distal radius and ulna. Flexion contraction deformities are again noted at the second through fifth proximal interphalangeal joints, most severe at the fourth and fifth digits. There is no fracture. IMPRESSION Bilateral, symmetric cystic lucencies within the carpal bones and at the bases of the third metacarpals with periarticular demineralization about the wrist and flexion contraction deformities at the second through fifth proximal interphalangeal joints in keeping with history of juvenile polyarticular rheumatoid arthritis. Lloyd Redd DO DIAGNOSTIC IMAGING O RDERABLES * XR WRIST 3+ VW LEFT (10/30/2013 6:25 PM CDT) Anatomical Region Laterality Modality Wrist / Hand Radiographic Mariaelena ging 10/31/2013 8:18 AM CDT Impressions 10/31/2013 8:55 AM CDT Bilateral, symmetric cystic lucencies within the carpal bones and at the bases of the third metacarpals with periarticular demineralization about the wrist and flexion contraction deformities at the second through fifth proximal interphalangeal joints in keeping with history of juvenile polyarticular rheumatoid arthritis. Narrative 10/31/2013 8:55 AM CDT EXAMINATION: 1. Left hand 3 views 2. Right hand 3 views 3. Left wrist 3 views 4. Right wrist 3 views HISTORY: 18-year-old with juvenile rheumatoid arthritis. COMPARISON: Right and left hand radiographs dated 08/15/2012, 10/13/2010, and 04/04/2007. FINDINGS: 1. Right hand and wrist: PA, oblique, and lateral views of the right wrist and PA, oblique, and lateral views of the right hand are submitted for interpretation. There are multiple cystic lucencies within the carpal bones and at the base of the third metacarpal. The carpal bones, metacarpal bases, and distal radius and ulna demonstrate periarticular demineralization. There are flexion contraction deformities at the second through fifth proximal interphalangeal joints, most severe at the fifth digit. There is no fracture. 2. Left hand and wrist: PA, oblique, and lateral views of the left wrist and PA, oblique, and lateral views of the left hand are submitted for interpretation. There are several cystic lucencies within the carpal bones and at the base of the third metacarpal. There is jami-articular demineralization at the bases of the metacarpals, carpal bones, and distal radius and ulna. Flexion contraction deformities are again noted at the second through fifth proximal interphalangeal joints, most severe at the fourth and fifth digits. There is no fracture. Procedure Note Fanny Jacques MD - 10/31/2013 EXAMINATION: 1. Left hand 3 views 2. Right hand 3 views 3. Left wrist 3 views 4. Right wrist 3 views HISTORY: 18-year-old with juvenile rheumatoid arthritis. COMPARISON: Right and left hand radiographs dated 08/15/2012, 10/13/2010, and 04/04/2007. FINDINGS: 1. Right hand and wrist: PA, oblique, and lateral views of the right wrist and PA, oblique, and lateral views of the right hand are submitted for interpretation. There are multiple cystic lucencies within the carpal bones and at the base of the third metacarpal. The carpal bones, metacarpal bases, and distal radius and ulna demonstrate periarticular demineralization. There are flexion contraction deformities at the second through fifth proximal interphalangeal joints, most severe at the fifth digit. There is no fracture. 2. Left hand and wrist: PA, oblique, and lateral views of the left wrist and PA, oblique, and lateral views of the left hand are submitted for interpretation. There are several cystic lucencies within the carpal bones and at the base of the third metacarpal. There is jami-articular demineralization at the bases of the metacarpals, carpal bones, and distal radius and ulna. Flexion contraction deformities are again noted at the second through fifth proximal interphalangeal joints, most severe at the fourth and fifth digits. There is no fracture. IMPRESSION Bilateral, symmetric cystic lucencies within the carpal bones and at the bases of the third metacarpals with periarticular demineralization about the wrist and flexion contraction deformities at the second through fifth proximal interphalangeal joints in keeping with history of juvenile polyarticular rheumatoid arthritis. Lloyd Redd DO DIAGNOSTIC IMAGING O RDERABLES * XR HAND 3+ VW RIGHT (10/30/2013 6:24 PM CDT) Only the most recent of3 resultswithin the time period is included. Anatomical Region Laterality Modality Wrist / Hand Radiographic Mariaelena ging 10/31/2013 8:18 AM CDT Impressions 10/31/2013 8:55 AM CDT Bilateral, symmetric cystic lucencies within the carpal bones and at the bases of the third metacarpals with periarticular demineralization about the wrist and flexion contraction deformities at the second through fifth proximal interphalangeal joints in keeping with history of juvenile polyarticular rheumatoid arthritis. Narrative 10/31/2013 8:55 AM CDT EXAMINATION: 1. Left hand 3 views 2. Right hand 3 views 3. Left wrist 3 views 4. Right wrist 3 views HISTORY: 18-year-old with juvenile rheumatoid arthritis. COMPARISON: Right and left hand radiographs dated 08/15/2012, 10/13/2010, and 04/04/2007. FINDINGS: 1. Right hand and wrist: PA, oblique, and lateral views of the right wrist and PA, oblique, and lateral views of the right hand are submitted for interpretation. There are multiple cystic lucencies within the carpal bones and at the base of the third metacarpal. The carpal bones, metacarpal bases, and distal radius and ulna demonstrate periarticular demineralization. There are flexion contraction deformities at the second through fifth proximal interphalangeal joints, most severe at the fifth digit. There is no fracture. 2. Left hand and wrist: PA, oblique, and lateral views of the left wrist and PA, oblique, and lateral views of the left hand are submitted for interpretation. There are several cystic lucencies within the carpal bones and at the base of the third metacarpal. There is jami-articular demineralization at the bases of the metacarpals, carpal bones, and distal radius and ulna. Flexion contraction deformities are again noted at the second through fifth proximal interphalangeal joints, most severe at the fourth and fifth digits. There is no fracture. Procedure Note Fanny Jacques MD - 10/31/2013 EXAMINATION: 1. Left hand 3 views 2. Right hand 3 views 3. Left wrist 3 views 4. Right wrist 3 views HISTORY: 18-year-old with juvenile rheumatoid arthritis. COMPARISON: Right and left hand radiographs dated 08/15/2012, 10/13/2010, and 04/04/2007. FINDINGS: 1. Right hand and wrist: PA, oblique, and lateral views of the right wrist and PA, oblique, and lateral views of the right hand are submitted for interpretation. There are multiple cystic lucencies within the carpal bones and at the base of the third metacarpal. The carpal bones, metacarpal bases, and distal radius and ulna demonstrate periarticular demineralization. There are flexion contraction deformities at the second through fifth proximal interphalangeal joints, most severe at the fifth digit. There is no fracture. 2. Left hand and wrist: PA, oblique, and lateral views of the left wrist and PA, oblique, and lateral views of the left hand are submitted for interpretation. There are several cystic lucencies within the carpal bones and at the base of the third metacarpal. There is jami-articular demineralization at the bases of the metacarpals, carpal bones, and distal radius and ulna. Flexion contraction deformities are again noted at the second through fifth proximal interphalangeal joints, most severe at the fourth and fifth digits. There is no fracture. IMPRESSION Bilateral, symmetric cystic lucencies within the carpal bones and at the bases of the third metacarpals with periarticular demineralization about the wrist and flexion contraction deformities at the second through fifth proximal interphalangeal joints in keeping with history of juvenile polyarticular rheumatoid arthritis. Lloyd Redd DO DIAGNOSTIC IMAGING O RDERABLES * XR HAND 3+ VW LEFT (10/30/2013 6:24 PM CDT) Only the most recent of3 resultswithin the time period is included. Anatomical Region Laterality Modality Wrist / Hand Radiographic Mariaelena ging 10/31/2013 8:18 AM CDT Impressions 10/31/2013 8:55 AM CDT Bilateral, symmetric cystic lucencies within the carpal bones and at the bases of the third metacarpals with periarticular demineralization about the wrist and flexion contraction deformities at the second through fifth proximal interphalangeal joints in keeping with history of juvenile polyarticular rheumatoid arthritis. Narrative 10/31/2013 8:55 AM CDT EXAMINATION: 1. Left hand 3 views 2. Right hand 3 views 3. Left wrist 3 views 4. Right wrist 3 views HISTORY: 18-year-old with juvenile rheumatoid arthritis. COMPARISON: Right and left hand radiographs dated 08/15/2012, 10/13/2010, and 04/04/2007. FINDINGS: 1. Right hand and wrist: PA, oblique, and lateral views of the right wrist and PA, oblique, and lateral views of the right hand are submitted for interpretation. There are multiple cystic lucencies within the carpal bones and at the base of the third metacarpal. The carpal bones, metacarpal bases, and distal radius and ulna demonstrate periarticular demineralization. There are flexion contraction deformities at the second through fifth proximal interphalangeal joints, most severe at the fifth digit. There is no fracture. 2. Left hand and wrist: PA, oblique, and lateral views of the left wrist and PA, oblique, and lateral views of the left hand are submitted for interpretation. There are several cystic lucencies within the carpal bones and at the base of the third metacarpal. There is jami-articular demineralization at the bases of the metacarpals, carpal bones, and distal radius and ulna. Flexion contraction deformities are again noted at the second through fifth proximal interphalangeal joints, most severe at the fourth and fifth digits. There is no fracture. Procedure Note Fanny Jacques MD - 10/31/2013 EXAMINATION: 1. Left hand 3 views 2. Right hand 3 views 3. Left wrist 3 views 4. Right wrist 3 views HISTORY: 18-year-old with juvenile rheumatoid arthritis. COMPARISON: Right and left hand radiographs dated 08/15/2012, 10/13/2010, and 04/04/2007. FINDINGS: 1. Right hand and wrist: PA, oblique, and lateral views of the right wrist and PA, oblique, and lateral views of the right hand are submitted for interpretation. There are multiple cystic lucencies within the carpal bones and at the base of the third metacarpal. The carpal bones, metacarpal bases, and distal radius and ulna demonstrate periarticular demineralization. There are flexion contraction deformities at the second through fifth proximal interphalangeal joints, most severe at the fifth digit. There is no fracture. 2. Left hand and wrist: PA, oblique, and lateral views of the left wrist and PA, oblique, and lateral views of the left hand are submitted for interpretation. There are several cystic lucencies within the carpal bones and at the base of the third metacarpal. There is jami-articular demineralization at the bases of the metacarpals, carpal bones, and distal radius and ulna. Flexion contraction deformities are again noted at the second through fifth proximal interphalangeal joints, most severe at the fourth and fifth digits. There is no fracture. IMPRESSION Bilateral, symmetric cystic lucencies within the carpal bones and at the bases of the third metacarpals with periarticular demineralization about the wrist and flexion contraction deformities at the second through fifth proximal interphalangeal joints in keeping with history of juvenile polyarticular rheumatoid arthritis. Lloyd Redd DO DIAGNOSTIC IMAGING O RDERABLES * (ABNORMAL) URINALYSIS MICROSCOPIC ONLY W/REFLEX CULTURE (10/30/2013 5:46 PM CDT) Only the most recent of3 resultswithin the time period is included. RBC UA 0-2 0-2, 2-5 # /hpf 10/30/2013 6:37 PM CDT [facility] WBC UA 0-2 0-2, 2-5 # /hpf 10/30/2013 6:37 PM CDT [facility] Bacteria UA Trace None Seen, Trace 10/30/2013 6:37 PM CDT [facility] Epithelial Cell UA 5-10(A) 0-2, 2-5 10/30/2013 6:37 PM CDT [facility] Yeast UA None Seen 10/30/2013 6:37 PM CDT [facility] Comment:Trace Urine URINE SPECIMEN OBTAINED BY CLEAN CATCH PROCEDURE / Unknown Collection / Unknown 10/30/2013 5:46 PM CDT 10/30/2013 5:59 PM CDT Lloyd Redd DO LAB - URINALYSIS ORD ERABLES Performing Organization Address City/State/[facility] Co de Phone Number [facility] [address] [place] [address] * (ABNORMAL) URINALYSIS ROUTINE W/REFLEX TO CULTURE (10/30/2013 5:46 PM CDT) Only the most recent of10 resultswithin the time period is included. Color UA Yellow Straw, Yellow, Dark Yellow 10/30/2013 6:29 PM CDT [facility] Clarity UA Slt Cloudy 10/30/2013 6:29 PM CDT [facility] Specific [place] UA >=1.030 1.005 - 1.030 10/30/2013 6:29 PM CDT [facility] pH UA 6.0 5.0 - 8.0 pH 10/30/2013 6:29 PM CDT [facility] Protein UA Negative Negative 10/30/2013 6:29 PM CDT [facility] Blood UA 1+(A) Negative 10/30/2013 6:29 PM CDT [facility] Leukocyte UA Negative Negative 10/30/2013 6:29 PM CDT [facility] Nitrite UA Negative Negative 10/30/2013 6:29 PM CDT [facility] Glucose UA Negative Negative 10/30/2013 6:29 PM CDT [facility] Ketone UA Negative Negative 10/30/2013 6:29 PM CDT [facility] Bilirubin UA Negative Negative 10/30/2013 6:29 PM CDT [facility] Urobilinogen UA 0.2 0.1 - 1.0 EU/dL 10/30/2013 6:29 PM CDT [facility] Reflex Status Culture not indicated 10/30/2013 6:29 PM CDT [facility] Urine URINE SPECIMEN OBTAINED BY CLEAN CATCH PROCEDURE / Unknown Collection / Unknown 10/30/2013 5:46 PM CDT 10/30/2013 5:59 PM CDT Lloyd Redd DO LAB - URINALYSIS ORD ERABLES Performing Organization Address [facility] Co de Phone Number [facility] [address] [place] [address] * C-REACTIVE PROTEIN (10/30/2013 5:46 PM CDT) Only the most recent of11 resultswithin the time period is included. C-Reactive Protein 0.30 <=0.50 mg/dL 10/30/2013 6:44 PM CDT [facility] Blood BLOOD SPECIMEN / Unknown Lab Venipuncture / Unknown 10/30/2013 5:46 PM CDT 10/30/2013 5:58 PM CDT Lloyd Redd DO LAB - CHEMISTRY ORDE RABLES Performing Organization Address City/[facility]/ZIP Co de Phone Number [facility] [address] [place] [address] * SED RATE WESTERGREN (10/30/2013 5:46 PM CDT) Only the most recent of11 resultswithin the time period is included. Erythrocyte Sedimentation Rate Westergren 10 0 - 12 mm/hr 10/30/2013 6:19 PM CDT [facility] Blood BLOOD SPECIMEN / Unknown Lab Venipuncture / Unknown 10/30/2013 5:46 PM CDT 10/30/2013 5:57 PM CDT Lloyd Redd DO LAB - HEMATOLOGY ORD ERABLES [facility] [address] [place] [address] * (ABNORMAL) CBC W AUTO DIFFERENTIAL (10/30/2013 5:46 PM CDT) Only the most recent of11 resultswithin the time period is included. WBC 7.2 4.5 - 11.0 x10^9/L 10/30/2013 6:06 PM [facility] RBC 4.41 4.10 - 5.10 x10^12/L 10/30/2013 6:06 PM [facility] Hemoglobin 12.1 12.0 - 16.0 gm/dL 10/30/2013 6:06 PM [facility] Hematocrit 35.6(L) 36.0 - 47.0 % 10/30/2013 6:06 PM [facility] MCV 80.7 78.0 - 98.0 fl 10/30/2013 6:06 PM [facility] MCH 27.4 25.0 - 35.0 pg 10/30/2013 6:06 PM [facility] MCHC 34.0 31.0 - 37.0 gm/dL 10/30/2013 6:06 PM [facility] Platelet Count 241 100 - 400 x10^9/L 10/30/2013 6:06 PM [facility] RDW-CV 14.1(H) 11.5 - 14.0 % 10/30/2013 6:06 PM [facility] MPV 10.5(H) 6.0 - 9.5 fl 10/30/2013 6:06 PM [facility] Neutrophils % 55.9 31.0 - 78.0 % 10/30/2013 6:06 PM CDT [facility] Lymphocytes % 33.3 13.0 - 54.0 % 10/30/2013 6:06 PM CDT [facility] Monocytes % 5.7 4.0 - 13.0 % 10/30/2013 6:06 PM CDT [facility] Eosinophils % 4.3 0.0 - 8.0 % 10/30/2013 6:06 PM CDT [facility] Basophils % 0.7 % 10/30/2013 6:06 PM CDT [facility] Immature Granulocytes 0.1 % 10/30/2013 6:06 PM CDT [facility] Neutrophil Absolute 4.04 x10^9/L 10/30/2013 6:06 PM CDT [facility] Lymphocytes Absolute 2.41 x10^9/L 10/30/2013 6:06 PM CDT [facility] Monocytes Absolute 0.41 x10^9/L 10/30/2013 6:06 PM CDT [facility] Eosinophils Absolute 0.31 x10^9/L 10/30/2013 6:06 PM T [facility] Basophils Absolute 0.05 x10^9/L 10/30/2013 6:06 PM CDT [facility] Immature Granulocytes Absolute 0.01 x10^9/L 10/30/2013 6:06 PM T [facility] Blood BLOOD SPECIMEN / Unknown Lab Venipuncture / Unknown 10/30/2013 5:46 PM CDT 10/30/2013 5:57 PM CDT Lloyd Redd DO LAB - HEMATOLOGY ORD ERABLES Performing Organization Address City/State/[facility] Co de Phone Number [facility] [address] [place] [address] * (ABNORMAL) COMPREHENSIVE METABOLIC PANEL (10/30/2013 5:46 PM CDT) Only the most recent of10 resultswithin the time period is included. [facility] Glucose 87 70 - 105 mg/dL 10/30/2013 6:43 PM CDT [facility] Sodium 140 136 - 145 mmol/L 10/30/2013 6:43 PM CDT [facility] Potassium 4.0 3.5 - 5.1 mmol/L 10/30/2013 6:43 PM [facility] Chloride 105 98 - 107 mmol/L 10/30/2013 6:43 PM [facility] CO2 26 20 - 28 mmol/L 10/30/2013 6:43 PM [facility] Calcium 9.36 9.08 - 10.48 mg/dL 10/30/2013 6:43 PM [facility] Anion Gap 9 5 - 20 mmol/L 10/30/2013 6:43 PM [facility] BUN 9.4 5.3 - 18.7 mg/dL 10/30/2013 6:43 PM [facility] Creatinine 0.88 0.61 - 1.07 mg/dL 10/30/2013 6:43 PM [facility] eGFR by MDRD >60 mL/min/1.7 3m2 10/30/2013 6:43 PM [facility] Comment:eGFR calculations ar e not performed for children under 18 years old. eGFR by MDRD >60 mL/min/1.7 3m2 10/30/2013 6:43 PM [facility] Comment:eGFR calculations ar e not performed for children under 18 years old. Alkaline Phosphatase 52(L) 100 - 390 U/L 10/30/2013 6:43 PM [facility] ALT 15 8 - 65 U/L 10/30/2013 6:43 PM [facility] AST 17 3 - 35 U/L 10/30/2013 6:43 PM [facility] Protein Total 7.4 6.3 - 8.2 gm/dL 10/30/2013 6:43 PM [facility] Albumin 4.1 3.3 - 4.9 gm/dL 10/30/2013 6:43 PM [facility] Bilirubin Total 0.5 0.3 - 1.2 mg/dL 10/30/2013 6:43 PM [facility] Blood BLOOD SPECIMEN / Unknown Lab Venipuncture / Unknown 10/30/2013 5:46 PM CDT 10/30/2013 5:58 PM T Lloyd Redd DO LAB - CHEMISTRY MI ABREU [facility] [address] [place] [phone] * (ABNORMAL) TSH (10/30/2013 5:46 PM CDT) Only the most recent of12 resultswithin the time period is included. [facility] TSH 44.62(H) 0.35 - 4.95 uIU/mL 10/30/2013 7:20 PM CDT [facility] Blood BLOOD SPECIMEN / Unknown Lab Venipuncture / Unknown 10/30/2013 5:46 PM CDT 10/30/2013 5:58 PM CDT Umer Quezadadonald YOUNGN-INTRAOPERATIVE NEURO TECH LAB - CHEMISTRY ORDERABLES Performing Organization Address City/[facility]/ZIP Co de Phone Number [facility] [address] [place] [phone] * (ABNORMAL) T4 TOTAL (10/30/2013 5:46 PM CDT) Only the most recent of7 resultswithin the time period is included. [facility] T4 Total 3.65(LL) 4.87 - 11.7 ug/dL 10/30/2013 7:26 PM CDT [facility] Blood BLOOD SPECIMEN / Unknown Lab Venipuncture / Unknown 10/30/2013 5:46 PM CDT 10/30/2013 5:58 PM CDT Umer Quezadadonald OVALLES-INTRAOPERATIVE NEURO TECH LAB - CHEMISTRY ORDERABLES Performing Organization Address City/[facility]/ZIP Co de Phone Number [facility] [address] [place] [phone] * CULTURE STREP GROUP A (06/19/2013 7:30 PM CDT) [facility] Culture Beta Strep No Growth of Groups A, C or G Beta Streptococc us. [facility] Throat swab (specimen) ENTIRE THROAT (SURFACE REGION OF NECK) / Unknown 06/19/2013 7:30 PM CDT 06/20/2013 9:35 PM CDT Narrative [facility] - 06/22/2013 9:16 AM CDT LuisSpeccarlito#[id number] Luis Loc/Rm/Bed: EXPCARE B// Historical Provider MD LAB - MICROBIOLOG Y ORDERABLES [address] [phone] * SS-B ANTIBODY (11/14/2012 3:04 PM CDT) Only the most recent of2 resultswithin the time period is included. SS-B Antibody 0.22 11/19/2012 2:36 PM CDT [facility] Blood BLOOD SPECIMEN / Unknown Lab Venipuncture / Unknown 11/14/2012 3:04 PM CDT 11/14/2012 3:23 PM CDT Narrative [facility] - 11/19/2012 2:36 PM CDT <20 Negative 20 - 25 Borderline Positive >25 Positive Lloyd Redd DO LAB - CHEMISTRY ORDBeny ABREU Performing Organization Address City/[facility] Co de Phone Number [facility] [address] [place] [address] * SS-A ANTIBODY (11/14/2012 3:04 PM CDT) Only the most recent of2 resultswithin the time period is included. SS-A Antibody 0.0 11/19/2012 2:36 PM CDT [facility] Blood BLOOD SPECIMEN / Unknown Lab Venipuncture / Unknown 11/14/2012 3:04 PM CDT 11/14/2012 3:23 PM CDT Narrative [facility] - 11/19/2012 2:36 PM CDT <20 Negative 20 - 25 Borderline Positive >25 Positive Lloyd Redd DO LAB - CHEMISTRY MI ABREU Performing Organization Address City/[facility] Co de Phone Number [facility] [address] [place] [phone] * ALDOLASE (11/14/2012 3:04 PM CDT) Only the most recent of3 resultswithin the time period is included. Aldolase 3.9 3.3 - 9.7 U/L 11/16/2012 9:36 PM CDT [facility] Comment: REFERENCE INTERVAL: Aldolase Access complete set of age- and/or gender-specific reference intervals for this test in the [facility] Test Directory ([employer]). Blood specimen (specimen) BLOOD SPECIMEN / Unknown Lab Venipuncture / Unknown 11/14/2012 3:04 PM CDT 11/14/2012 3:23 PM CDT Lloyd Redd DO LAB - CHEMISTRY [employer] [facility] [employer] [address] [place] [address] * LDH BLOOD (11/14/2012 3:04 PM CDT) Only the most recent of2 resultswithin the time period is included. LDH 179 140 - 260 U/L 11/14/2012 4:09 PM CDT [facility] Blood BLOOD SPECIMEN / Unknown Lab Venipuncture / Unknown 11/14/2012 3:04 PM CDT 11/14/2012 3:23 PM CDT Lloyd Redd LAB - CHEMISTRY [employer] ABREU Performing Organization Address [facility] Co de Phone Number [facility] [place] [address] * CK BLOOD (11/14/2012 3:04 PM CDT) Only the most recent of3 resultswithin the time period is included. CK 61 29 - 168 U/L 11/14/2012 5:08 PM CDT [facility] Blood BLOOD SPECIMEN / Unknown Lab Venipuncture / Unknown 11/14/2012 3:04 PM CDT 11/14/2012 3:23 PM CDT Lloyd JimmieUche Redd LAB - CHEMISTRY MI ABREU Performing Organization Address City/[facility]/ZIP Co de Phone Number [facility] [address] [place] [address] * T4 FREE (11/14/2012 3:04 PM CDT) Only the most recent of6 resultswithin the time period is included. T4 Free 0.81 0.70 - 1.48 ng/dL 11/14/2012 4:37 PM CDT [facility] Blood BLOOD SPECIMEN / Unknown Lab Venipuncture / Unknown 11/14/2012 3:04 PM CDT 11/14/2012 3:23 PM CDT Lloyd Barriga Coalgood DO LAB - CHEMISTRY MI ABREU Performing Organization Address [facility] de Phone Number [facility] [address] [place] [address] * CAROLYN BLOOD SCREEN W/REFLEX TITER (08/15/2012 3:08 PM CDT) Only the most recent of3 resultswithin the time period is included. Pathologist [facility] CAROLYN Negative Negative 08/19/2012 10:15 AM CDT [facility] Blood specimen (specimen) BLOOD SPECIMEN / Unknown Lab Venipuncture / Unknown 08/15/2012 3:08 PM CDT 08/15/2012 3:15 PM CDT Lloyd JimmieUche Redd LAB - CHEMISTRY MI ABREU Performing Organization Address [facility] de Phone Number [facility] [address] [place] [address] * LAB RESULTS ORDER (07/27/2012 11:48 AM CDT) Only the most recent of3 resultswithin the time period is included. Narrative 07/27/2012 11:48 AM CDT A scan was deleted from the Results section by S Interface [[id number]] on 07/27/2012 at 11:48 AM (File: [id number]) Transcriptions Document, Scanned - 07/27/2012 11:48 AM CDT Scanned Document LAB - THERAPEUTIC DR UG MONITORING ORDERABLES * RHEUMATOID FACTOR BLOOD SCREEN (10/19/2011 3:11 PM CDT) Only the most recent of3 resultswithin the time period is included. Rheumatoid Factor Negative Negative 10/19/2011 7:11 PM CDT [facility] Blood specimen (specimen) BLOOD SPECIMEN / Unknown 10/19/2011 3:11 PM CDT 10/19/2011 3:24 PM CDT Yasmeen Nichols MD LAB - CHEMISTRY MI ABREU Performing Organization Address [facility] Co de Phone Number [facility] [address] [place] [address] * (ABNORMAL) LIPID PROFILE (10/19/2011 3:11 PM CDT) Cholesterol 154 <170 mg/dL 10/19/2011 4:12 PM CDT [facility] Triglycerides 199 46 - 227 mg/dL 10/19/2011 4:12 PM CDT [facility] HDL Cholesterol 35(L) >40 mg/dL 2 4:12 PM CDT [facility] LDL Calculated 79 <100 mg/dL 10/19/2011 4:12 PM CDT [facility] Chol HDL Ratio 4.4 <=5.0 10/19/2011 4:12 PM CDT [facility] Blood specimen (specimen) BLOOD SPECIMEN / Unknown 10/19/2011 3:11 PM CDT 10/19/2011 3:24 PM CDT Narrative [facility] - 10/19/2011 4:12 PM CDT Lipid Profile Comment: Adult references ranges are the recommendation of the [place] [employer] , for those patients >18 years old. Cholestrol LDL Triglycerides HDL -- -- -- <40 Low <170 <100 <150 Desirable 170-199 130-159 150-199 Borderline High >200 160-189 200-499 >60 High Risk factor status for Coronary Artery Disease is necessary to place these lab findings in perspective. Note: This test is for fasting patients only. A non-fasting state may alter some of these results. Yasmeen Nichols MD LAB - CHEMISTRY MI ABREU Performing Organization Address [facility]/ZIP Co de Phone Number [facility] [address] [place] [address] * XR SACROILIAC JOINTS 3+ VW (10/13/2010 5:31 PM CDT) Anatomical Region Laterality Modality Pelvis, Lower Extremity [facility] 10/14/2010 12:0 0 PM CDT Impressions 10/14/2010 12:00 PM CDT Normal. Narrative 10/14/2010 12:00 PM CDT Sacroiliac joints 3 views No prior examinations are available for comparison. Spina bifida occulta is noted at S1. No abnormal bone production or destruction is present. The joint spaces are maintained. Procedure Note Melissa Castañeda MD - 10/14/2010 Sacroiliac joints 3 views No prior examinations are available for comparison. Spina bifida occulta is noted at S1. No abnormal bone production or destruction is present. The joint spaces are maintained. IMPRESSION Normal. Yasmeen Nichols MD DIAGNOSTIC IMAGING O RDERABLES * XR KNEE 1 OR 2 VW RIGHT (10/13/2010 5:30 PM CDT) Anatomical Region Laterality Modality Lower Extremity Radiographic Mariaelena ging 10/14/2010 8:46 AM CDT Impressions 10/14/2010 10:20 AM CDT No acute fracture or dislocation involving the right knee. D: Irma Lozoya M.D. Narrative 10/14/2010 10:20 AM CDT Exam: Right knee, two-view Date: 10/13/2010 Comparison: None available History: Polyarticular juvenile rheumatoid arthritis, pain Findings: There is no acute fracture or dislocation involving the right knee. The joint spaces are preserved. The adjacent soft tissues are unremarkable. Procedure Note Melissa Castañeda MD - 10/14/2010 Exam: Right knee, two-view Date: 10/13/2010 Comparison: None available History: Polyarticular juvenile rheumatoid arthritis, pain Findings: There is no acute fracture or dislocation involving the right knee. The joint spaces are preserved. The adjacent soft tissues are unremarkable. IMPRESSION No acute fracture or dislocation involving the right knee. D: Irma Lozoya M.D. Yasmeen Nichols MD DIAGNOSTIC IMAGING O RDERABLES * XR LUMBAR SPINE 2 OR 3 VW (10/13/2010 5:30 PM CDT) Anatomical Region Laterality Modality Spine Radiographic Mariaelena ging 10/14/2010 11:2 1 AM CDT Impressions 10/14/2010 1:10 PM CDT No acute fracture or dislocation. D: Irma Lozoya M.D. Narrative 10/14/2010 1:10 PM CDT Exam: Lumbosacral spine, 3 views Date: October 13, 2010 Comparison: None available History: Polyarticular juvenile rheumatoid arthritis Findings: There is no acute fracture or malalignment. The vertebral body heights are maintained. The intervertebral disc spaces are preserved. Procedure Note Melissa Castañeda MD - 10/14/2010 Exam: Lumbosacral spine, 3 views Date: October 13, 2010 Comparison: None available History: Polyarticular juvenile rheumatoid arthritis Findings: There is no acute fracture or malalignment. The vertebral body heights are maintained. The intervertebral disc spaces are preserved. IMPRESSION No acute fracture or dislocation. D: Irma Lozoya M.D. Yasmeen Nichols MD DIAGNOSTIC IMAGING O RDERABLES * SM ANTIBODY JORGE (10/13/2010 4:55 PM CDT) Gar (JORGE) Antibody 1.04 SEE BELOW EU [facility] Comment: <20 Negative 20-25 Borderline Positive >25 Positive Interpretation Autoimmune Antibody [facility] Comment: Comments and Normal Ranges for Component *Autoimmune Ab interp Borderline results have been retested. Spanish Translator states that if results are still borderline, the test sample has no significant antibodies. BLOOD SPECIMEN / Unknown 10/13/2010 4:55 PM CDT 10/13/2010 5:02 PM CDT Narrative Resulting Agency Comment Performed By [facility] [address] [place] [address] Yasmeen Nichols MD LAB - CHEMISTRY MI ABREU [facility] [address] [facility] [place] [address] * HAND BUFFER ANTIBODY (10/13/2010 4:55 PM CDT) HAND BUFFER Antibody 5.09 SEE BELOW EU [facility] Comment: <20 Negative 20-25 Borderline Positive >25 Positive Interpretation Autoimmune Antibody [facility] Comment: Borderline results have been retested. Spanish Translator states that if results are still borderline, the test sample has no significant antibodies. BLOOD SPECIMEN / Unknown 10/13/2010 4:55 PM CDT 10/13/2010 5:02 PM CDT Narrative Resulting Agency Comment Performed By [facility] [address] [place] [address] Yasmeen Nichols MD LAB - CHEMISTRY MI ABREU Performing Organization Address [facility] de Phone Number [facility] [address] [place] [id number] * SCL70 ANTIBODY (10/13/2010 4:55 PM CDT) SCL-70 Antibody 0.38 SEE BELOW [facility] Comment: <20 Negative 20-25 Borderline Positive >25 Positive Interpretation Autoimmune Antibody [facility] Comment: Borderline results have been retested. Spanish Translator states that if results are still borderline, the test sample has no significant antibodies. BLOOD SPECIMEN / Unknown 10/13/2010 4:55 PM CDT 10/13/2010 5:02 PM CDT Narrative Resulting Agency Comment Performed By [facility] [address] [place] [address] Yasmeen Nichols MD LAB - CHEMISTRY MI ABREU Performing Organization Address [facility] de Phone Number [facility] [address] [place] [phone] * DNA ANTIBODY DOUBLE STRAND (10/13/2010 4:55 PM CDT) dsDNA Antibody 1.21 SEE BELOW IU [facility] Comment: <25 Negative 25-30 Borderline Positive 30-60 Low Positive 60-200 Positive >200 Strong Positive Comment dsDNA [facility] Comment: dsDNA antibodies are screened using an ELA assay. Positive results are reflexed to titer by IFA. BLOOD SPECIMEN / Unknown 10/13/2010 4:55 PM CDT 10/13/2010 5:02 PM CDT Narrative Resulting Agency Comment Performed By [facility] [address] [place] [address] Yasmeen Nichols MD LAB - HEMATOLOGY ORD ERABLES Performing Organization Address [facility] de Phone Number [facility] [address] [place] [address] * CYCLIC CITRUL PEPTIDE AB IGG (CCP) (10/13/2010 4:55 PM CDT) Only the most recent of2 resultswithin the time period is included. Cyclic Citrullinated Peptide Antibody IgG 0.41 <5.0 units [facility] BLOOD SPECIMEN / Unknown 10/13/2010 4:55 PM CDT 10/13/2010 5:02 PM CDT Narrative Resulting Agency Comment Performed By [facility] [address] [place] [address] Yasmeen Nichols MD LAB - CHEMISTRY MI ABREU Performing Organization Address [facility] Co de Phone Number [facility] [address] [place] [address] * DIFFERENTIAL MANUAL (10/13/2010 4:55 PM CDT) Comment Manual Diff Done [facility] Band % Manual 2 % [facility] Neutrophils % Manual 55 24 - 66 % [facility] Lymphocytes % Manual 30 22 - 61 % [facility] Monocytes % Manual 9 3 - 15 % [facility] Eosinophils % Manual 4 0 - 10 % [facility] RBC Morphology Slight Anisocytosis Poikylocytosis Ovalocytes [facility] BLOOD SPECIMEN / Unknown 10/13/2010 4:55 PM CDT 10/13/2010 8:14 PM CDT Jami Diaz MD LAB - HEMATOLOGY ORD ERABLES Performing Organization Address [facility] Co de Phone Number [facility] [address] [place] [address] * XR KNEE 1 OR 2 VW LEFT (10/13/2010 5:30 AM CDT) Anatomical Region Laterality Modality Lower Extremity Radiographic Mariaelena ging 10/14/2010 11:2 4 AM CDT Impressions 10/14/2010 1:10 PM CDT No acute fracture or dislocation of the knee. D: Irma Lozoya M.D. Narrative 10/14/2010 1:10 PM CDT Exam: Left knee, 2 views Date: October 13, 2010 Comparison: None available History: Polyarticular juvenile rheumatoid arthritis Findings: There is no acute fracture or dislocation. The joint spaces are preserved. The adjacent soft tissues are unremarkable. Procedure Note Melissa Castañeda MD - 10/14/2010 Exam: Left knee, 2 views Date: October 13, 2010 Comparison: None available History: Polyarticular juvenile rheumatoid arthritis Findings: There is no acute fracture or dislocation. The joint spaces are preserved. The adjacent soft tissues are unremarkable. IMPRESSION No acute fracture or dislocation of the knee. D: Irma Lozoya M.D. Yasmeen Nichols MD DIAGNOSTIC IMAGING O RDERABLES * (ABNORMAL) THYROID ANTIBODY PANEL (01/06/2010 3:35 PM FIRE PRODUCTION OPERATOR) Thyroglobulin Antibody <0.9 0.0 - 4.0 IU/ml [facility] Thyroid Peroxidase TPO Antibody 714.7(H) 0.0 - 9.0 IU/ml [facility] Comment Ref Lab [facility] Comment: TEST INFORMATION: Thyroglobulin Antibody A value of 4.0 IU/mL or less indicates a negative result for thyroglobulin antibodies. BLOOD SPECIMEN / Unknown 01/06/2010 3:35 PM FIRE PRODUCTION OPERATOR 01/06/2010 3:47 PM FIRE PRODUCTION OPERATOR Narrative [facility] - 01/09/2010 9:56 PM FIRE PRODUCTION OPERATOR 1 Resulting Agency Comment Performed By [facility] [address] [place] [id number] Saray Herrmann MD LAB - SENIOR SUSTAINABILITY CONSULTANT RY ORDERABLES [facility] [place] [address] * T3 TOTAL (05/28/2009 3:27 PM CDT) Only the most recent of2 resultswithin the time period is included. T3 Total 0.89 0.83 - 2.13 ng/ml [facility] BLOOD SPECIMEN / Unknown 05/28/2009 3:27 PM CDT 05/28/2009 3:45 PM CDT Jami Diaz MD LAB - CHEMISTRY MI ABREU Performing Organization Address City/[facility]/ZIP Co de Phone Number [facility] * (ABNORMAL) VITAMIN D 25-HYDROXY (05/27/2009 3:00 PM CDT) Vitamin D, 25 Hydroxy 22.30(L) 30 - 100 ng/ml [facility] BLOOD SPECIMEN / Unknown 05/27/2009 3:00 PM CDT 05/27/2009 3:25 PM CDT Narrative Resulting Agency Comment Performed By [facility] [address] [place] [address] Jami Diaz MD LAB - CHEMISTRY MI ABREU Performing Organization Address [facility] Co de Phone Number [facility] * GROSS EXAM PATHOLOGY (09/08/2008 8:30 AM CDT) Result CASE NUMBER [id number] [facility] PATH REPORT Comment: ORDERING PHYSICIAN REGINA SUN SPECIMEN TYPE Tonsils CLINICAL HISTORY The patient is a 13-year-old girl with chronic tonsillitis and adenotonsillar hypertrophy. GROSS DESCRIPTION Submitted fresh in one container for gross examination only, labeled with the patient's name, Tracy De La Torre. Glass and tonsils are two egg- shaped, pink-mccormack palatine tonsils measuring 3.4 x 1.8 x 1 cm and 3.2 x 1.9 x 1 cm, weighing approximately 11 grams combined. On cut surface, the tonsils have a cerebriform, yellow-mccormack appearance. No sections are taken. (RL/nab) GROSS DIAGNOSIS GROSS DIAGNOSIS PALATINE TONSILS. This case has been personally reviewed and interpreted by the attending (teaching) pathologist. [employer] BETTE ORTEGA PATHOLOGIST Gera Rao M.D. ELECTRONICALLY KENNY Gera Rao MISCELLANEOUS SAMPLES / Unknown 09/08/2008 8:30 AM CDT 09/08/2008 9:09 AM CDT Historical Provider LAB - PATHOLOGY/C YTOLOGY ORDERABLES [facility] PATH REPORT Care Teams Organic Chemistry Professor Relationship Specialty Start Date End Date Corky Tejada MD PCP - General 09/04/17
[2024-03-17 14:44] LABS: EDINFLUASCREEN Negative (Negative); EDINFLUBSCREEN Negative (Negative)
--- NOTE | 2024-03-17 14:52 | ED.URI ---
HPI - URI/Sore Throat General Chief Complaint: Upper Respiratory Infection Stated Complaint: flu symptoms Time Seen by Provider: 03/17/24 14:52 Source: patient and RN notes reviewed Mode of arrival: ambulatory Limitations: no limitations History of Present Illness HPI Narrative: 28-year-old female presented for complaint of headache, sinus pressure/congestion, cough, fever/chills. onset 2 days. son with influenza. Denies sob, wheezing, n/v/d. Reports a fever blister to the lower lip this morning. Has not taken anything for symptoms yet today. MD elicited complaint: cough Related Data Home Medications ?Medication ?Instructions ?Recorded ?Confirmed ?Last Taken ?Type venlafaxine 75 mg tablet 75 mg PO BID 05/29/21 01/12/24 Unknown History venlafaxine 37.5 mg 37.5 mg PO DAILY 10/27/22 01/12/24 Unknown History capsule,extended release 24 hr blood-glucose sensor (Dexcom G6 07/16/23 01/12/24 Unknown History Sensor device) insulin pump cart,automated,BT 07/16/23 01/12/24 Unknown History (Omnipod 5 G6 Pods (Gen 5) subcutaneous cartridge) norgestimate 0.25 mg-ethinyl See Rx Instructions .Route .COMPLEX 07/16/23 01/12/24 Unknown History estradiol 35 mcg tablet (Sprintec (28)) ziprasidone HCl 40 mg capsule 40 mg PO DAILY 07/16/23 01/12/24 Unknown History buspirone 15 mg tablet mg 03/17/24 Unknown History clonazepam 0.5 mg tablet mg 03/17/24 Unknown History levothyroxine 175 mcg tablet mcg 03/17/24 Unknown History Allergies Allergy/AdvReac Type Severity Reaction Status Date / Time cefuroxime Allergy Mild Hives Verified 03/17/24 14:28 prednisone AdvReac Severe Other Verified 03/17/24 14:28 adalimumab AdvReac Mild HIVES Verified 03/17/24 14:28 cefprozil AdvReac Mild Hives / Verified 03/17/24 14:28 Red Face Cephalosporins AdvReac Mild Hives / Verified 03/17/24 14:28 Red Face etanercept AdvReac Mild Hives / Verified 03/17/24 14:28 Red Face naproxen AdvReac Mild Hives Verified 03/17/24 14:28 Review of Systems Review of Systems: per HPI COUNT INCLUDES THE [facility] Past Medical History Medical History Anxiety and depression Asthma COVID-23 Jun 2021 Diabetes type I Hx of migraines Hypothyroid PTSD (post-traumatic stress disorder) Surgical History Surgical History History of tonsillectomy S/P ureteral stent placement several ureteral stent surgeries Family History Family History Mother Family history non-contributory Social History Social History Smoking status: Current every day smoker Tobacco type: e-cigarettes/vaping Alcohol intake: unknown Substance use type: marijuana Living arrangements: with family Gender identity (if verbalized by the patient): Female Exam Narrative: GENERAL: Ill-appearing, nontoxic EYES: PERRLA, conjunctivae clear ENT: Mucous membranes moist. Vesicle noted to lower lip TM pearly henderson with dull light reflex bilaterally; no tragal tenderness. Oropharynx erythematous without lesions or exudate, no drooling, no hoarseness, no trismus, uvula midline. No tripod positioning, muffled voice, soft palate or pharyngeal wall bulging NECK: Supple. No lymphadenopathy CHEST: Clear to auscultation, breath sounds equal. No wheezing, rhonchi, rales, or stridor. No respiratory distress, speaks in full sentences. HEART: Regular rate and rhythm. No murmur heard. SKIN: Warm, dry, no rash. NEURO: Alert and oriented x3. PSYCH: Normal mood and affect Course Course Emergency Course: Patient is aware of diagnosis, understands and agrees to treatment plan. Anticipatory guidance given. Patient agrees to follow-up as directed and is aware of reasons to seek care at the emergency department. Portions of this record may have been created with voice recognition software Level of Care: Express Care Visit Vital Signs Vital signs: Vital Signs Temperature 98.3 F 03/17/24 14:20 Pulse Rate 90 03/17/24 14:20 Respiratory Rate 20 03/17/24 14:20 Blood Pressure 108/69 02/10/25 14:20 Pulse Oximetry 100 03/17/24 14:20 Oxygen Delivery Room Air 03/17/24 14:20 Temperature 98.3 F 03/17/24 14:20 Pulse Rate 90 03/17/24 14:20 Respiratory Rate 20 03/17/24 14:20 Blood Pressure 108/69 03/17/24 14:20 Pulse Oximetry 100 03/17/24 14:20 Oxygen Delivery Room Air 03/17/24 14:20 reviewed MDM - URI/Sore Throat MDM Narrative Medical decision making narrative: negative flu Discussed physical exam findings. Advised supportive measures and signs/symptoms to go to the ER. Pt is appropriate for outpt treatment and f/u. Differential Diagnosis Differential diagnosis: Likely upper respiratory infection, sinusitis and viral infection Lab Data Labs: Lab Results 03/17/24 Range/Units 14:26 POC Influenza A Ag Negative (Negative) POC Influenza B Ag Negative (Negative) Discharge Plan Discharge Clinical Impression: Viral infection Patient Disposition: Home, Self-Care Condition: Stable Instructions: Influenza (ED) Additional Instructions: You should avoid crowds until you are fever free for 24 hours without the use of fever reducing medications, or the symptoms are improved Rest. Drink plenty of fluids. Tylenol 1000mg every 8 hours as needed for pain/fever Flonase spray and Zyrtec (or Claritin/Rosamaria) for sinus pressure/congestion over the counter Cough syrup may cause drowsiness; avoid driving or take it at night time. Take medication for cold sore as directed. you could try [id number] Abreva as needed as well Follow up with your primary care provider as needed in 1 week Go to the ER for worsening symptoms or concerns Patient Language: Croatian Prescriptions: New valacyclovir [Valtrex] 1 gram tablet 2,000 mg PO Q12H 1 Days Qty: 4 0RF No Action venlafaxine 75 mg Tablet 75 mg PO BID levothyroxine 175 mcg tablet clonazepam 0.5 mg tablet buspirone 15 mg tablet venlafaxine 37.5 mg capsule,extended release 24hr 37.5 mg PO DAILY norgestimate-ethinyl estradiol [Sprintec (28)] 0.25-35 mg-mcg tablet See Rx Instructions .ROUTE .COMPLEX Rx Instructions: PRESCRIBED ziprasidone HCl 40 mg capsule 40 mg PO DAILY (DME) Dexcom G6 Sensor Device MISCELLANEOUS (DME) Omnipod 5 G6 Pods (Gen 5) Cartridge SUBCUT sumatriptan succinate [Imitrex] 50 mg tablet See Rx Instructions .ROUTE .COMPLEX Qty: 10 0RF Rx Instructions: take 1 tab at onset of headache; if no relief may repeat 1 tab after at least 2 hrs; max = 4 tabs/24 hr Follow-up/Referrals: Zeke,Hank Shipley MD [Primary Care Provider] - Stand Alone Forms: Work/School Release IP
== END 2024-03-17 15:03 | disposition home or self-care (01) ==
PROVIDERS: Emergency Provider Nurse Practitioner Family; PCP Family Medicine
DX: B34.9 Viral infection, unspecified (principal); Z20.822 Contact with and (suspected) exposure to COVID-19; J45.909 Unspecified asthma, uncomplicated; E10.9 Type 1 diabetes mellitus without complications; E03.9 Hypothyroidism, unspecified; Z86.16 Personal history of COVID-19; F41.9 Anxiety disorder, unspecified; F32.A Depression, unspecified
CPT/HCPCS: 87804; 99213; G0463